=== PATIENT | male | born 1990 | race Caucasian/White ===

== ENCOUNTER 2019-02-10 16:28 | Inpatient (IN) | payer OTHER ==
[~2019-02-10] VITALS: Ht 188 cm; Wt 93.0 kg
[2019-02-10 17:11] VITALS: Ht 188 cm; Wt 93.0 kg
[2019-02-10] MEDS ORDERED: SOD CHLORIDE 0.9% 1,000 ML IV STA (19:12)
[2019-02-10] MEDS ORDERED: ONDANSETRON 4 MG INJ IV STA (19:12)
[2019-02-10] MEDS ORDERED: morphine 4 MG/ML VIAL IV STA ×2 (19:12→21:25)
--- NOTE | 2019-02-10 21:41 | ERD ---
ER Documentation Chief Complaint Chief Complaint cough & body aches last week, ap w/constipation today HPI 28-year-old male presents with multiple complaints. Slight cough and body aches starting last week. Over the last days been having abdominal pain. He said 1-2 episodes of vomiting nonbilious nonbloody. He did have episode of diarrhea today. Diarrhea was out without blood or mucus. Patient denies any suspicious food or foreign travel. Patient points to the mid lower abdomen is primary source of pain. Denies urinary complaints. Pain described as 8 out of 10 and radiates to the right lower back. ROS All systems reviewed and are negative except as per history of present illness. Allergies Allergies: Coded Allergies: No Known Allergy (Unverified , 02/10/19) PMhx/Soc Medical and Surgical Hx: pt denies Medical Hx, pt denies Surgical Hx Hx Alcohol Use: No Hx Substance Use: No Hx Tobacco Use: No Smoking Status: Never smoker FmHx Family History: No diabetes, No coronary disease, No other Physical Exam Vitals Vital Signs Date Temp Pulse Resp B/P (MAP) Pulse Ox O2 O2 Flow FiO2 Time Delivery Rate 02/10/19 100.0 83 18 137/70 99 17:11 (92) Physical Exam Const: No acute distress Head: Atraumatic Eyes: Normal Conjunctiva ENT: Normal External Ears, Nose and Mouth. Neck: Full range of motion. No meningismus. Resp: Clear to auscultation bilaterally Cardio: Regular rate and rhythm, no murmurs Abd: Soft, non tender, non distended. Normal bowel sounds Skin: No petechiae or rashes Back: No midline or flank tenderness Ext: No cyanosis, or edema Neur: Awake and alert Psych: Normal Mood and Affect Result Diagram: 02/10/19194802/10/191948 Results 24 hrs Laboratory Tests Test 02/10/19 19:49 White Blood Count 15.2 10^3/ul Red Blood Count 5.06 10^6/ul Hemoglobin 13.9 g/dl Hematocrit 42.2 % Mean Corpuscular Volume 83.4 fl Mean Corpuscular Hemoglobin 27.5 pg Mean Corpuscular Hemoglobin Concent 32.9 g/dl Red Cell Distribution Width 13.5 % Platelet Count 334 10^3/UL Mean Platelet Volume 10.5 fl Immature Granulocytes % 0.300 % Neutrophils % 89.2 % Lymphocytes % 2.3 % Monocytes % 7.8 % Eosinophils % 0.0 % Basophils % 0.4 % Nucleated Red Blood Cells % 0.0 /100WBC Immature Granulocytes # 0.050 10^3/ul Neutrophils # 13.6 10^3/ul Lymphocytes # 0.4 10^3/ul Monocytes # 1.2 10^3/ul Eosinophils # 0.0 10^3/ul Basophils # 0.1 10^3/ul Nucleated Red Blood Cells # 0.0 10^3/ul Urine Color ALEXANDRE Urine Clarity SLIGHTLY CLOUDY Urine pH 5.0 Urine Specific [place] 1.027 Urine Ketones NEGATIVE mg/dL Urine Nitrite NEGATIVE mg/dL Urine Bilirubin NEGATIVE mg/dL Urine Urobilinogen NEGATIVE mg/dL Urine Leukocyte Esterase NEGATIVE Michelle/ul Urine Microscopic RBC 1 /HPF Urine Microscopic WBC 5 /HPF Urine Bacteria FEW /HPF Urine Mucus MANY /HPF Urine Hemoglobin NEGATIVE mg/dL Urine Glucose NEGATIVE mg/dL Urine Total Protein 1+ mg/dl Sodium Level 143 mmol/L Potassium Level 3.4 mmol/L Chloride Level 104 mmol/L Carbon Dioxide Level 26 mmol/L Anion Gap 13 Blood Urea Nitrogen 13 mg/dl Creatinine 0.85 mg/dl Est Glomerular Filtrat Rate mL/min > 60 mL/min Glucose Level 136 mg/dl Calcium Level 9.1 mg/dl Total Bilirubin 0.8 mg/dl Direct Bilirubin 0.00 mg/dl Indirect Bilirubin 0.8 mg/dl Aspartate Amino Transf (AST/SGOT) 18 IU/L Alanine Aminotransferase (ALT/SGPT) 21 IU/L Alkaline Phosphatase 64 IU/L Total Protein 7.9 g/dl Albumin 4.6 g/dl Globulin 3.30 g/dl Albumin/Globulin Ratio 1.39 Lipase 25 U/L Current Medications Medications Dose Sig/Amee Start Time Status Last (Trade) Ordered Route PRN Stop Time Admin Dose Reason Admin Sodium 1,000 ml @ Q1H STAT 02/10/19 DC 02/10/19 Chloride 1,000 mls/hr IV 19:12 20:00 02/10/19 20:11 Morphine 4 mg ONCE STAT 02/10/19 DC 02/10/19 Sulfate IV 19:12 20:01 (morphine) 02/10/19 19:14 Ondansetron 4 mg ONCE STAT 02/10/19 DC 02/10/19 HCl (Zofran IV 19:12 20:00 Inj) 02/10/19 19:14 Morphine 4 mg ONCE STAT 02/10/19 DC Sulfate IV 21:25 (morphine) 02/10/19 21:26 Procedures/MDM CBC is shows leukocytosis and minimal anemia. CMP shows potassium 3.4 otherwise no acute abnormalities and lipase normal. Urine shows ketones without signs of infection, glucose, additional significant abnormalities. Chest X-ray 1V Interpreted by me: Soft Tissue: No acute abnormalities Bones: No acute abnormalities Mediastinum/Cardiac Silhouette/Lungs: No acute abnormalities. impression- normal 1 view chest x-ray Influenza swab negative. Presents with a history of fever and body aches but has developed some lower abdominal pain has low-grade temperature triage. Concern is for surgical abdomen. Patient was given morphine 4 mg IV, Zofran [address] abdomen pelvis with IV contrast ordered. TIFFANY ALANIS MD Feb 10, 2019 21:41
[2019-02-11] MEDS ORDERED: PIPER-TAZO 3.375 GM IV (PMX) 100 ML IVPB ONE
[2019-02-11] MEDS ORDERED: HYDROmorphONE 1 MG/ML SYG IV STA ×2 (00:36→06:08)
[2019-02-11] MEDS ORDERED: ONDANSETRON 4 MG INJ IV STA (00:36)
[2019-02-11] MEDS ORDERED: NACL 0.9% 3 ML SYG IV SCH (02:00)
[2019-02-11] MEDS ORDERED: PIPER-TAZO 3.375 GM IV (PMX) 100 ML IVPB SCH ×2 (02:00→06:00)
[2019-02-11] MEDS ORDERED: ACETAMINOPHEN 325 MG TAB ONE (02:12)
[2019-02-11] MEDS ORDERED: HYDROmorphONE 2 MG/ML SYG IV STA (02:18)
[2019-02-11] MEDS ORDERED: ACETAMINOPHEN 325 MG TAB PO ONE (02:30)
[2019-02-11] MEDS ORDERED: IBUP-1982 PO (04:16)
[2019-02-11] MEDS ORDERED: ACET-141 PO (04:16)
[2019-02-11] MEDS: DEXTROSE 5%-0.45% NACL 1,000 ML IV SCH ×3 (04:25→19:42)
[2019-02-11] MEDS: morphine 2 MG INJ IV PRN ×3 (05:59→13:48)
[2019-02-11] MEDS: ONDANSETRON 4 MG INJ IV PRN (05:59)
--- NOTE | 2019-02-11 08:03 | HP ---
Date/Time of Note Date/Time of Note DATE: 02/11/19 TIME: 08:01 Assessment/Plan VTE Prophylaxis Pharmacological prophylaxis: heparin Lines/Catheters IV Catheter Type (from Nrs): Peripheral IV Assessment/Plan Assessment/Plan 1. Perforated diverticulitis -IV antibiotic -IV fluid -Awaiting surgical eval 2. Sepsis: As evidenced by fever and leukocytosis: Secondary to above -IV fluid and IV antibiotic -Follow-up culture results -See #1 3. History of bilateral kidney stone: No acute issue Result Diagram: 02/11/19 0532 02/11/19 0532 Results 24hrs Laboratory Tests Test 02/10/19 19:49 02/11/19 05:32 White Blood Count 15.2 H 15.5 H Red Blood Count 5.06 4.55 L Hemoglobin 13.9 L 12.7 L Hematocrit 42.2 38.0 L Mean Corpuscular Volume 83.4 83.5 Mean Corpuscular Hemoglobin 27.5 L 27.9 L Mean Corpuscular Hemoglobin Concent 32.9 33.4 Red Cell Distribution Width 13.5 13.9 Platelet Count 334 289 Mean Platelet Volume 10.5 H 10.0 Immature Granulocytes % 0.300 0.500 H Neutrophils % 89.2 H 81.4 H Segmented Neutrophils % (Manual) 62 63 Band Neutrophils % (Manual) 25 H 24 H Lymphocytes % 2.3 L 9.3 L Lymphocytes % (Manual) 4 L 3 L Monocytes % 7.8 8.7 Monocytes % (Manual) 9 9 Eosinophils % 0.0 0.0 Basophils % 0.4 0.1 Nucleated Red Blood Cells % 0.0 0.0 Immature Granulocytes # 0.050 H 0.070 H Neutrophils # 13.6 H 12.7 H Neutrophils # (Manual) 10.0 H 10.3 H Band Neutrophils # 3.8 H 3.7 H Lymphocytes (Manual) 0.6 L 0.4 L Lymphocytes # 0.4 L 1.5 Monocytes # 1.2 H 1.4 H Monocytes # (Manual) 1.3 H 1.3 H Eosinophils # 0.0 0.0 Basophils # 0.1 0.0 Nucleated Red Blood Cells # 0.0 0.0 Platelet Estimate NORMAL NORMAL Poikilocytosis 2+ Urine Color ALEXANDRE Urine Clarity SLIGHTLY CLOUDY A Urine pH 5.0 Urine Specific [place] 1.027 Urine Ketones NEGATIVE Urine Nitrite NEGATIVE Urine Bilirubin NEGATIVE Urine Urobilinogen NEGATIVE Urine Leukocyte Esterase NEGATIVE Urine Microscopic RBC 1 Urine Microscopic WBC 5 Urine Bacteria FEW A Urine Mucus MANY A Urine Hemoglobin NEGATIVE Urine Glucose NEGATIVE Urine Total Protein 1+ H Sodium Level 143 142 Potassium Level 3.4 L 4.8 Chloride Level 104 105 Carbon Dioxide Level 26 30 Anion Gap 13 7 Blood Urea Nitrogen 13 10 Creatinine 0.85 0.86 Est Glomerular Filtrat Rate mL/min > 60 > 60 Glucose Level 136 134 Calcium Level 9.1 9.2 Total Bilirubin 0.8 0.7 Direct Bilirubin 0.00 0.00 Indirect Bilirubin 0.8 0.7 Aspartate Amino Transf (AST/SGOT) 18 16 Alanine Aminotransferase (ALT/SGPT) 21 19 Alkaline Phosphatase 64 56 Total Protein 7.9 7.2 Albumin 4.6 4.0 Globulin 3.30 H 3.20 Albumin/Globulin Ratio 1.39 1.25 Lipase 25 Reactive Lymphocytes % (Manual) 1 H Reactive Lymphocytes # 0.1 H Anisocytosis 1+ Microcytosis 1+ Phosphorus Level 4.4 Magnesium Level 1.9 HPI/ROS Admit Date/Time Admit Date/Time Hx of Present Illness This is a 28-year-old male with a history of bilateral kidney stone who presents to the ER complaining of abdominal pain and constipation. He said initial symptoms started a week ago which went away and recurred for the past 2 days. In the ER, CT shows perforated diverticulitis. Patient denies history of opiate narcotic use saying that he only takes ibuprofen and Tylenol for pain related to his kidney stone. PMH/Family/Social Past Medical History Past Surgical History Past Surgical Hx: other Family History Significant Family History: no pertinent family hx Social History Alcohol Use: other Smoking Status: Unknown if ever smoked Drug Use: other Exam Constitutional: other (no acute distress) Head: normocephalic ENMT: nl external ears & nose Neck: supple Respiratory: normal air movement Cardiovascular: nl pulses Gastrointestinal: soft Extremities: normal pulses Medications Current Medications Dextrose/Sodium Chloride 1,000 ml @ 125 mls/hr Q8H IV Last administered on 02/11/19at 04:25; Admin Dose 125 MLS/HR; Start 02/11/19 at 01:51 IV Flush (NS 3 ml) 3 ml PER PROTOCOL IV ; Start 02/11/19 at 02:00 Ondansetron HCl (Zofran Inj) 4 mg Q6H PRN IV NAUSEA/VOMITING Last administered on 02/11/19at 05:59; Admin Dose 4 MG; Start 02/11/19 at 02:00 Morphine Sulfate (morphine) 4 mg Q4H PRN IV .SEVERE PAIN 7-10 Last administered on 02/11/19at 05:59; Admin Dose 4 MG; Start 02/11/19 at 02:00 Famotidine (Pepcid Iv) 20 mg Q12 IV ; Start 02/11/19 at 09:00 Piperacillin Sod/ Tazobactam Sod 100 ml @ 200 mls/hr Q6 IVPB Last administered on 02/11/19at 06:10; Admin Dose 200 MLS/HR; Start 02/11/19 at 06:00 Coded Allergies: No Known Allergy (Unverified , 02/10/19) Social History Smoking Status: Never smoker Exam/Review of Systems Vital Signs Vitals Vital Signs Date Temp Pulse Resp B/P (MAP) Pulse Ox O2 O2 Flow FiO2 Time Delivery Rate 02/11/19 98.4 81 14 124/83 100 Room Air 06:30 (97) Intake and Output 02/10/19 02/10/19 02/11/19 1515:00 23:00 07:00 IntakeIntake Total 100 ml BalanceBalance 100 ml MARLA JUSTIN MD Feb 11, 2019 08:03
[2019-02-11 08:15] VITALS: BP 132/62; PULSE 78; RESP 18
[2019-02-11] MEDS ORDERED: VANCOMYCIN IV PER PHARMACY XX SCH (08:30)
--- NOTE | 2019-02-11 09:18 | CONS ---
Assessment/Plan Assessment/Plan Hospital Course (Demo Recall) As above the patient was admitted with the IV antibiotics. Patient feels slightly better overnight. Still complains of abdominal pain. CT scan was performed yesterday that showed perforated diverticulitis with the small pockets of free air, Hinchey 2a classification. White count is still 15,000 Problems: (1) Diverticulitis of both large and small intestine with perforation and abscess Status: Acute Qualifiers: Qualified Codes: K57.40 - Diverticulitis of both small and large intestine with perforation and abscess without bleeding Assessment/Plan (Daily) Acute diverticulitis of the sigmoid colon with microperforation and adjustment abscess. Will observe the patient for the next 24-48 hrs. If there is no improvement the patient may need surgical intervention. Consultation Date/Type/Reason Admit Date/Time Date of Consultation: Feb 11, 2019 Type of Consult Surgical Reason for Consultation Perforated diverticulitis Date/Time of Note DATE: 02/11/19 TIME: 09:07 Hx of Present Illness Otherwise healthy 28-year-old male had attack of abdominal pain approximately a week ago that went away spontaneously. Yesterday she developed another attack of diffuse abdominal pain and chills that brought him to emergency room. In the emergency room patient was found to have elevated white blood count up to 15,[address] scan showed perforated diverticulitis of the sigmoid colon with a pockets of free air. Patient was admitted with broad-spectrum antibiotics. Over the night patient did have additional events. He feels slightly better but still complains of a lot of abdominal pain. His maximum temperature was 101 yesterday, heart rate below 100. Constitutional: febrile, other (Abdominal pain) Eyes: no complaints ENT: no complaints Respiratory: no complaints Cardiovascular: no complaints Gastrointestinal: other (See history of the present illness.) Genitourinary: no complaints Musculoskeletal: no complaints Skin: no complaints Neurologic: no complaints Endocrine: no complaints Lymphatic: no complaints Psychological: no complaints, nl mood/affect Immunologic: no complaints Past Medical History Medical History: no pertinent history Home Meds Reported Medications Acetaminophen* (Acetaminophen*) 500 MG Extra Strength Tablet, 500 MG PO Q4H PRN for PAIN AND OR ELEVATED TEMP, TAB 02/11/19 Ibuprofen* (Ibuprofen*) 200 Mg Capsule, 400 MG PO QID PRN for PAIN, CAP 02/11/19 Medications Current Medications Dextrose/Sodium Chloride 1,000 ml @ 125 mls/hr Q8H IV Last administered on 02/11/19at 04:25; Admin Dose 125 MLS/HR; Start 02/11/19 at 01:51 IV Flush (NS 3 ml) 3 ml PER PROTOCOL IV ; Start 02/11/19 at 02:00 Ondansetron HCl (Zofran Inj) 4 mg Q6H PRN IV NAUSEA/VOMITING Last administered on 02/11/19at 05:59; Admin Dose 4 MG; Start 02/11/19 at 02:00 Morphine Sulfate (morphine) 4 mg Q4H PRN IV .SEVERE PAIN 7-10 Last administered on 02/11/19at 05:59; Admin Dose 4 MG; Start 02/11/19 at 02:00 Famotidine (Pepcid Iv) 20 mg Q12 IV ; Start 02/11/19 at 09:00 Piperacillin Sod/ Tazobactam Sod 100 ml @ 200 mls/hr Q6 IVPB Last administered on 02/11/19at 06:10; Admin Dose 200 MLS/HR; Start 02/11/19 at 06:00 Vancomycin HCl (Vanco Iv Per Pharmacy) VANCOMYCIN PER PHARMACY PER PROTOCOL XX ; Start 02/11/19 at 08:30 Vancomycin HCl 1.75 gm/Sodium Chloride 500 ml @ 125 mls/hr ONCE IVPB ; Start 02/11/19 at 10:00; Stop 02/11/19 at 15:00 Vancomycin HCl 1.25 gm/Sodium Chloride 250 ml @ 83.333 mls/ hr Q8H IVPB ; Start 02/11/19 at 18:00 Allergies: Coded Allergies: No Known Allergy (Unverified , 02/10/19) Past Surgical History Past Surgical Hx: no surgical history Family History Significant Family History: no pertinent family hx Social History Alcohol Use: occasionally Smoking Status: Never smoker Exam/Review of Systems Exam Vitals Vital Signs Date Temp Pulse Resp B/P (MAP) Pulse Ox O2 O2 Flow FiO2 Time Delivery Rate 02/11/19 88 16 140/85 100 Room Air 08:01 (103) 02/11/19 98.4 06:30 Intake and Output 02/10/19 02/10/19 02/11/19 1515:00 23:00 07:00 IntakeIntake Total 100 ml BalanceBalance 100 ml Constitutional: alert, oriented, well developed Psych: no complaints, nl mood/affect Head: normocephalic, atraumatic Eyes: nl conjunctiva, EOMI, nl lids, nl sclera, PERRL ENMT: nl external ears & nose, nl lips & teeth, nl nasal mucosa & septum Neck: supple, non-tender Respiratory: clear to auscultation, normal air movement Cardiovascular: regular rate and rhythm, nl pulses Gastrointestinal: other (Abdomen is diffusely tender more on the left left low er quadrant. There is a rebound sign in the left lower quadrant.) Musculoskeletal: nl extremities to inspection, nl gait and stance Extremities: normal pulses Neurological: RIP SAWYER II-XII intact, nl mental status, nl speech, nl strength Skin: nl turgor; No rash or lesions Lymph: nl lymph nodes Results Result Diagram: 02/11/19 0532 02/11/19 0532 Results 24hrs Laboratory Tests Test 02/10/19 19:49 02/11/19 05:32 White Blood Count 15.2 H 15.5 H Red Blood Count 5.06 4.55 L Hemoglobin 13.9 L 12.7 L Hematocrit 42.2 38.0 L Mean Corpuscular Volume 83.4 83.5 Mean Corpuscular Hemoglobin 27.5 L 27.9 L Mean Corpuscular Hemoglobin Concent 32.9 33.4 Red Cell Distribution Width 13.5 13.9 Platelet Count 334 289 Mean Platelet Volume 10.5 H 10.0 Immature Granulocytes % 0.300 0.500 H Neutrophils % 89.2 H 81.4 H Segmented Neutrophils % (Manual) 62 63 Band Neutrophils % (Manual) 25 H 24 H Lymphocytes % 2.3 L 9.3 L Lymphocytes % (Manual) 4 L 3 L Monocytes % 7.8 8.7 Monocytes % (Manual) 9 9 Eosinophils % 0.0 0.0 Basophils % 0.4 0.1 Nucleated Red Blood Cells % 0.0 0.0 Immature Granulocytes # 0.050 H 0.070 H Neutrophils # 13.6 H 12.7 H Neutrophils # (Manual) 10.0 H 10.3 H Band Neutrophils # 3.8 H 3.7 H Lymphocytes (Manual) 0.6 L 0.4 L Lymphocytes # 0.4 L 1.5 Monocytes # 1.2 H 1.4 H Monocytes # (Manual) 1.3 H 1.3 H Eosinophils # 0.0 0.0 Basophils # 0.1 0.0 Nucleated Red Blood Cells # 0.0 0.0 Platelet Estimate NORMAL NORMAL Poikilocytosis 2+ Urine Color ALEXANDRE Urine Clarity SLIGHTLY CLOUDY A Urine pH 5.0 Urine Specific [place] 1.027 Urine Ketones NEGATIVE Urine Nitrite NEGATIVE Urine Bilirubin NEGATIVE Urine Urobilinogen NEGATIVE Urine Leukocyte Esterase NEGATIVE Urine Microscopic RBC 1 Urine Microscopic WBC 5 Urine Bacteria FEW A Urine Mucus MANY A Urine Hemoglobin NEGATIVE Urine Glucose NEGATIVE Urine Total Protein 1+ H Sodium Level 143 142 Potassium Level 3.4 L 4.8 Chloride Level 104 105 Carbon Dioxide Level 26 30 Anion Gap 13 7 Blood Urea Nitrogen 13 10 Creatinine 0.85 0.86 Est Glomerular Filtrat Rate mL/min > 60 > 60 Glucose Level 136 134 Calcium Level 9.1 9.2 Total Bilirubin 0.8 0.7 Direct Bilirubin 0.00 0.00 Indirect Bilirubin 0.8 0.7 Aspartate Amino Transf (AST/SGOT) 18 16 Alanine Aminotransferase (ALT/SGPT) 21 19 Alkaline Phosphatase 64 56 Total Protein 7.9 7.2 Albumin 4.6 4.0 Globulin 3.30 H 3.20 Albumin/Globulin Ratio 1.39 1.25 Lipase 25 Reactive Lymphocytes % (Manual) 1 H Reactive Lymphocytes # 0.1 H Anisocytosis 1+ Microcytosis 1+ Phosphorus Level 4.4 Magnesium Level 1.9 Medications Medication Current Medications Dextrose/Sodium Chloride 1,000 ml @ 125 mls/hr Q8H IV Last administered on 02/11/19at 04:25; Admin Dose 125 MLS/HR; Start 02/11/19 at 01:51 IV Flush (NS 3 ml) 3 ml PER PROTOCOL IV ; Start 02/11/19 at 02:00 Ondansetron HCl (Zofran Inj) 4 mg Q6H PRN IV NAUSEA/VOMITING Last administered on 02/11/19at 05:59; Admin Dose 4 MG; Start 02/11/19 at 02:00 Morphine Sulfate (morphine) 4 mg Q4H PRN IV .SEVERE PAIN 7-10 Last administered on 02/11/19at 05:59; Admin Dose 4 MG; Start 02/11/19 at 02:00 Famotidine (Pepcid Iv) 20 mg Q12 IV ; Start 02/11/19 at 09:00 Piperacillin Sod/ Tazobactam Sod 100 ml @ 200 mls/hr Q6 IVPB Last administered on 02/11/19at 06:10; Admin Dose 200 MLS/HR; Start 02/11/19 at 06:00 Vancomycin HCl (Vanco Iv Per Pharmacy) VANCOMYCIN PER PHARMACY PER PROTOCOL XX ; Start 02/11/19 at 08:30 Vancomycin HCl 1.75 gm/Sodium Chloride 500 ml @ 125 mls/hr ONCE IVPB ; Start 02/11/19 at 10:00; Stop 02/11/19 at 15:00 Vancomycin HCl 1.25 gm/Sodium Chloride 250 ml @ 83.333 mls/ hr Q8H IVPB ; Start 02/11/19 at 18:00 CARMEN CHAIREZ MD Feb 11, 2019 09:18
[2019-02-11] MEDS: FAMOTIDINE 20 MG INJ IV SCH ×2 (09:50→22:03)
[2019-02-11] MEDS ORDERED: VANCOMYCIN HCL 1.75 GM in SOD CHLORIDE 0.9% 500 ML IVPB SCH (10:00)
--- NOTE | 2019-02-11 10:55 | CONS ---
DATE OF ADMISSION: 02/11/2019 DATE OF CONSULTATION: 02/11/2019 TYPE OF CONSULTATION: Infectious Disease. REASON FOR CONSULTATION: Antibiotic management. HISTORY OF PRESENT ILLNESS: Kain Pagan is a 28-year-old male who comes in with cough, body aches and multiple complaints. His cough and body aches started last week. He has had abdominal pa in, one to two episodes of nausea and vomiting as well as diarrhea today, the day of admission. His m id lower abdomen is the primary source of pain. Denies urinary complaints. Pain is described as 8/1 0. FAMILY HISTORY: Unremarkable. FAMILY HISTORY: Unremarkable. SOCIAL HISTORY: He does not smoke, drink or abuse drugs. ALLERGIES: NONE TO PENICILLIN, SULFA OR FOODS. MEDICATIONS: Per chart. REVIEW OF SYSTEMS: Noncontributory. PHYSICAL EXAMINATION: GENERAL: He is in no acute distress. VITAL SIGNS: T-max of 100. SKIN: Without generalized rash. HEENT: Within normal limits. NECK: Supple. LYMPH NODES: None palpable. CHEST: Decreased breath sounds at the bases. HEART: Without murmur or gallop. ABDOMEN: Soft, nontender, without organosplenomegaly or masses. EXTREMITIES: Without cyanosis, clubbing, or edema. RECTAL AND GENITAL: Deferred. NEUROLOGIC: No focal neurological abnormality. ANCILLARY LABORATORY DATA: White count is 15.2, H and H 13.9 and 42.2, platelet count 334,000. BUN and creatinine 13/0.85, potassium of 3.4, glucose 136. He has 89% neutrophils with a white count of 15.2 and his urine is unremarkable. Chest x-ray: No acute abnormalities. Influenza swab was negative. A CT scan of the abdomen and pel vis was done which showed a perforated sigmoid diverticulum, some perforated diverticulitis with smal l amount of free air. Surgical consultation is recommended. Small 1.2 x 1.1 x 2.9 cm collection fec ulent material noted within the second diverticulum versus extraluminal collection in the adjacent mi d pelvis, small 2 x 1.4 x 3.4 cm dependent extraluminal collection of air and fluid noted in the post erior left lower quadrant along the anterior margin of the psoas muscle and external iliac vasculatur e. These collections are probably too small to be amenable to drainage. Bowel is nonobstructed. Th e appendix is nondilated, mild hepatosplenomegaly, small probable hemangioma in hepatic segment 6, no nephrolithiasis or hydronephrosis, nonspecific straightening of lumbar lordosis, possibly reflecting muscle spasm. IMPRESSION AND PLAN: The patient was started on vancomycin and Zosyn. The patient was consulted by GI, diverticulosis, diverticulitis of both large and small intestine with perforation and abscess, ac [place] diverticulitis of the sigmoid colon with microperforation and abscess. The patient may need surgical intervention. We will continue him on current vancomycin and Zosyn. I will dictate my fin dings to the hospitalist and to Dr. Gillis. Dictated By: NEDA SHEA MD, JD/CHIKA Conf#: [id number] DID#: [id number]
[2019-02-11 11:45] VITALS: PULSE 92
--- NOTE | 2019-02-11 12:23 | PN ---
Date/Time of Note Date/Time of Note DATE: 02/11/19 TIME: 12:23 Objective Vitals Vital Signs Date Temp Pulse Resp B/P (MAP) Pulse Ox O2 O2 Flow FiO2 Time Delivery Rate 02/11/19 101.6 92 11:45 02/11/19 18 132/62 99 Room Air 08:15 (85) Intake and Output 02/10/19 02/10/19 02/11/19 1515:00 23:00 07:00 IntakeIntake Total 100 ml BalanceBalance 100 ml Results Result Diagram: 02/11/19 0532 02/11/19 0532 Medications Medications Current Medications Dextrose/Sodium Chloride 1,000 ml @ 125 mls/hr Q8H IV Last administered on 02/11/19 04:25; Admin Dose 125 MLS/HR; Start 02/11/19 at 01:51 IV Flush (NS 3 ml) 3 ml PER PROTOCOL IV ; Start 02/11/19 at 02:00 Ondansetron HCl (Zofran Inj) 4 mg Q6H PRN IV NAUSEA/VOMITING Last administered on 02/11/19at 05:59; Admin Dose 4 MG; Start 02/11/19 at 02:00 Morphine Sulfate (morphine) 4 mg Q4H PRN IV .SEVERE PAIN 7-10 Last administered on 02/11/19at 09:50; Admin Dose 4 MG; Start 02/11/19 at 02:00 Famotidine (Pepcid Iv) 20 mg Q12 IV Last administered on 02/11/19at 09:50; Admin Dose 20 MG; Start 02/11/19 at 09:00 Vancomycin HCl 1.75 gm/Sodium Chloride 500 ml @ 125 mls/hr ONCE IVPB Last administered on 02/11/19at 11:35; Admin Dose 125 MLS/HR; Start 02/11/19 at 10:00; Stop 02/11/19 at 15:00 Meropenem/Sodium Chloride 50 ml @ 100 mls/hr Q8 IVPB ; Start 02/11/19 at 14:00 Acetaminophen 100 ml @ 400 mls/hr Q6H PRN IVPB pain/fever; Start 02/11/19 at 12:00; Stop 02/12/19 at 11:59 Lines/Catheters IV Catheter Type: De Dios in Place: No Assessment/Plan Hospital Course Subjective Patient in moderate distress, stating his abdomen is still painful however mildly improved Objective Physical exam General: Patient is laying in bed and answers questions appropriately Mentation: Patient is alert and oriented 4, Head: Normocephalic atraumatic Eyes: EOMI, pupils reactive to light Neck: Supple, nontender, midline Respiratory: Clear to auscultation bilaterally Cardiovascular: regular rate, no obvious murmurs Gastrointestinal: Tender to palpation, bowel sounds heard. Neurological: Moves all extremities spontaneously Skin: No new skin lesions Assessment and plan Perforated diverticulitis -General surgery on board, may need surgery -IV Merrem -ID consulted -Cultures -Pain control Sepsis -IV fluid -Blood cultures -IV antibiotic -ID consulted History of bilateral kidney stone -Monitor, not acute issue at this time Disposition -Per general surgery will monitor for the next 24 hours and decide whether or not to proceed with surgery. MAN THOMPSON Feb 11, 2019 12:23
[2019-02-11 13:36] VITALS: BP 154/74; PULSE 101; RESP 18
[2019-02-11] MEDS: MEROPENEM 1 GM/50ML(PMX) 50 ML IVPB SCH ×2 (15:57→22:03)
[2019-02-11] MEDS: ACETAMINOPHEN 1000MG/100ML IV 100 ML IVPB PRN (16:48)
[2019-02-11] MEDS ORDERED: VANCOMYCIN HCL 1.25 GM in SOD CHLORIDE 0.9% 250 ML IVPB SCH (18:00)
--- NOTE | 2019-02-11 19:24 | PN ---
Date/Time of Note Date/Time of Note DATE: 02/11/19 TIME: 18:58 Assessment/Plan Lines/Catheters IV Catheter Type (from Nrsg): De Dios in Place (from Nrs): No Assessment/Plan Chief Complaint/Hosp Course 28 year old with 1 wk of intermittent pain admitted with microperforation - overnight pt has been stable and decision was made by Dr. Gillis to continue monitor the patient. Today pain has improved and pt has had a bowel movement. He has + BS and on examination tenderness is less per patient report off narcotics for 4 hrs. Vital signs are hyperdynamic with intermittent fevers, p hysiologically pt is controlling the infection. Assessment/Plan 28 year old with Microperforation -- plan for conservative management with close follow up -- long discussion with the patient and family with the decision as per family request to wait further to potentially avoid a colostomy, I did discuss the Pros and Cons of each approach including potential sepsis and multiorgan failure and being a major concern. Continue Antibiotics and IVF, Strict NPO for now. Subjective 24 Hr Interval Summary Here for Surgical follow up -- Dr. Gillis had seen and examined the patient in am and determined that the patient is stable for observation and non surgical treatment of microperforation of the Sigmoid Colon - over the course of the day patient has improved with less pain upon my examination. Nurse stated that 4 hrs prior to my examination pt received Morphine 4 mg, pt states that he went to the bathroom and had a bowel movement with significant improvement of his overall symptoms in the last few hours. Constitutional: improved, ambulates, BM, flatus, febrile, requiring IVF Feeding: NPO Pain Control: mild Additional Comments Pt was seen in the presence of mother and friend and the nurse, pt states that he is feeling better, less pain. Nursing confirms findings. Detailed Summary Eyes: No no complaints, No pain, No discharge, No redness, No visual change, No other ENT: No no complaints, No bleeding, No pain, No congestion, No discharge, No dysphagia, No sore throat, No other Respiratory: No no complaints, No pain, No cough, No pleuritic pain, No shortness of breath, No sputum, No wheezing, No other Cardiovascular: No no complaints, No chest pain, No edema, No lightheadedness, No orthopenea, No palpitations, No paroxysmal nocturnal dyspnea, No other Gastrointestinal: pain, flatus, passing stool Genitourinary: No no complaints, No bleeding, No dysuria, No discharge, No flank pain, No hematuria, No other Musculoskeletal: No no complaints, No back pain, No bone/joint pain, No neck pain, No restricted range of motion, No swelling, No other Skin: No no complaints, No bruising, No erythema, No laceration, No pruritis, No rash, No skin lesions, No other Neurologic: No no complaints, No confusion, No dizziness, No focal-weakness, No headache, No syncope, No seizure, No other Endocrine: No no complaints, No polyuria, No polydypsia, No dry skin, No temp intolerance, No other Lymphatic: No no complaints, No adenopathy, No tender nodes, No lymphadema, No other Psychological: No no complaints, No nl mood/affect, No anxiety, No confusion, No depression, No suicidal, No other Immunologic: No no complaints, No immunodeficiency, No pruritis, No rhinitis, No urticaria, No other Exam/Review of Systems Vital Signs Vitals Vital Signs Date Temp Pulse Resp B/P (MAP) Pulse Ox O2 O2 Flow FiO2 Time Delivery Rate 02/11/19 100.9 101 18 154/74 97 13:36 (100) 02/11/19 Room Air 08:15 Intake and Output 02/10/19 02/10/19 02/11/19 1515:00 23:00 07:00 IntakeIntake Total 100 ml BalanceBalance 100 ml Exam Constitutional: alert, oriented, well developed Psych: no complaints, nl mood/affect Head: normocephalic, atraumatic Eyes: nl conjunctiva ENMT: nl external ears & nose Neck: supple Respiratory: clear to auscultation Cardiovascular: regular rate and rhythm Gastrointestinal: soft, other (Pt abd exam improved with no rebound, or Guard ing, +BS -- tender LLQ only ) Neurological: No BRAND LEAD II-XII intact, No nl mental status, No nl speech, No nl strength, No confused, No DTR's symmetric, No focal weakness, No lethargic, No numbness, No reflexes, No unresponsive, No other Additional Comments CT reading was reviewed -- images reviewed Results Result Diagram: 02/11/19 0532 02/11/19 0532 RANJITH RICE MD Feb 11, 2019 19:19
[2019-02-11 20:03] VITALS: BP 127/63; PULSE 80; RESP 16
[2019-02-12] MEDS: DEXTROSE 5%-0.45% NACL 1,000 ML IV SCH ×3 (01:51→14:01)
[2019-02-12] MEDS: ACETAMINOPHEN 1000MG/100ML IV 100 ML IVPB PRN (02:43)
[2019-02-12 02:53] VITALS: BP 130/69; PULSE 90; RESP 16
[2019-02-12] MEDS: MEROPENEM 1 GM/50ML(PMX) 50 ML IVPB SCH ×2 (05:45→13:58)
[2019-02-12] MEDS: ONDANSETRON 4 MG INJ IV PRN (06:52)
[2019-02-12] MEDS: morphine 2 MG INJ IV PRN ×2 (06:53→20:09)
[2019-02-12 08:00] VITALS: BP 115/66; PULSE 82; RESP 18
[2019-02-12] MEDS: FAMOTIDINE 20 MG INJ IV SCH ×2 (09:17→21:49)
[2019-02-12 14:00] VITALS: BP 94/55; PULSE 93; RESP 18
[2019-02-12] MEDS ORDERED: ACETAMINOPHEN 1000MG/100ML IV 100 ML IVPB PRN (14:00)
--- NOTE | 2019-02-12 15:31 | CONS ---
Assessment/Plan Assessment/Plan Hospital Course (Demo Recall) Patient is alert and lying comfortably in bed he is spiking low-grade fevers with a T-max yesterday 101.4 last night 100 and this morning 98.7. Patient with mild abdominal pain. WBC 17.3 platelets 286 neutrophils 85.2 BUN 9 creatinine 0.86 Microbiology: Blood culture remain negative Antimicrobials: Vanco Merrem Physical examination: Well-developed young man who is alert in no distress head atraumatic normocephalic neck is supple chest rise symmetrical breath sounds clear heart: S1-S2 abdomen soft mild tenderness on palpation. Extremities without cyanosis Assessment: 1. Systemic inflammatory response syndrome 2. Perforated sigmoid diverticulitis Plan: Patient is clinically stable, he is being followed by surgical team, we will add antifungal coverage, continue on current antibiotics. No need to add Flagyl as meropenem has an excellent anaerobic coverage Consultation Date/Type/Reason Admit Date/Time Feb 11, 2019 at 00:43 Initial Consult Date 02/11/19 Type of Consult id Date/Time of Note DATE: 02/12/19 TIME: 15:31 Exam/Review of Systems Exam Vitals Vital Signs Date Temp Pulse Resp B/P (MAP) Pulse Ox O2 O2 Flow FiO2 Time Delivery Rate 02/12/19 98.7 82 18 115/66 94 08:00 (82) 02/11/19 Room Air 08:15 Intake and Output 02/11/19 02/11/19 02/12/19 1515:00 23:00 07:00 IntakeIntake Total 1700 ml 1150 ml BalanceBalance 1700 ml 1150 ml Results Result Diagram: 02/12/19 0432 02/12/19 0432 Results 24hrs Laboratory Tests Test 02/12/19 04:32 White Blood Count 17.3 H Red Blood Count 4.39 L Hemoglobin 12.3 L Hematocrit 37.4 L Mean Corpuscular Volume 85.2 Mean Corpuscular Hemoglobin 28.0 L Mean Corpuscular Hemoglobin Concent 32.9 Red Cell Distribution Width 13.7 Platelet Count 286 Mean Platelet Volume 11.0 H Immature Granulocytes % 1.300 H Neutrophils % 85.2 H Lymphocytes % 5.7 L Monocytes % 7.5 Eosinophils % 0.1 Basophils % 0.2 Nucleated Red Blood Cells % 0.0 Immature Granulocytes # 0.230 H Neutrophils # 14.8 H Lymphocytes # 1.0 Monocytes # 1.3 H Eosinophils # 0.0 Basophils # 0.0 Nucleated Red Blood Cells # 0.0 Sodium Level 142 Potassium Level 4.3 Chloride Level 104 Carbon Dioxide Level 31 Anion Gap 7 Blood Urea Nitrogen 9 Creatinine 0.86 Est Glomerular Filtrat Rate mL/min > 60 Glucose Level 111 Calcium Level 9.0 Phosphorus Level 3.1 Magnesium Level 2.3 Medications Medication Current Medications Dextrose/Sodium Chloride 1,000 ml @ 125 mls/hr Q8H IV Last administered on 02/12/19 14:01; Admin Dose 125 MLS/HR; Start 02/11/19 at 01:51 IV Flush (NS 3 ml) 3 ml PER PROTOCOL IV ; Start 02/11/19 at 02:00 Ondansetron HCl (Zofran Inj) 4 mg Q6H PRN IV NAUSEA/VOMITING Last administered on 02/12/19 06:52; Admin Dose 4 MG; Start 02/11/19 at 02:00 Morphine Sulfate (morphine) 4 mg Q4H PRN IV .SEVERE PAIN 7-10 Last administered on 02/12/19 06:53; Admin Dose 4 MG; Start 02/11/19 at 02:00 Famotidine (Pepcid Iv) 20 mg Q12 IV Last administered on 02/12/19 09:17; Admin Dose 20 MG; Start 02/11/19 at 09:00 Meropenem/Sodium Chloride 50 ml @ 100 mls/hr Q8 IVPB Last administered on 02/12/19 13:58; Admin Dose 100 MLS/HR; Start 02/11/19 at 14:00 Acetaminophen 100 ml @ 400 mls/hr Q6H PRN IVPB FEVER Last administered on 02/12/19 13:58; Admin Dose 400 MLS/HR; Start 02/12/19 at 14:00; Stop 02/13/19 at 13:59 MINDA CANTRELL NP Feb 12, 2019 15:31
[2019-02-12] MEDS ORDERED: VANCOMYCIN IV PER PHARMACY XX SCH (16:00)
[2019-02-12] MEDS ORDERED: FLUCONAZOLE 100 MG/50 ML (PMX) 50 ML IVPB SCH (16:00)
--- NOTE | 2019-02-12 16:12 | PN ---
Date/Time of Note Date/Time of Note DATE: 02/12/19 TIME: 16:10 Objective Vitals Vital Signs Date Temp Pulse Resp B/P (MAP) Pulse Ox O2 O2 Flow FiO2 Time Delivery Rate 02/12/19 98.7 82 18 115/66 94 08:00 (82) 02/11/19 Room Air 08:15 Intake and Output 02/11/19 02/11/19 02/12/19 1515:00 23:00 07:00 IntakeIntake Total 1700 ml 1150 ml BalanceBalance 1700 ml 1150 ml Results Result Diagram: 02/12/19 0432 02/12/19 0432 Medications Medications Current Medications Dextrose/Sodium Chloride 1,000 ml @ 125 mls/hr Q8H IV Last administered on 02/12/19at 14:01; Admin Dose 125 MLS/HR; Start 02/11/19 at 01:51 IV Flush (NS 3 ml) 3 ml PER PROTOCOL IV ; Start 02/11/19 at 02:00 Ondansetron HCl (Zofran Inj) 4 mg Q6H PRN IV NAUSEA/VOMITING Last administered on 02/12/19at 06:52; Admin Dose 4 MG; Start 02/11/19 at 02:00 Morphine Sulfate (morphine) 4 mg Q4H PRN IV .SEVERE PAIN 7-10 Last administered on 02/12/19at 06:53; Admin Dose 4 MG; Start 02/11/19 at 02:00 Famotidine (Pepcid Iv) 20 mg Q12 IV Last administered on 02/12/19at 09:17; Admin Dose 20 MG; Start 02/11/19 at 09:00 Meropenem/Sodium Chloride 50 ml @ 100 mls/hr Q8 IVPB Last administered on 02/12/19at 13:58; Admin Dose 100 MLS/HR; Start 02/11/19 at 14:00 Acetaminophen 100 ml @ 400 mls/hr Q6H PRN IVPB FEVER Last administered on 02/12/19 13:58; Admin Dose 400 MLS/HR; Start 02/12/19 at 14:00; Stop 02/13/19 at 13:59 Vancomycin HCl (Vanco Iv Per Pharmacy) VANCOMYCIN PER PHARMACY PER PROTOCOL XX ; Start 02/12/19 at 16:00; Status UNV Fluconazole/ Sodium Chloride 50 ml @ 50 mls/hr Q24H IVPB ; Start 02/12/19 at 16:00; Status UNV VTE Prophylaxis Risk score (from Ns)>0 risk: 0 SCD applied (from Ns): Yes Lines/Catheters IV Catheter Type: De Dios in Place: No Assessment/Plan Hospital Course Subjective Patient states abdomen is getting mildly better Objective Physical exam General: Patient is laying in bed and answers questions appropriately Mentation: Patient is alert and oriented 4, Head: Normocephalic atraumatic Eyes: EOMI, pupils reactive to light Neck: Supple, nontender, midline Respiratory: Clear to auscultation bilaterally Cardiovascular: regular rate, no obvious murmurs Gastrointestinal: Tender to palpation, bowel sounds heard. Neurological: Moves all extremities spontaneously Skin: No new skin lesions Assessment and plan Perforated diverticulitis, microperforation per general surgery -General surgery on board, general surgeon spoke with family and patient and subsequently decided for conservative antibiotic treatment instead of surgery. -IV antibiotic per infectious disease -ID on board -Cultures -Pain control Sepsis -IV fluid -Blood cultures -IV antibiotic -ID consulted History of bilateral kidney stone -Monitor, not acute issue at this time Disposition -Maximum medical therapy per infectious disease and general surgery for now, continue to monitor inpatient. Patient has decided not to pursue surgery at this time. MAN THOMPSON Feb 12, 2019 16:12
--- NOTE | 2019-02-12 18:17 | PN ---
Date/Time of Note Date/Time of Note DATE: 02/12/19 TIME: 18:08 Assessment/Plan Lines/Catheters IV Catheter Type (from Nrsg): Central line still needed: No De Dios in Place (from Nrsg): No Assessment/Plan Chief Complaint/Hosp Course 28 year old with 1 wk of intermittent pain admitted with microperforation - overnight pt has been stable and decision was made by Dr. Gillis to continue monitor the patient. Today pain has improved and pt has had a bowel movement, F ever resolved/. He has + BS and on examination tenderness is less per patient report off narcotics for 16 hrs. Vital signs are improving with no fevers and tachycardia, physiologically pt is controlling the infection. Antibx adjusted by ID and Antifungal added. Problems: (1) Diverticulitis of both large and small intestine with perforation and abscess Status: Acute Qualifiers: Diverticulitis bleeding: without bleeding Qualified Codes: K57.40 - Diverticulitis of both small and large intestine with perforation and abscess without bleeding Assessment/Plan Continue antibx - Plan for Repeat CAT on HD 3 - possible IR drainage on HD 4 -- CT needs to be done in the afternoon tomorrow, No PO contrast needed. Subjective 24 Hr Interval Summary PT feels much better with resolution of his abdominal pain, he has not used any IV pain medication, he is having lose stools, denies any fever or chills, he now has an appetite Constitutional: improved, BM, flatus Feeding: NPO Pain Control: well controlled Exam/Review of Systems Vital Signs Vitals Vital Signs Date Temp Pulse Resp B/P (MAP) Pulse Ox O2 O2 Flow FiO2 Time Delivery Rate 02/12/19 98.7 82 18 115/66 94 08:00 (82) 02/11/19 Room Air 08:15 Intake and Output 02/11/19 02/11/19 02/12/19 1515:00 23:00 07:00 IntakeIntake Total 1700 ml 1150 ml BalanceBalance 1700 ml 1150 ml Exam Constitutional: alert, oriented, well developed Psych: No no complaints, No nl mood/affect, No anxiety, No confusion, No depression, No suicidal, No other Head: other (JORGE - intermittent ) Eyes: No nl conjunctiva, No EOMI, No nl lids, No nl sclera, No PERRL, No icteric, No fundi, disc, No other ENMT: No nl external ears & nose, No nl lips & teeth, No nl nasal mucosa & septum, No mucosa pink and moist, No intubated, No tympanic membranes, No other Neck: No supple, No non-tender, No jvd, No bruits, No masses, No thyromegaly, No nuchal rigidity, No other Respiratory: No clear to auscultation, No normal air movement, No congested cough, No crackles/rales, No diminished breath sounds, No intercostal retraction, No labored breathing, No respirations, No tactile fremitus, No wheezing, No other Cardiovascular: No regular rate and rhythm, No nl pulses, No bruits, No diastolic murmur, No edema, No gallop, No irregular rhythm, No jugular venous distention (JVD), No murmurs/extra sounds, No rub, No systolic murmur, No S3, No S4, No other Gastrointestinal: soft, tender (LLQ - Suprapubic - improved mild ) Extremities: No normal pulses, No calf tenderness, No cyanosis, No clubbing, No edema, No pitting pedal edema, No palpable cord, No tenderness, No other Neurological: No FUEL DOCK ATTENDANT II-XII intact, No nl mental status, No nl speech, No nl strength, No confused, No DTR's symmetric, No focal weakness, No lethargic, No numbness, No reflexes, No unresponsive, No other Skin: No nl turgor, No rash or lesions, No diaphoresis, No ecchymosis, No laceration, No puncture, No other Lymph: No nl lymph nodes, No enlarged, No nontender, No other Results Result Diagram: 02/12/19 0432 02/12/19 0432 RANJITH RICE MD Feb 12, 2019 18:17
[2019-02-12] MEDS ORDERED: VANCOMYCIN HCL 1.75 GM in SOD CHLORIDE 0.9% 500 ML IVPB SCH (18:30)
[2019-02-12 19:43] VITALS: BP 117/69; PULSE 85; RESP 20
[2019-02-12] MEDS: FLUCONAZOLE 100 MG/50 ML (PMX) 50 ML IVPB SCH (23:03)
[2019-02-13] MEDS: MEROPENEM 1 GM/50ML(PMX) 50 ML IVPB SCH ×4 (00:14→22:23)
[2019-02-13] MEDS: VANCOMYCIN HCL 1.25 GM in SOD CHLORIDE 0.9% 250 ML IVPB SCH ×3 (01:30→18:11)
[2019-02-13 02:25] VITALS: BP 112/72; PULSE 81; RESP 20
[2019-02-13] MEDS: morphine 2 MG INJ IV PRN ×3 (03:58→17:30)
[2019-02-13 08:18] VITALS: BP 130/70; PULSE 71; RESP 18
[2019-02-13] MEDS: FAMOTIDINE 20 MG INJ IV SCH ×2 (09:07→21:05)
[2019-02-13] MEDS: DEXTROSE 5%-0.45% NACL 1,000 ML IV SCH ×3 (09:51→16:57)
--- NOTE | 2019-02-13 12:39 | PN ---
Date/Time of Note Date/Time of Note DATE: 02/13/19 TIME: 12:38 Objective Vitals Vital Signs Date Temp Pulse Resp B/P (MAP) Pulse Ox O2 O2 Flow FiO2 Time Delivery Rate 02/13/19 98.5 71 18 130/70 99 08:18 (90) 02/13/19 Room Air 02:25 Intake and Output 02/12/19 02/12/19 02/13/19 1414:59 22:59 06:59 IntakeIntake Total 1000 ml 650 ml 1085 ml OutputOutput Total 600 ml 400 ml BalanceBalance 400 ml 250 ml 1085 ml Results Result Diagram: 02/13/19 0424 02/13/19 0424 Medications Medications Current Medications Dextrose/Sodium Chloride 1,000 ml @ 125 mls/hr Q8H IV Last administered on 02/13/19at 10:10; Admin Dose 125 MLS/HR; Start 02/11/19 at 01:51 IV Flush (NS 3 ml) 3 ml PER PROTOCOL IV ; Start 02/11/19 at 02:00 Ondansetron HCl (Zofran Inj) 4 mg Q6H PRN IV NAUSEA/VOMITING Last administered on 02/12/19at 06:52; Admin Dose 4 MG; Start 02/11/19 at 02:00 Morphine Sulfate (morphine) 4 mg Q4H PRN IV .SEVERE PAIN 7-10 Last administered on 02/13/19at 10:50; Admin Dose 4 MG; Start 02/11/19 at 02:00 Famotidine (Pepcid Iv) 20 mg Q12 IV Last administered on 02/13/19at 09:07; Admin Dose 20 MG; Start 02/11/19 at 09:00 Meropenem/Sodium Chloride 50 ml @ 100 mls/hr Q8 IVPB Last administered on 02/13/19at 05:10; Admin Dose 100 MLS/HR; Start 02/11/19 at 14:00 Acetaminophen 100 ml @ 400 mls/hr Q6H PRN IVPB FEVER Last administered on 02/12/19at 13:58; Admin Dose 400 MLS/HR; Start 02/12/19 at 14:00; Stop 02/13/19 at 13:59 Vancomycin HCl (Vanco Iv Per Pharmacy) VANCOMYCIN PER PHARMACY PER PROTOCOL XX ; Start 02/12/19 at 16:00 Vancomycin HCl 1.25 gm/Sodium Chloride 250 ml @ 83.333 mls/ hr Q8H IVPB Last administered on 02/13/19at 10:10; Admin Dose 83.333 MLS/HR; Start 02/13/19 at 02:00 Fluconazole/ Sodium Chloride 50 ml @ 50 mls/hr Q24H IVPB Last administered on 02/12/19at 23:03; Admin Dose 50 MLS/HR; Start 02/12/19 at 20:00 Potassium Chloride 100 ml @ 50 mls/hr Q2H IVPB ; Start 02/13/19 at 09:30; Stop 02/13/19 at 13:29 Miscellaneous Information (*Rx Drug Level Order Reminder*) VANCO TROUGH @ 1,700 1700 ONCE XX ; Start 02/13/19 at 17:00; Stop 02/13/19 at 17:01 VTE Prophylaxis Risk score (from Ns)>0 risk: 0 SCD applied (from [facility] [place]): Yes Lines/Catheters IV Catheter Type: De Dios in Place: No Assessment/Plan Hospital Course Subjective Patient states abdomen is getting mildly better Objective Physical exam General: Patient is laying in bed and answers questions appropriately Mentation: Patient is alert and oriented 4, Head: Normocephalic atraumatic Eyes: EOMI, pupils reactive to light Neck: Supple, nontender, midline Respiratory: Clear to auscultation bilaterally Cardiovascular: regular rate, no obvious murmurs Gastrointestinal: Tender to palpation, bowel sounds heard. Neurological: Moves all extremities spontaneously Skin: No new skin lesions Assessment and plan Perforated diverticulitis, microperforation per general surgery -General surgery on board, general surgeon spoke with family and patient and subsequently decided for conservative antibiotic treatment instead of surgery. -IV antibiotic per infectious disease -ID on board -Cultures -Pain control -Per surgery, okay to start on clears Sepsis -IV fluid -Blood cultures -IV antibiotic -ID consulted History of bilateral kidney stone -Monitor, not acute issue at this time Diarrhea -About once every 4 hours, C. difficile sent out Disposition -Maximum medical therapy per infectious disease and general surgery for now, continue to monitor inpatient. Patient has decided not to pursue surgery at this time. -Starting patient on clears MAN THOMPSON Feb 13, 2019 12:39
[2019-02-13] MEDS: POTASSIUM CHLORIDE 100 ML IVPB SCH ×2 (13:28→15:51)
[2019-02-13 14:00] VITALS: BP 125/69; PULSE 67; RESP 18
--- NOTE | 2019-02-13 15:40 | CONS ---
Assessment/Plan Assessment/Plan Hospital Course (Demo Recall) Alert, feels better complaining of frequent bowel movements somewhat watery with solid parts. No fevers overnight Microbiology: Blood culture remain negative Antimicrobials: Vanco Merrem fluconazole Physical examination: Well-developed young man who is alert in no distress head atraumatic normocephalic neck is supple chest rise symmetrical breath sounds clear heart: S1-S2 abdomen soft mild tenderness on palpation. Extremities without cyanosis Assessment: 1. Systemic inflammatory response syndrome 2. Perforated sigmoid diverticulitis 3. Diarrhea, rule out C. difficile Plan: Remains stable, on appropriate antibiotic regimen, surgery follows, will send stool for C. difficile Consultation Date/Type/Reason Admit Date/Time Feb 11, 2019 at 00:43 Initial Consult Date 02/11/19 Type of Consult id Date/Time of Note DATE: 02/13/19 TIME: 15:39 Exam/Review of Systems Exam Vitals Vital Signs Date Temp Pulse Resp B/P (MAP) Pulse Ox O2 O2 Flow FiO2 Time Delivery Rate 02/13/19 98.5 71 18 130/70 99 08:18 (90) 02/13/19 Room Air 02:25 Intake and Output 02/12/19 02/12/19 02/13/19 1515:00 23:00 07:00 IntakeIntake Total 1000 ml 1150 ml 585 ml OutputOutput Total 600 ml 400 ml BalanceBalance 400 ml 750 ml 585 ml Results Result Diagram: 02/13/19 0424 02/13/19 0424 Results 24hrs Laboratory Tests Test 02/13/19 04:24 White Blood Count 13.6 #H Red Blood Count 4.26 L Hemoglobin 11.7 L Hematocrit 35.9 L Mean Corpuscular Volume 84.3 Mean Corpuscular Hemoglobin 27.5 L Mean Corpuscular Hemoglobin Concent 32.6 Red Cell Distribution Width 13.6 Platelet Count 315 Mean Platelet Volume 10.6 H Immature Granulocytes % 0.500 H Neutrophils % 83.4 H Lymphocytes % 8.2 L Monocytes % 7.1 Eosinophils % 0.5 Basophils % 0.3 Nucleated Red Blood Cells % 0.0 Immature Granulocytes # 0.070 H Neutrophils # 11.3 H Lymphocytes # 1.1 Monocytes # 1.0 H Eosinophils # 0.1 Basophils # 0.0 Nucleated Red Blood Cells # 0.0 Sodium Level 143 Potassium Level 3.4 L Chloride Level 109 Carbon Dioxide Level 26 Anion Gap 8 Blood Urea Nitrogen 9 Creatinine 0.67 Est Glomerular Filtrat Rate mL/min > 60 Glucose Level 95 Calcium Level 9.1 Phosphorus Level 2.6 Magnesium Level 2.2 Medications Medication Current Medications Dextrose/Sodium Chloride 1,000 ml @ 125 mls/hr Q8H IV Last administered on 02/13/19 10:10; Admin Dose 125 MLS/HR; Start 02/11/19 at 01:51 IV Flush (NS 3 ml) 3 ml PER PROTOCOL IV ; Start 02/11/19 at 02:00 Ondansetron HCl (Zofran Inj) 4 mg Q6H PRN IV NAUSEA/VOMITING Last administered on 02/12/19 06:52; Admin Dose 4 MG; Start 02/11/19 at 02:00 Morphine Sulfate (morphine) 4 mg Q4H PRN IV .SEVERE PAIN 7-10 Last administered on 02/13/19 10:50; Admin Dose 4 MG; Start 02/11/19 at 02:00 Famotidine (Pepcid Iv) 20 mg Q12 IV Last administered on 02/13/19 09:07; Admin Dose 20 MG; Start 02/11/19 at 09:00 Meropenem/Sodium Chloride 50 ml @ 100 mls/hr Q8 IVPB Last administered on 02/13/19 14:19; Admin Dose 100 MLS/HR; Start 02/11/19 at 14:00 Vancomycin HCl (Vanco Iv Per Pharmacy) VANCOMYCIN PER PHARMACY PER PROTOCOL XX ; Start 02/12/19 at 16:00 Vancomycin HCl 1.25 gm/Sodium Chloride 250 ml @ 83.333 mls/ hr Q8H IVPB Last administered on 02/13/19at 10:10; Admin Dose 83.333 MLS/HR; Start 02/13/19 at 02:00 Fluconazole/ Sodium Chloride 50 ml @ 50 mls/hr Q24H IVPB Last administered on 02/12/19at 23:03; Admin Dose 50 MLS/HR; Start 02/12/19 at 20:00 Miscellaneous Information (*Rx Drug Level Order Reminder*) VANCO TROUGH @ 1,700 1700 ONCE XX ; Start 02/13/19 at 17:00; Stop 02/13/19 at 17:01 MINDA CANTRELL NP Feb 13, 2019 15:40
[2019-02-13 19:45] VITALS: BP 136/84; PULSE 71; RESP 20
[2019-02-13] MEDS: FLUCONAZOLE 100 MG/50 ML (PMX) 50 ML IVPB SCH (21:05)
[2019-02-14] MEDS: VANCOMYCIN HCL 1.75 GM in SOD CHLORIDE 0.9% 500 ML IVPB SCH ×3 (01:23→16:10)
[2019-02-14] MEDS: DEXTROSE 5%-0.45% NACL 1,000 ML IV SCH ×4 (02:00→22:30)
[2019-02-14] MEDS: morphine 2 MG INJ IV PRN ×2 (02:17→12:27)
[2019-02-14 02:25] VITALS: BP 132/77; PULSE 63; RESP 20
[2019-02-14] MEDS: MEROPENEM 1 GM/50ML(PMX) 50 ML IVPB SCH ×3 (06:20→21:44)
[2019-02-14 07:48] VITALS: BP 137/80; PULSE 72; RESP 18
[2019-02-14] MEDS: FAMOTIDINE 20 MG INJ IV SCH ×2 (08:20→20:27)
--- NOTE | 2019-02-14 11:40 | CONS ---
Assessment/Plan Assessment/Plan Hospital Course (Demo Recall) All noted, labs reviewed, wbc trending down, no fevers Microbiology: Blood culture remain negative Antimicrobials: Vanco Merrem fluconazole Physical examination: Well-developed young man who is alert in no distress head atraumatic normocephalic neck is supple chest rise symmetrical breath sounds clear heart: S1-S2 abdomen soft mild tenderness on palpation. Extremities without cyanosis Assessment: 1. Systemic inflammatory response syndrome 2. Perforated sigmoid diverticulitis 3. Diarrhea, rule out C. difficile Plan: Remains on appropriate antibiotic regimen, surgery follows, pending stool for C. difficile Consultation Date/Type/Reason Admit Date/Time Feb 11, 2019 at 00:43 Initial Consult Date 02/11/19 Type of Consult id Date/Time of Note DATE: 02/14/19 TIME: 11:40 Exam/Review of Systems Exam Vitals Vital Signs Date Temp Pulse Resp B/P (MAP) Pulse Ox O2 O2 Flow FiO2 Time Delivery Rate 02/14/19 98.4 72 18 137/80 100 07:48 (99) 02/14/19 Room Air 02:25 Intake and Output 02/13/19 02/13/19 02/14/19 1515:00 23:00 07:00 IntakeIntake Total 350 ml 975 ml 1250 ml OutputOutput Total 600 ml 600 ml BalanceBalance -250 ml 375 ml 1250 ml Results Result Diagram: 02/14/19 0423 02/14/19 0423 Results 24hrs Laboratory Tests Test 02/13/19 17:05 02/14/19 04:23 Vancomycin Level Trough 7.4 L White Blood Count 11.2 H Red Blood Count 4.34 L Hemoglobin 11.8 L Hematocrit 36.3 L Mean Corpuscular Volume 83.6 Mean Corpuscular Hemoglobin 27.2 L Mean Corpuscular Hemoglobin Concent 32.5 Red Cell Distribution Width 13.2 Platelet Count 356 Mean Platelet Volume 10.2 Immature Granulocytes % 0.500 H Neutrophils % 76.3 Lymphocytes % 13.1 L Monocytes % 8.4 Eosinophils % 1.5 Basophils % 0.2 Nucleated Red Blood Cells % 0.0 Immature Granulocytes # 0.060 H Neutrophils # 8.5 H Lymphocytes # 1.5 Monocytes # 0.9 Eosinophils # 0.2 Basophils # 0.0 Nucleated Red Blood Cells # 0.0 Sodium Level 142 Potassium Level 4.0 Chloride Level 107 Carbon Dioxide Level 27 Anion Gap 8 Blood Urea Nitrogen 10 Creatinine 0.59 L Est Glomerular Filtrat Rate mL/min > 60 Glucose Level 84 Calcium Level 8.8 Phosphorus Level 4.0 Magnesium Level 2.1 Medications Medication Current Medications Dextrose/Sodium Chloride 1,000 ml @ 125 mls/hr Q8H IV Last administered on 02/13/19 10:10; Admin Dose 125 MLS/HR; Start 02/11/19 at 01:51 IV Flush (NS 3 ml) 3 ml PER PROTOCOL IV ; Start 02/11/19 at 02:00 Ondansetron HCl (Zofran Inj) 4 mg Q6H PRN IV NAUSEA/VOMITING Last administered on 02/12/19 06:52; Admin Dose 4 MG; Start 02/11/19 at 02:00 Morphine Sulfate (morphine) 4 mg Q4H PRN IV .SEVERE PAIN 7-10 Last administered on 02/14/19 02:17; Admin Dose 4 MG; Start 02/11/19 at 02:00 Famotidine (Pepcid Iv) 20 mg Q12 IV Last administered on 02/14/19 08:20; Admin Dose 20 MG; Start 02/11/19 at 09:00 Meropenem/Sodium Chloride 50 ml @ 100 mls/hr Q8 IVPB Last administered on 02/14/19 06:20; Admin Dose 100 MLS/HR; Start 02/11/19 at 14:00 Vancomycin HCl (Vanco Iv Per Pharmacy) VANCOMYCIN PER PHARMACY PER PROTOCOL XX ; Start 02/12/19 at 16:00 Fluconazole/ Sodium Chloride 50 ml @ 50 mls/hr Q24H IVPB Last administered on 02/13/19 21:05; Admin Dose 50 MLS/HR; Start 02/12/19 at 20:00 Vancomycin HCl 1.75 gm/Sodium Chloride 500 ml @ 125 mls/hr Q8H IVPB Last administered on 02/14/19 08:23; Admin Dose 125 MLS/HR; Start 02/14/19 at 00:00 MINDA CANTRELL NP Feb 14, 2019 11:40
--- NOTE | 2019-02-14 12:20 | PN ---
Date/Time of Note Date/Time of Note DATE: 02/14/19 TIME: 12:18 Objective Vitals Vital Signs Date Temp Pulse Resp B/P (MAP) Pulse Ox O2 O2 Flow FiO2 Time Delivery Rate 02/14/19 98.4 72 18 137/80 100 07:48 (99) 02/14/19 Room Air 02:25 Intake and Output 02/13/19 02/13/19 02/14/19 1515:00 23:00 07:00 IntakeIntake Total 350 ml 975 ml 1250 ml OutputOutput Total 600 ml 600 ml BalanceBalance -250 ml 375 ml 1250 ml Results Result Diagram: 02/14/19 0423 02/14/19 0423 Medications Medications Current Medications Dextrose/Sodium Chloride 1,000 ml @ 125 mls/hr Q8H IV Last administered on 02/13/19at 10:10; Admin Dose 125 MLS/HR; Start 02/11/19 at 01:51 IV Flush (NS 3 ml) 3 ml PER PROTOCOL IV ; Start 02/11/19 at 02:00 Ondansetron HCl (Zofran Inj) 4 mg Q6H PRN IV NAUSEA/VOMITING Last administered on 02/12/19at 06:52; Admin Dose 4 MG; Start 02/11/19 at 02:00 Morphine Sulfate (morphine) 4 mg Q4H PRN IV .SEVERE PAIN 7-10 Last administered on 02/14/19at 02:17; Admin Dose 4 MG; Start 02/11/19 at 02:00 Famotidine (Pepcid Iv) 20 mg Q12 IV Last administered on 02/14/19at 08:20; Admin Dose 20 MG; Start 02/11/19 at 09:00 Meropenem/Sodium Chloride 50 ml @ 100 mls/hr Q8 IVPB Last administered on 02/14/19at 06:20; Admin Dose 100 MLS/HR; Start 02/11/19 at 14:00 Vancomycin HCl (Vanco Iv Per Pharmacy) VANCOMYCIN PER PHARMACY PER PROTOCOL XX ; Start 02/12/19 at 16:00 Fluconazole/ Sodium Chloride 50 ml @ 50 mls/hr Q24H IVPB Last administered on 02/13/19at 21:05; Admin Dose 50 MLS/HR; Start 02/12/19 at 20:00 Vancomycin HCl 1.75 gm/Sodium Chloride 500 ml @ 125 mls/hr Q8H IVPB Last administered on 02/14/19at 08:23; Admin Dose 125 MLS/HR; Start 02/14/19 at 00:00 Miscellaneous Information (*Rx Drug Level Order Reminder*) VANCO TROUGH @ 2,300 2300 ONCE XX ; Start 02/14/19 at 23:00; Stop 02/14/19 at 23:01 VTE Prophylaxis Risk score (from Ns)>0 risk: 0 SCD applied (from [facility]): No SCD contraindication: other Lines/Catheters IV Catheter Type: De Dios in Place: No Assessment/Plan Hospital Course Subjective Patient states that he had a hard bowel movement earlier, now his stomach feels drained with increased abdominal pain. Objective Physical exam General: Patient is laying in bed and answers questions appropriately Mentation: Patient is alert and oriented 4, Head: Normocephalic atraumatic Eyes: EOMI, pupils reactive to light Neck: Supple, nontender, midline Respiratory: Clear to auscultation bilaterally Cardiovascular: regular rate, no obvious murmurs Gastrointestinal: Tender to palpation, bowel sounds heard. Neurological: Moves all extremities spontaneously Skin: No new skin lesions Assessment and plan Perforated diverticulitis, microperforation per general surgery -General surgery on board, general surgeon spoke with family and patient and subsequently decided for conservative antibiotic treatment instead of surgery. -IV antibiotic per infectious disease -ID on board -Cultures -Pain control -Per surgery, okay to start on clears, will decide if patient needs CT or not due to new pain Sepsis -IV fluid -Blood cultures -IV antibiotic -ID consulted History of bilateral kidney stone -Monitor, not acute issue at this time Diarrhea -C. difficile negative -Resolving Disposition -Maximum medical therapy per infectious disease and general surgery for now, continue to monitor inpatient. Patient has decided not to pursue surgery at this time. -We will speak with general surgery regarding repeat CT -N.p.o. as abdominal pain is increased MAN THOMPSON Feb 14, 2019 12:20
[2019-02-14] MEDS ORDERED: BARIUM SULF 2% 450 ML BTL (BERRY SMOOTHIE) PO ONE (13:00)
[2019-02-14 14:23] VITALS: BP 139/84; PULSE 75; RESP 18
[2019-02-14] MEDS ORDERED: IOHEXOL 300MG/ML 150 ML BTL ONE (18:13)
[2019-02-14] MEDS ORDERED: SOD CHLORIDE 0.9% 100 ML ONE (18:13)
[2019-02-14 19:40] VITALS: BP 138/90; PULSE 70; RESP 18
[2019-02-14] MEDS: FLUCONAZOLE 100 MG/50 ML (PMX) 50 ML IVPB SCH (20:27)
--- NOTE | 2019-02-14 20:34 | PN ---
Date/Time of Note Date/Time of Note DATE: 02/14/19 TIME: 20:25 Assessment/Plan VTE Prophylaxis VTE Prophylaxis Intervention: ambulation Lines/Catheters Central line still needed: No De Dios in Place (from Nrsg): No Assessment/Plan Chief Complaint/Hosp Course 28 year old with 1 wk of intermittent pain admitted with microperforation - overnight pt has been stable and decision was made by Dr. Gillis to continue monitor the patient. Today pain has improved and pt has had a bowel movement, Fever resolved/. He has + BS , Bowel function -- Follow up CT performed - The CT images reviewed with the radiologist Marquis Lee, Discussion with the radiologist - stated that free air has resolved the pelvic abscess is worst but the psoas abscess is improved. Plan: 1. Consult Radiology for drainage of pelvic Abscess 2. Continue antibiotics 3. Start full liquid diet 4. C.Diff pending -- Subjective 24 Hr Interval Summary Clinically pt is feeling better progressively over the past 2 days, follow up CT was ordered Stat in am - order was completed now and I was notified to review CT. The CT images reviewed with the radiologist Marquis Lee, Discussion with the radiologist - stated that free air has resolved the pelvic abscess is worst but the psoas abscess is improved. Pt Feels better now - initially in am he felt worst secondary to gas pain and bowel movement - that pain resolved after going to the bathroom. He is now feeling better. Constitutional: no complaints, improved, ambulates, BM, flatus Feeding: clear Pain Control: well controlled Exam/Review of Systems Vital Signs Vitals Vital Signs Date Temp Pulse Resp B/P (MAP) Pulse Ox O2 O2 Flow FiO2 Time Delivery Rate 02/14/19 98.9 70 18 138/90 100 19:40 (106) 02/14/19 Room Air 02:25 Intake and Output 02/13/19 02/13/19 02/14/19 1414:59 22:59 06:59 IntakeIntake Total 350 ml 975 ml 1250 ml OutputOutput Total 600 ml 600 ml BalanceBalance -250 ml 375 ml 1250 ml Exam Constitutional: alert, oriented, well developed Psych: no complaints Head: No normocephalic, No atraumatic, No lacerations, No hematomas, No other Eyes: No nl conjunctiva, No EOMI, No nl lids, No nl sclera, No PERRL, No icteric, No fundi, disc, No other ENMT: No nl external ears & nose, No nl lips & teeth, No nl nasal mucosa & septum, No mucosa pink and moist, No intubated, No tympanic membranes, No other Neck: No supple, No non-tender, No jvd, No bruits, No masses, No thyromegaly, No nuchal rigidity, No other Respiratory: No clear to auscultation, No normal air movement, No congested cough, No crackles/rales, No diminished breath sounds, No intercostal retraction, No labored breathing, No respirations, No tactile fremitus, No wheezing, No other Cardiovascular: No regular rate and rhythm, No nl pulses, No bruits, No diastolic murmur, No edema, No gallop, No irregular rhythm, No jugular venous distention (JVD), No murmurs/extra sounds, No rub, No systolic murmur, No S3, No S4, No other Gastrointestinal: soft, bowel sounds (present ), other (Non tender ) Musculoskeletal: No nl extremities to inspection, No nl gait and stance, No giacomo nt tenderness, No muscle tone, No muscle weakness, No range of motion, No spine non-tender, No swelling, No other Extremities: No normal pulses, No calf tenderness, No cyanosis, No clubbing, No edema, No pitting pedal edema, No palpable cord, No tenderness, No other Neurological: No TRUCK DRIVER FLATBED II-XII intact, No nl mental status, No nl speech, No nl strength, No confused, No DTR's symmetric, No focal weakness, No lethargic, No numbness, No reflexes, No unresponsive, No other Skin: No nl turgor, No rash or lesions, No diaphoresis, No ecchymosis, No laceration, No puncture, No other Lymph: No nl lymph nodes, No enlarged, No nontender, No other Results Result Diagram: 02/14/19 1302 02/14/19 0423 RANJITH RICE MD Feb 14, 2019 20:34
[2019-02-15] MEDS: VANCOMYCIN HCL 1.75 GM in SOD CHLORIDE 0.9% 500 ML IVPB SCH ×3 (01:06→16:14)
[2019-02-15 03:06] VITALS: BP 139/87; PULSE 71; RESP 18
[2019-02-15] MEDS: MEROPENEM 1 GM/50ML(PMX) 50 ML IVPB SCH ×3 (06:26→21:34)
[2019-02-15 07:54] VITALS: BP 143/78; PULSE 64; RESP 17
[2019-02-15] MEDS: FAMOTIDINE 20 MG INJ IV SCH ×2 (08:36→20:32)
--- NOTE | 2019-02-15 10:52 | CONS ---
Assessment/Plan Assessment/Plan Hospital Course (Demo Recall) ID PROGRESS NOTE CURRENT ABX: DAY # => Vanco IV + Merrem + Diflucan 24H INTERVAL SUMMARY * No fever,WBC normalized, feeling better, taking clears, still reports pain w/defecation DIAGNOSTIC IMAGING * 02/14/19 CT A-P reviewed MICRO/OTHER * 02/13/19 C.Diff (-) * 02/11/19 BCx (-) PHYSICAL EXAMINATION: GENERAL: VSS, NAD HEENT: AT, NC, anicteric, NECK: Supple, CHEST: Equal chest rise bilaterally - without dyspnea on observation HEART: Pulse RRR ABDOMEN: Soft, passing gas EXTREMITIES: Warm, dry SKIN: No rash, no diaphoresis ID ASSESSMENT 28 yo M admit with: 1. Sepsis on admission w/fevers >101.+, leukocytosis, tachycardia => RESOLVED 2. Diverticulitis w/micro perf => (+) Abscess Psoas muscle 3. Diarrhea (-)MRSA Nares ABX ALLERGIES: KNDA INVASIVES: PIV CURRENT ABX: DAY # => Vanco IV + Zosyn ID RECOMMENDATIONS/PLAN: 1. Continue current ABX over the weekend while inpatient status. . Consultation Date/Type/Reason Admit Date/Time Feb 11, 2019 at 00:43 Initial Consult Date 02/11/19 Date/Time of Note DATE: 02/15/19 TIME: 10:46 Exam/Review of Systems Exam Vitals Vital Signs Date Temp Pulse Resp B/P (MAP) Pulse Ox O2 O2 Flow FiO2 Time Delivery Rate 02/15/19 98.2 64 17 143/78 96 07:54 (99) 02/14/19 Room Air 02:25 Intake and Output 02/14/19 02/14/19 02/15/19 1515:00 23:00 07:00 IntakeIntake Total 550 ml 1537 ml 862 ml BalanceBalance 550 ml 1537 ml 862 ml Results Result Diagram: 02/15/19 0455 02/15/19 0455 Results 24hrs Laboratory Tests Test 02/14/19 13:02 02/14/19 23:41 02/15/19 04:55 Platelet Count 386 426 H Prothrombin Time 14.7 Prothrombin Time Ratio 1.1 INR International Normalized Ratio 1.14 Activated Partial Thromboplast Time 42.9 H Thrombin Time 13.8 Vancomycin Level Trough 12.5 White Blood Count 9.3 Red Blood Count 4.60 L Hemoglobin 12.6 L Hematocrit 38.1 L Mean Corpuscular Volume 82.8 Mean Corpuscular Hemoglobin 27.4 L Mean Corpuscular Hemoglobin Concent 33.1 Red Cell Distribution Width 13.2 Mean Platelet Volume 10.2 Immature Granulocytes % 0.300 Neutrophils % 77.0 Lymphocytes % 11.8 L Monocytes % 8.5 Eosinophils % 2.1 Basophils % 0.3 Nucleated Red Blood Cells % 0.0 Immature Granulocytes # 0.030 Neutrophils # 7.2 Lymphocytes # 1.1 Monocytes # 0.8 Eosinophils # 0.2 Basophils # 0.0 Nucleated Red Blood Cells # 0.0 Sodium Level 143 Potassium Level 3.6 Chloride Level 106 Carbon Dioxide Level 27 Anion Gap 10 Blood Urea Nitrogen 8 Creatinine 0.51 L Est Glomerular Filtrat Rate mL/min > 60 Glucose Level 87 Calcium Level 9.2 Phosphorus Level 4.1 Magnesium Level 2.1 Medications Medication Current Medications Dextrose/Sodium Chloride 1,000 ml @ 125 mls/hr Q8H IV Last administered on 02/14/19at 22:30; Admin Dose 125 MLS/HR; Start 02/11/19 at 01:51 IV Flush (NS 3 ml) 3 ml PER PROTOCOL IV ; Start 02/11/19 at 02:00 Ondansetron HCl (Zofran Inj) 4 mg Q6H PRN IV NAUSEA/VOMITING Last administered on 02/12/19at 06:52; Admin Dose 4 MG; Start 02/11/19 at 02:00 Morphine Sulfate (morphine) 4 mg Q4H PRN IV .SEVERE PAIN 7-10 Last administered on 02/14/19at 12:27; Admin Dose 4 MG; Start 02/11/19 at 02:00 Famotidine (Pepcid Iv) 20 mg Q12 IV Last administered on 02/15/19at 08:36; Admin Dose 20 MG; Start 02/11/19 at 09:00 Meropenem/Sodium Chloride 50 ml @ 100 mls/hr Q8 IVPB Last administered on 02/15/19at 06:26; Admin Dose 100 MLS/HR; Start 02/11/19 at 14:00 Vancomycin HCl (Vanco Iv Per Pharmacy) VANCOMYCIN PER PHARMACY PER PROTOCOL XX ; Start 02/12/19 at 16:00 Fluconazole/ Sodium Chloride 50 ml @ 50 mls/hr Q24H IVPB Last administered on 02/14/19at 20:27; Admin Dose 50 MLS/HR; Start 02/12/19 at 20:00 Vancomycin HCl 1.75 gm/Sodium Chloride 500 ml @ 125 mls/hr Q8H IVPB Last administered on 02/15/19at 08:36; Admin Dose 125 MLS/HR; Start 02/14/19 at 00:00 DANIE GODOY MEDICAL RECEPTIONIST BILLER Feb 15, 2019 10:52
--- NOTE | 2019-02-15 12:37 | PN ---
Date/Time of Note Date/Time of Note DATE: 02/15/19 TIME: 12:36 Objective Vitals Vital Signs Date Temp Pulse Resp B/P (MAP) Pulse Ox O2 O2 Flow FiO2 Time Delivery Rate 02/15/19 98.2 64 17 143/78 96 07:54 (99) 02/14/19 Room Air 02:25 Intake and Output 02/14/19 02/14/19 02/15/19 1515:00 23:00 07:00 IntakeIntake Total 550 ml 1537 ml 862 ml BalanceBalance 550 ml 1537 ml 862 ml Results Result Diagram: 02/15/19 0455 02/15/19 0455 Medications Medications Current Medications Dextrose/Sodium Chloride 1,000 ml @ 125 mls/hr Q8H IV Last administered on 02/14/19at 22:30; Admin Dose 125 MLS/HR; Start 02/11/19 at 01:51 IV Flush (NS 3 ml) 3 ml PER PROTOCOL IV ; Start 02/11/19 at 02:00 Ondansetron HCl (Zofran Inj) 4 mg Q6H PRN IV NAUSEA/VOMITING Last administered on 02/12/19at 06:52; Admin Dose 4 MG; Start 02/11/19 at 02:00 Morphine Sulfate (morphine) 4 mg Q4H PRN IV .SEVERE PAIN 7-10 Last administered on 02/14/19at 12:27; Admin Dose 4 MG; Start 02/11/19 at 02:00 Famotidine (Pepcid Iv) 20 mg Q12 IV Last administered on 02/15/19at 08:36; Admin Dose 20 MG; Start 02/11/19 at 09:00 Meropenem/Sodium Chloride 50 ml @ 100 mls/hr Q8 IVPB Last administered on 02/15/19at 06:26; Admin Dose 100 MLS/HR; Start 02/11/19 at 14:00 Vancomycin HCl (Vanco Iv Per Pharmacy) VANCOMYCIN PER PHARMACY PER PROTOCOL XX ; Start 02/12/19 at 16:00 Fluconazole/ Sodium Chloride 50 ml @ 50 mls/hr Q24H IVPB Last administered on 02/14/19at 20:27; Admin Dose 50 MLS/HR; Start 02/12/19 at 20:00 Vancomycin HCl 1.75 gm/Sodium Chloride 500 ml @ 125 mls/hr Q8H IVPB Last administered on 02/15/19at 08:36; Admin Dose 125 MLS/HR; Start 02/14/19 at 00:00 VTE Prophylaxis Risk score (from Ns)>0 risk: 1 SCD applied (from Ns): Yes Lines/Catheters IV Catheter Type: De Dios in Place: No Assessment/Plan Hospital Course Subjective Patient's abdominal pain continues to improve Objective Physical exam General: Patient is laying in bed and answers questions appropriately Mentation: Patient is alert and oriented 4, Head: Normocephalic atraumatic Eyes: EOMI, pupils reactive to light Neck: Supple, nontender, midline Respiratory: Clear to auscultation bilaterally Cardiovascular: regular rate, no obvious murmurs Gastrointestinal: Tender to palpation, bowel sounds heard. Neurological: Moves all extremities spontaneously Skin: No new skin lesions Assessment and plan Perforated diverticulitis, microperforation per general surgery -General surgery on board, general surgeon spoke with family and patient and subsequently decided for conservative antibiotic treatment instead of surgery. -IV antibiotic per infectious disease -ID on board -Cultures -Pain control -CT showing abscess, IR consulted however radiologist ad operations coordinator today does not feel like he could drain it, will await another radiologist opinion tomorrow. Sepsis, resolving -IV fluid -Blood cultures -IV antibiotic -ID consulted History of bilateral kidney stone -Monitor, not acute issue at this time Diarrhea -C. difficile negative -Resolved Disposition -Maximum medical therapy per infectious disease and general surgery for now, continue to monitor inpatient. Patient has decided not to pursue surgery at this time. -We will speak to radiologist tomorrow to see if he feels he can drain the abscess, radiologist today does not feel he is technically able to drain. -MAN Noriega Feb 15, 2019 12:37
[2019-02-15 14:35] VITALS: BP 141/81; PULSE 68; RESP 19
[2019-02-15] MEDS: DEXTROSE 5%-0.45% NACL 1,000 ML IV SCH ×2 (14:57→17:51)
[2019-02-15 19:10] VITALS: BP 150/58; PULSE 72; RESP 20
[2019-02-15] MEDS: FLUCONAZOLE 100 MG/50 ML (PMX) 50 ML IVPB SCH (20:32)
[2019-02-16] MEDS: VANCOMYCIN HCL 1.75 GM in SOD CHLORIDE 0.9% 500 ML IVPB SCH ×3 (00:32→16:52)
[2019-02-16 02:06] VITALS: BP 131/90; PULSE 70; RESP 20
[2019-02-16] MEDS: DEXTROSE 5%-0.45% NACL 1,000 ML IV SCH ×3 (05:34→17:26)
[2019-02-16] MEDS: MEROPENEM 1 GM/50ML(PMX) 50 ML IVPB SCH ×3 (05:34→23:46)
[2019-02-16 07:27] VITALS: BP 132/81; PULSE 67; RESP 16
[2019-02-16] MEDS: FAMOTIDINE 20 MG INJ IV SCH ×2 (09:27→21:46)
--- NOTE | 2019-02-16 10:53 | CONS ---
Assessment/Plan Assessment/Plan Hospital Course (Demo Recall) ID PROGRESS NOTE CURRENT ABX: DAY # => Vanco IV + Merrem + Diflucan 24H INTERVAL SUMMARY * Low grade temps today --- VSS, NAD, resting comfortably 02/16/1944102/16/19441 DIAGNOSTIC IMAGING * 02/14/19 CT A-P reviewed MICRO/OTHER * 02/13/19 C.Diff (-) * 02/11/19 BCx (-) PHYSICAL EXAMINATION: GENERAL: VSS, NAD HEENT: AT, NC, anicteric, NECK: Supple, CHEST: Equal chest rise bilaterally - without dyspnea on observation HEART: Pulse RRR ABDOMEN: Soft, passing gas EXTREMITIES: Warm, dry SKIN: No rash, no diaphoresis ID ASSESSMENT 28 yo M admit with: 1. Sepsis on admission w/fevers >101.+, leukocytosis, tachycardia => RESOLVED 2. Diverticulitis w/micro perf => (+) Abscess Psoas muscle 3. Diarrhea (-)MRSA Nares ABX ALLERGIES: KNDA INVASIVES: PIV CURRENT ABX: DAY # => Vanco IV + Zosyn ID RECOMMENDATIONS/PLAN: 1. Continue current ABX over the weekend while inpatient status. 2. F/U CT results if/when available . Consultation Date/Type/Reason Admit Date/Time Feb 11, 2019 at 00:43 Initial Consult Date 02/11/19 Date/Time of Note DATE: 02/16/19 TIME: 10:52 Exam/Review of Systems Exam Vitals Vital Signs Date Temp Pulse Resp B/P (MAP) Pulse Ox O2 O2 Flow FiO2 Time Delivery Rate 02/16/19 99.2 67 16 132/81 100 Room Air 07:27 (98) Intake and Output 02/15/19 02/15/19 02/16/19 1515:00 23:00 07:00 IntakeIntake Total 1188 ml 1025 ml 1475 ml BalanceBalance 1188 ml 1025 ml 1475 ml Results Result Diagram: 02/16/1944102/16/19441 Results 24hrs Laboratory Tests Test 02/16/19 04:42 White Blood Count 9.6 Red Blood Count 4.69 L Hemoglobin 12.8 L Hematocrit 38.7 L Mean Corpuscular Volume 82.5 Mean Corpuscular Hemoglobin 27.3 L Mean Corpuscular Hemoglobin Concent 33.1 Red Cell Distribution Width 13.0 Platelet Count 446 H Mean Platelet Volume 10.1 Immature Granulocytes % 0.600 H Neutrophils % 74.9 Lymphocytes % 12.5 L Monocytes % 9.4 Eosinophils % 2.2 Basophils % 0.4 Nucleated Red Blood Cells % 0.0 Immature Granulocytes # 0.060 H Neutrophils # 7.2 Lymphocytes # 1.2 Monocytes # 0.9 Eosinophils # 0.2 Basophils # 0.0 Nucleated Red Blood Cells # 0.0 Sodium Level 144 Potassium Level 3.7 Chloride Level 106 Carbon Dioxide Level 27 Anion Gap 11 Blood Urea Nitrogen 8 Creatinine 0.55 L Est Glomerular Filtrat Rate mL/min > 60 Glucose Level 88 Calcium Level 9.1 Phosphorus Level 3.9 Magnesium Level 2.2 Medications Medication Current Medications Dextrose/Sodium Chloride 1,000 ml @ 125 mls/hr Q8H IV Last administered on 02/16/19at 05:34; Admin Dose 125 MLS/HR; Start 02/11/19 at 01:51 IV Flush (NS 3 ml) 3 ml PER PROTOCOL IV ; Start 02/11/19 at 02:00 Ondansetron HCl (Zofran Inj) 4 mg Q6H PRN IV NAUSEA/VOMITING Last administered on 02/12/19at 06:52; Admin Dose 4 MG; Start 02/11/19 at 02:00 Morphine Sulfate (morphine) 4 mg Q4H PRN IV .SEVERE PAIN 7-10 Last administered on 02/14/19at 12:27; Admin Dose 4 MG; Start 02/11/19 at 02:00 Famotidine (Pepcid Iv) 20 mg Q12 IV Last administered on 02/16/19at 09:27; Admin Dose 20 MG; Start 02/11/19 at 09:00 Meropenem/Sodium Chloride 50 ml @ 100 mls/hr Q8 IVPB Last administered on 02/16/19at 05:34; Admin Dose 100 MLS/HR; Start 02/11/19 at 14:00 Vancomycin HCl (Vanco Iv Per Pharmacy) VANCOMYCIN PER PHARMACY PER PROTOCOL XX ; Start 02/12/19 at 16:00 Fluconazole/ Sodium Chloride 50 ml @ 50 mls/hr Q24H IVPB Last administered on 02/15/19at 20:32; Admin Dose 50 MLS/HR; Start 02/12/19 at 20:00 Vancomycin HCl 1.75 gm/Sodium Chloride 500 ml @ 125 mls/hr Q8H IVPB Last adm inistered on 02/16/19at 09:10; Admin Dose 125 MLS/HR; Start 02/14/19 at 00:00 DANIE GODOY NP Feb 16, 2019 10:53
--- NOTE | 2019-02-16 11:24 | PN ---
Date/Time of Note Date/Time of Note DATE: 02/16/19 TIME: 11:22 Objective Vitals Vital Signs Date Temp Pulse Resp B/P (MAP) Pulse Ox O2 O2 Flow FiO2 Time Delivery Rate 02/16/19 99.2 67 16 132/81 100 Room Air 07:27 (98) Intake and Output 02/15/19 02/15/19 02/16/19 1515:00 23:00 07:00 IntakeIntake Total 1188 ml 1025 ml 1475 ml BalanceBalance 1188 ml 1025 ml 1475 ml Results Result Diagram: 02/16/19 0442 02/16/19 0442 Medications Medications Current Medications Dextrose/Sodium Chloride 1,000 ml @ 125 mls/hr Q8H IV Last administered on 02/16/19 05:34; Admin Dose 125 MLS/HR; Start 02/11/19 at 01:51 IV Flush (NS 3 ml) 3 ml PER PROTOCOL IV ; Start 02/11/19 at 02:00 Ondansetron HCl (Zofran Inj) 4 mg Q6H PRN IV NAUSEA/VOMITING Last administered on 02/12/19at 06:52; Admin Dose 4 MG; Start 02/11/19 at 02:00 Morphine Sulfate (morphine) 4 mg Q4H PRN IV .SEVERE PAIN 7-10 Last administered on 02/14/19 12:27; Admin Dose 4 MG; Start 02/11/19 at 02:00 Famotidine (Pepcid Iv) 20 mg Q12 IV Last administered on 02/16/19 09:27; Admin Dose 20 MG; Start 02/11/19 at 09:00 Meropenem/Sodium Chloride 50 ml @ 100 mls/hr Q8 IVPB Last administered on 02/16/19 05:34; Admin Dose 100 MLS/HR; Start 02/11/19 at 14:00 Vancomycin HCl (Vanco Iv Per Pharmacy) VANCOMYCIN PER PHARMACY PER PROTOCOL XX ; Start 02/12/19 at 16:00 Fluconazole/ Sodium Chloride 50 ml @ 50 mls/hr Q24H IVPB Last administered on 02/15/19at 20:32; Admin Dose 50 MLS/HR; Start 02/12/19 at 20:00 Vancomycin HCl 1.75 gm/Sodium Chloride 500 ml @ 125 mls/hr Q8H IVPB Last administered on 4/28/19at 09:10; Admin Dose 125 MLS/HR; Start 02/14/19 at 00:00 VTE Prophylaxis Risk score (from Ns)>0 risk: 0 SCD applied (from Ns): No SCD contraindication: other Lines/Catheters IV Catheter Type: De Dios in Place: No Assessment/Plan Hospital Course Subjective Patient's abdominal pain continues to improve Objective Physical exam General: Patient is laying in bed and answers questions appropriately Mentation: Patient is alert and oriented 4, Head: Normocephalic atraumatic Eyes: EOMI, pupils reactive to light Neck: Supple, nontender, midline Respiratory: Clear to auscultation bilaterally Cardiovascular: regular rate, no obvious murmurs Gastrointestinal: Tender to palpation, bowel sounds heard. Neurological: Moves all extremities spontaneously Skin: No new skin lesions Assessment and plan Perforated diverticulitis, microperforation per general surgery -General surgery on board, general surgeon spoke with family and patient and subsequently decided for conservative antibiotic treatment instead of surgery, but may need surgery due to abscess now. 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 too small, recommends surgery. Will discuss with surgeon. Sepsis, resolving -IV fluid -Blood cultures -IV antibiotic -ID consulted History of bilateral kidney stone -Monitor, not acute issue at this time Diarrhea -C. difficile negative -intermittent. Disposition -may need surgery now that IR can not drain abscess. Will speak with surgeon. -MAN Noriega Feb 16, 2019 11:23
[2019-02-16 15:13] VITALS: BP 155/78; PULSE 75; RESP 16
[2019-02-16 19:21] VITALS: BP 154/91; PULSE 71; RESP 20
[2019-02-16] MEDS ORDERED: FLUCONAZOLE 200 MG (PMX) 100 ML IVPB SCH (20:00)
[2019-02-17] MEDS: VANCOMYCIN HCL 1.75 GM in SOD CHLORIDE 0.9% 500 ML IVPB SCH ×3 (00:44→16:57)
[2019-02-17] MEDS: DEXTROSE 5%-0.45% NACL 1,000 ML IV SCH ×2 (01:51→09:51)
[2019-02-17 02:01] VITALS: BP 150/75; PULSE 58; RESP 18
[2019-02-17] MEDS: MEROPENEM 1 GM/50ML(PMX) 50 ML IVPB SCH ×3 (06:13→22:51)
[2019-02-17 07:27] VITALS: BP 145/72; PULSE 60; RESP 18
[2019-02-17] MEDS: FAMOTIDINE 20 MG INJ IV SCH ×2 (08:38→21:42)
[2019-02-17 09:24] VITALS: BP 152/78; PULSE 59; RESP 18
--- NOTE | 2019-02-17 10:42 | PN ---
Date/Time of Note Date/Time of Note DATE: 02/17/19 TIME: 10:35 Assessment/Plan VTE Prophylaxis Risk score (from Ns)>0 risk: 0 SCD applied (from Ns): No SCD contraindicated: low risk/ambulating Pharmacological prophylaxis: NA/contraindicated Pharm contraindication: low risk/ambulating Lines/Catheters [facility] (from [facility]): Peripheral IV Urinary Cath still in place: No Assessment/Plan Assessment/Plan 1. Acute microperforated diverticulitis with abscess - Gen surgery on board and appreciate recommendations. Will continue IV anti biotics and repeat CT scan in a few days to check size of abscess since too small to drain via IR - ID on board and appreciate recommendations - blood cultures negative 2. Sepsis secondary to #1 - resolved - remains afebrile with nl WBC 3. Diarrhea - stable - cdiff neg 4. Disposition - Will continue conservative treatment for now and resume full diet. Per surgery, will repeat CT scan in a few days to reassess abscess size Result Diagram: 02/17/19 0437 02/17/19 0437 Results 24hrs Laboratory Tests Test 02/17/19 04:37 White Blood Count 8.8 Red Blood Count 4.75 Hemoglobin 13.0 L Hematocrit 39.5 L Mean Corpuscular Volume 83.2 Mean Corpuscular Hemoglobin 27.4 L Mean Corpuscular Hemoglobin Concent 32.9 Red Cell Distribution Width 12.9 Platelet Count 491 H Mean Platelet Volume 10.0 Immature Granulocytes % 0.600 H Neutrophils % 67.9 Lymphocytes % 17.6 Monocytes % 10.2 Eosinophils % 3.1 Basophils % 0.6 Nucleated Red Blood Cells % 0.0 Immature Granulocytes # 0.050 H Neutrophils # 6.0 Lymphocytes # 1.6 Monocytes # 0.9 Eosinophils # 0.3 Basophils # 0.1 Nucleated Red Blood Cells # 0.0 Sodium Level 144 Potassium Level 4.3 Chloride Level 107 Carbon Dioxide Level 26 Anion Gap 11 Blood Urea Nitrogen 8 Creatinine 0.60 L Est Glomerular Filtrat Rate mL/min > 60 Glucose Level 82 Calcium Level 9.6 Phosphorus Level 4.2 Magnesium Level 2.2 Subjective 24 Hr Interval Summary Free Text/Dictation Patient denies any acute issues and abdominal pain has improved. Currently NPO given IR unable to drain abscess. No acute overnight events. Exam/Review of Systems Exam Vitals Vital Signs Date Temp Pulse Resp B/P (MAP) Pulse Ox O2 O2 Flow FiO2 Time Delivery Rate 02/17/19 98.6 59 18 152/78 100 09:24 (102) 02/17/19 Room Air 02:01 Intake and Output 02/16/19 02/16/19 02/17/19 1515:00 23:00 07:00 IntakeIntake Total 550 ml 1000 ml 700 ml BalanceBalance 550 ml 1000 ml 700 ml Exam General: Patient is laying in bed and answers questions appropriately Neck: Supple Respiratory: Clear to auscultation bilaterally. no wheezing or rhonchi Cardiovascular: S1, S2, regular rate and rhythm, no obvious murmurs Gastrointestinal: soft, nontender to palpation, nondistended, bowel sounds heard. Neurological: Moves all extremities spontaneously Skin: No new skin lesions Results Results 24hrs Laboratory Tests Test 02/17/19 04:37 White Blood Count 8.8 Red Blood Count 4.75 Hemoglobin 13.0 L Hematocrit 39.5 L Mean Corpuscular Volume 83.2 Mean Corpuscular Hemoglobin 27.4 L Mean Corpuscular Hemoglobin Concent 32.9 Red Cell Distribution Width 12.9 Platelet Count 491 H Mean Platelet Volume 10.0 Immature Granulocytes % 0.600 H Neutrophils % 67.9 Lymphocytes % 17.6 Monocytes % 10.2 Eosinophils % 3.1 Basophils % 0.6 Nucleated Red Blood Cells % 0.0 Immature Granulocytes # 0.050 H Neutrophils # 6.0 Lymphocytes # 1.6 Monocytes # 0.9 Eosinophils # 0.3 Basophils # 0.1 Nucleated Red Blood Cells # 0.0 Sodium Level 144 Potassium Level 4.3 Chloride Level 107 Carbon Dioxide Level 26 Anion Gap 11 Blood Urea Nitrogen 8 Creatinine 0.60 L Est Glomerular Filtrat Rate mL/min > 60 Glucose Level 82 Calcium Level 9.6 Phosphorus Level 4.2 Magnesium Level 2.2 Medications Medication Current Medications Dextrose/Sodium Chloride 1,000 ml @ 125 mls/hr Q8H IV Last administered on 02/16/19at 05:34; Admin Dose 125 MLS/HR; Start 02/11/19 at 01:51 IV Flush (NS 3 ml) 3 ml PER PROTOCOL IV ; Start 02/11/19 at 02:00 Ondansetron HCl (Zofran Inj) 4 mg Q6H PRN IV NAUSEA/VOMITING Last administered on 02/12/19at 06:52; Admin Dose 4 MG; Start 02/11/19 at 02:00 Morphine Sulfate (morphine) 4 mg Q4H PRN IV .SEVERE PAIN 7-10 Last administered on 02/14/19at 12:27; Admin Dose 4 MG; Start 02/11/19 at 02:00 Famotidine (Pepcid Iv) 20 mg Q12 IV Last administered on 02/17/19 08:38; Admin Dose 20 MG; Start 02/11/19 at 09:00 Meropenem/Sodium Chloride 50 ml @ 100 mls/hr Q8 IVPB Last administered on 02/17/19 06:13; Admin Dose 100 MLS/HR; Start 02/11/19 at 14:00 Vancomycin HCl (Vanco Iv Per Pharmacy) VANCOMYCIN PER PHARMACY PER PROTOCOL XX ; Start 02/12/19 at 16:00 Vancomycin HCl 1.75 gm/Sodium Chloride 500 ml @ 125 mls/hr Q8H IVPB Last administered on 02/17/19 08:38; Admin Dose 125 MLS/HR; Start 02/14/19 at 00:00 Fluconazole 100 ml @ 100 mls/hr Q24H IVPB ; Start 02/17/19 at 20:00 DELFINO BULLOCK MD Feb 17, 2019 10:42
--- NOTE | 2019-02-17 14:23 | CONS ---
Assessment/Plan Assessment/Plan Hospital Course (Demo Recall) Alert looks comfortable no fevers pain WBC 8.8 neutrophils 67.9 BUN [address] abdomen and pelvis 3 days ago revealed redemonstrated perforated mid distal sigmoid diverticulitis with abscesses. Please see full reportMicrobiology: Blood culture remain negative Antimicrobials: Vanco Merrem fluconazole Physical examination: Well-developed young man who is alert in no distress head atraumatic normocephalic neck is supple chest rise symmetrical breath sounds clear heart: S1-S2 abdomen soft mild tenderness on palpation. Extremities without cyanosis Assessment: 1. Systemic inflammatory response syndrome 2. Perforated sigmoid diverticulitis 3. Diarrhea==> neg C. difficile Plan: Stable, on appropriate antibiotic regimen, f/u surgical rec-s ?CT guided abscess drainage Consultation Date/Type/Reason Admit Date/Time Feb 11, 2019 at 00:43 Initial Consult Date 02/11/19 Type of Consult id Date/Time of Note DATE: 02/17/19 TIME: 14:22 Exam/Review of Systems Exam Vitals Vital Signs Date Temp Pulse Resp B/P (MAP) Pulse Ox O2 O2 Flow FiO2 Time Delivery Rate 02/17/19 98.6 59 18 152/78 100 09:24 (102) 02/17/19 Room Air 02:01 Intake and Output 02/16/19 02/16/19 02/17/19 1515:00 23:00 07:00 IntakeIntake Total 550 ml 1000 ml 700 ml BalanceBalance 550 ml 1000 ml 700 ml Results Result Diagram: 02/17/19 0437 02/17/19 0437 Results 24hrs Laboratory Tests Test 02/17/19 04:37 White Blood Count 8.8 Red Blood Count 4.75 Hemoglobin 13.0 L Hematocrit 39.5 L Mean Corpuscular Volume 83.2 Mean Corpuscular Hemoglobin 27.4 L Mean Corpuscular Hemoglobin Concent 32.9 Red Cell Distribution Width 12.9 Platelet Count 491 H Mean Platelet Volume 10.0 Immature Granulocytes % 0.600 H Neutrophils % 67.9 Lymphocytes % 17.6 Monocytes % 10.2 Eosinophils % 3.1 Basophils % 0.6 Nucleated Red Blood Cells % 0.0 Immature Granulocytes # 0.050 H Neutrophils # 6.0 Lymphocytes # 1.6 Monocytes # 0.9 Eosinophils # 0.3 Basophils # 0.1 Nucleated Red Blood Cells # 0.0 Sodium Level 144 Potassium Level 4.3 Chloride Level 107 Carbon Dioxide Level 26 Anion Gap 11 Blood Urea Nitrogen 8 Creatinine 0.60 L Est Glomerular Filtrat Rate mL/min > 60 Glucose Level 82 Calcium Level 9.6 Phosphorus Level 4.2 Magnesium Level 2.2 Medications Medication Current Medications Dextrose/Sodium Chloride 1,000 ml @ 50 mls/hr Q20H IV Last administered on 02/16/19 05:34; Admin Dose 125 MLS/HR; Start 02/11/19 at 01:51 IV Flush (NS 3 ml) 3 ml PER PROTOCOL IV ; Start 02/11/19 at 02:00 Ondansetron HCl (Zofran Inj) 4 mg Q6H PRN IV NAUSEA/VOMITING Last administered on 02/12/19 06:52; Admin Dose 4 MG; Start 02/11/19 at 02:00 Morphine Sulfate (morphine) 4 mg Q4H PRN IV .SEVERE PAIN 7-10 Last administered on 02/14/19at 12:27; Admin Dose 4 MG; Start 02/11/19 at 02:00 Famotidine (Pepcid Iv) 20 mg Q12 IV Last administered on 02/17/19 08:38; Admin Dose 20 MG; Start 02/11/19 at 09:00 Meropenem/Sodium Chloride 50 ml @ 100 mls/hr Q8 IVPB Last administered on 06:13; Admin Dose 100 MLS/HR; Start 02/11/19 at 14:00 Vancomycin HCl (Vanco Iv Per Pharmacy) VANCOMYCIN PER PHARMACY PER PROTOCOL XX ; Start 02/12/19 at 16:00 Vancomycin HCl 1.75 gm/Sodium Chloride 500 ml @ 125 mls/hr Q8H IVPB Last administered on 02/17/19 08:38; Admin Dose 125 MLS/HR; Start 02/14/19 at 00:00 Fluconazole 100 ml @ 100 mls/hr Q24H IVPB ; Start 02/17/19 at 20:00 MINDA CANTRELL NP Feb 17, 2019 14:22
[2019-02-17 19:23] VITALS: BP 138/87; PULSE 78; RESP 20
[2019-02-17] MEDS: FLUCONAZOLE 200 MG (PMX) 100 ML IVPB SCH (21:42)
[2019-02-18] MEDS: VANCOMYCIN HCL 1.75 GM in SOD CHLORIDE 0.9% 500 ML IVPB SCH ×2 (00:05→08:46)
[2019-02-18 01:40] VITALS: BP 134/86; PULSE 67; RESP 18
[2019-02-18] MEDS: DEXTROSE 5%-0.45% NACL 1,000 ML IV SCH ×2 (04:36→05:31)
[2019-02-18] MEDS: MEROPENEM 1 GM/50ML(PMX) 50 ML IVPB SCH ×3 (05:28→20:53)
[2019-02-18 07:22] VITALS: BP 131/78; PULSE 72; RESP 19
[2019-02-18] MEDS: FAMOTIDINE 20 MG INJ IV SCH ×2 (08:46→20:48)
[2019-02-18] MEDS ORDERED: SOD CHLORIDE 0.9% 100 ML ONE (13:55)
[2019-02-18] MEDS ORDERED: IOHEXOL 300MG/ML 150 ML BTL ONE (13:55)
[2019-02-18 14:10] VITALS: BP 136/72; RESP 18
--- NOTE | 2019-02-18 15:01 | PN ---
Date/Time of Note Date/Time of Note DATE: 02/18/19 TIME: 14:57 Assessment/Plan VTE Prophylaxis Risk score (from Ns)>0 risk: 0 SCD applied (from Ns): No SCD contraindicated: low risk/ambulating Pharmacological prophylaxis: NA/contraindicated Pharm contraindication: low risk/ambulating Lines/Catheters [facility] (from [facility]): Peripheral IV Urinary Cath still in place: No Assessment/Plan Assessment/Plan 1. Acute microperforated diverticulitis with abscess - Will repeat CT scan to evaluate abscess size. - Gen surgery on board and appreciate recommendations. - ID on board and appreciate recommendations - blood cultures negative 2. Sepsis secondary to #1 - resolved - remains afebrile with nl WBC 3. Diarrhea - stable - cdiff neg 4. Disposition - Will order CT scan A/P to reassess abscess size. Will start soft low residua l bland diet and if not tolerating transition back to full liquid Result Diagram: 02/17/19 0437 02/17/19 0437 Results 24hrs Laboratory Tests Test 02/18/19 07:51 Vancomycin Level Trough 14.6 Subjective 24 Hr Interval Summary Free Text/Dictation Patient doing well and tolerating full liquid diet. Discussed repeating CT scan and advancing diet as tolerated. Exam/Review of Systems Exam Vitals Vital Signs Date Temp Pulse Resp B/P (MAP) Pulse Ox O2 O2 Flow FiO2 Time Delivery Rate 02/18/19 98.2 72 19 131/78 96 07:22 (95) 02/18/19 Room Air 01:40 Intake and Output 02/17/19 02/17/19 02/18/19 1414:59 22:59 06:59 IntakeIntake Total 500 ml 1030 ml 775 ml OutputOutput Total 380 ml 320 ml BalanceBalance 500 ml 650 ml 455 ml Exam General: Patient is laying in bed and answers questions appropriately Neck: Supple Respiratory: Clear to auscultation bilaterally. no wheezing or rhonchi Cardiovascular: S1, S2, regular rate and rhythm, no obvious murmurs Gastrointestinal: soft, nontender to palpation, nondistended, bowel sounds heard. Neurological: Moves all extremities spontaneously Skin: No new skin lesions Results Results 24hrs Laboratory Tests Test 02/18/19 07:51 Vancomycin Level Trough 14.6 Medications Medication Current Medications Dextrose/Sodium Chloride 1,000 ml @ 50 mls/hr Q20H IV Last administered on 02/18/19 05:31; Admin Dose 50 MLS/HR; Start 02/11/19 at 01:51 IV Flush (NS 3 ml) 3 ml PER PROTOCOL IV ; Start 02/11/19 at 02:00 Ondansetron HCl (Zofran Inj) 4 mg Q6H PRN IV NAUSEA/VOMITING Last administered on 02/12/19 06:52; Admin Dose 4 MG; Start 02/11/19 at 02:00 Morphine Sulfate (morphine) 4 mg Q4H PRN IV .SEVERE PAIN 7-10 Last administered on 02/14/19 12:27; Admin Dose 4 MG; Start 02/11/19 at 02:00 Famotidine (Pepcid Iv) 20 mg Q12 IV Last administered on 02/18/19 08:46; Admin Dose 20 MG; Start 02/11/19 at 09:00 Meropenem/Sodium Chloride 50 ml @ 100 mls/hr Q8 IVPB Last administered on 02/18/19at 13:29; Admin Dose 100 MLS/HR; Start 02/11/19 at 14:00 Vancomycin HCl (Vanco Iv Per Pharmacy) VANCOMYCIN PER PHARMACY PER PROTOCOL XX ; Start 02/12/19 at 16:00 Fluconazole 100 ml @ 100 mls/hr Q24H IVPB Last administered on 02/17/19at 21:42; Admin Dose 100 MLS/HR; Start 02/17/19 at 20:00 Vancomycin HCl 1.5 gm/Sodium Chloride 250 ml @ 83.333 mls/ hr Q8H IVPB ; Start 02/18/19 at 16:00 Miscellaneous Information (*Rx Drug Level Order Reminder*) VANCOMYCIN TR 02/19 AT 1,500 1500 ONCE XX ; Start 02/19/19 at 15:00; Stop 02/19/19 at 15:01 DELFINO BULLOCK MD Feb 18, 2019 15:01
--- NOTE | 2019-02-18 15:44 | CONS ---
Assessment/Plan Assessment/Plan Hospital Course (Demo Recall) Alert feels good, no pain, no fevers, tolerates diet CT abdomen and pelvis repeated this am noted, see report in chart Antimicrobials: Vanco Merrem fluconazole Physical examination: Well-developed young man who is alert in no distress head atraumatic normocephalic neck is supple chest rise symmetrical breath sounds clear heart: S1-S2 abdomen soft mild tenderness on palpation. Extremities without cyanosis Assessment: 1. Systemic inflammatory response syndrome 2. Perforated sigmoid diverticulitis 3. Diarrhea==> neg C. difficile Plan: Stable, CT with improvement, continue antibiotics, f/u surgical rec-s Consultation Date/Type/Reason Admit Date/Time Feb 11, 2019 at 00:43 Initial Consult Date 02/11/19 Type of Consult id Date/Time of Note DATE: 02/18/19 TIME: 15:43 Exam/Review of Systems Exam Vitals Vital Signs Date Temp Pulse Resp B/P (MAP) Pulse Ox O2 O2 Flow FiO2 Time Delivery Rate 02/18/19 98.2 72 19 131/78 96 07:22 (95) 02/18/19 Room Air 01:40 Intake and Output 02/17/19 02/17/19 02/18/19 1515:00 23:00 07:00 IntakeIntake Total 500 ml 1030 ml 775 ml OutputOutput Total 380 ml 320 ml BalanceBalance 500 ml 650 ml 455 ml Results Result Diagram: 02/17/19 0437 02/17/19 0437 Results 24hrs Laboratory Tests Test 02/18/19 07:51 Vancomycin Level Trough 14.6 Medications Medication Current Medications Dextrose/Sodium Chloride 1,000 ml @ 50 mls/hr Q20H IV Last administered on 02/18/19at 05:31; Admin Dose 50 MLS/HR; Start 02/11/19 at 01:51 IV Flush (NS 3 ml) 3 ml PER PROTOCOL IV ; Start 02/11/19 at 02:00 Ondansetron HCl (Zofran Inj) 4 mg Q6H PRN IV NAUSEA/VOMITING Last administered on 02/12/19at 06:52; Admin Dose 4 MG; Start 02/11/19 at 02:00 Morphine Sulfate (morphine) 4 mg Q4H PRN IV .SEVERE PAIN 7-10 Last administered on 02/14/19at 12:27; Admin Dose 4 MG; Start 02/11/19 at 02:00 Famotidine (Pepcid Iv) 20 mg Q12 IV Last administered on 02/18/19at 08:46; Admin Dose 20 MG; Start 02/11/19 at 09:00 Meropenem/Sodium Chloride 50 ml @ 100 mls/hr Q8 IVPB Last administered on 02/18/19at 13:29; Admin Dose 100 MLS/HR; Start 02/11/19 at 14:00 Vancomycin HCl (Vanco Iv Per Pharmacy) VANCOMYCIN PER PHARMACY PER PROTOCOL XX ; Start 02/12/19 at 16:00 Fluconazole 100 ml @ 100 mls/hr Q24H IVPB Last administered on 02/17/19at 21:42; Admin Dose 100 MLS/HR; Start 02/17/19 at 20:00 Vancomycin HCl 1.5 gm/Sodium Chloride 250 ml @ 83.333 mls/ hr Q8H IVPB ; Start 02/18/19 at 16:00 Miscellaneous Information (*Rx Drug Level Order Reminder*) VANCOMYCIN TR 02/19 AT 1,500 1500 ONCE XX ; Start 02/19/19 at 15:00; Stop 02/19/19 at 15:01 MINDA CANTRELL NP Feb 18, 2019 15:44
[2019-02-18] MEDS: VANCOMYCIN HCL 1.5 GM in SOD CHLORIDE 0.9% 250 ML IVPB SCH (16:20)
[2019-02-18 19:25] VITALS: BP 137/80; PULSE 83; RESP 16
--- NOTE | 2019-02-18 19:39 | PN ---
Date/Time of Note Date/Time of Note DATE: 02/18/19 TIME: 19:31 Assessment/Plan Lines/Catheters IV Catheter Type (from Nrsg): Peripheral IV De Dios in Place (from Nrsg): No Assessment/Plan Chief Complaint/Hosp Course 28 year old with 1 wk of intermittent pain admitted with small perforation patient managed conservatively with an area of abscess in the deep pelvis that is currently not accessible to drainage. The case was reviewed with Dr. Vinson over the weekend and decision was made to wait for a few more days and rescan the patient and evaluate for possible improvement. Todays images reviewed and there appears to be interval decrease in the size of the abscess. Will need to discuss and review images with IR on whether there is any potential window to drainage. Alternatively continuation of antibiotics vs. Surgery with Colostomy. Plan: 1. Consult Radiology for repeat consideration for drainage of pelvic Abscess 2. Continue antibiotics 3. Continue soft diet Subjective 24 Hr Interval Summary Pt is doing better, able to tolerate diet without difficult, decrease abdominal pain, CT completed today Constitutional: no complaints, improved, ambulates, BM, flatus Feeding: advancing diet Pain Control: well controlled Exam/Review of Systems Vital Signs Vitals Vital Signs Date Temp Pulse Resp B/P (MAP) Pulse Ox O2 O2 Flow FiO2 Time Delivery Rate 02/18/19 97.9 83 16 137/80 98 Room Air 19:25 (99) Intake and Output 02/17/19 02/17/19 02/18/19 1515:00 23:00 07:00 IntakeIntake Total 500 ml 1030 ml 775 ml OutputOutput Total 380 ml 320 ml BalanceBalance 500 ml 650 ml 455 ml Results Result Diagram: 02/17/19 0437 02/17/[address] with interval improvement with size of the abscess RANJITH RICE MD Feb 18, 2019 19:39
[2019-02-18] MEDS: DOCUSATE SODIUM 100 MG CAP PO SCH (20:45)
[2019-02-18] MEDS: MAGNESIUM HYDROXIDE 30ML CUP PO SCH (20:45)
[2019-02-18] MEDS: FLUCONAZOLE 200 MG (PMX) 100 ML IVPB SCH (22:26)
[2019-02-19] MEDS: VANCOMYCIN HCL 1.5 GM in SOD CHLORIDE 0.9% 250 ML IVPB SCH ×3 (00:37→16:35)
[2019-02-19 01:38] VITALS: BP 113/67; PULSE 80; RESP 18
[2019-02-19] MEDS: MEROPENEM 1 GM/50ML(PMX) 50 ML IVPB SCH ×3 (06:13→22:46)
[2019-02-19 07:48] VITALS: BP 119/68; PULSE 76; RESP 18
[2019-02-19] MEDS: FAMOTIDINE 20 MG INJ IV SCH ×2 (08:18→20:37)
[2019-02-19] MEDS: DOCUSATE SODIUM 100 MG CAP PO SCH ×2 (08:18→20:37)
[2019-02-19] MEDS: MAGNESIUM HYDROXIDE 30ML CUP PO SCH ×2 (08:19→20:38)
--- NOTE | 2019-02-19 12:32 | PN ---
Date/Time of Note Date/Time of Note DATE: 02/19/19 TIME: 12:32 Assessment/Plan VTE Prophylaxis Risk score (from Ns)>0 risk: 0 SCD applied (from Ns): No SCD contraindicated: low risk/ambulating Pharmacological prophylaxis: NA/contraindicated Pharm contraindication: low risk/ambulating Lines/Catheters IV [facility] (from [facility]): Peripheral IV Urinary Cath still in place: No Assessment/Plan Assessment/Plan 1. Acute microperforated diverticulitis with abscess - Repeat CT scan shows slight decrease in size of abscess. Per surgery will t ouch base with IR to see if able to drain - Gen surgery on board and appreciate recommendations. - ID on board and appreciate recommendations. continue current antibiotics - blood cultures negative 2. Sepsis secondary to #1 - resolved - remains afebrile with nl WBC 3. Diarrhea- resolved - cdiff neg 4. Disposition - Will touch base with IR if able to drain abscess. Continue current antibiotics Result Diagram: 02/17/1943602/17/19436 Subjective 24 Hr Interval Summary Free Text/Dictation Patient doing well and tolerating soft diet. No acute overnight events. Exam/Review of Systems Exam Vitals Vital Signs Date Temp Pulse Resp B/P (MAP) Pulse Ox O2 O2 Flow FiO2 Time Delivery Rate 02/19/19 98.7 76 18 119/68 98 07:48 (85) 02/19/19 Room Air 01:38 Intake and Output 02/18/19 02/18/19 02/19/19 1515:00 23:00 07:00 IntakeIntake Total 750 ml 925 ml 1000 ml BalanceBalance 750 ml 925 ml 1000 ml Exam General: Patient is laying in bed and answers questions appropriately Neck: Supple Respiratory: Clear to auscultation bilaterally. no wheezing or rhonchi Cardiovascular: S1, S2, regular rate and rhythm, no obvious murmurs Gastrointestinal: soft, nontender to palpation, nondistended, bowel sounds hear d. Neurological: Moves all extremities spontaneously Skin: No new skin lesions Medications Medication Current Medications Dextrose/Sodium Chloride 1,000 ml @ 50 mls/hr Q20H IV Last administered on 02/18/19at 05:31; Admin Dose 50 MLS/HR; Start 02/11/19 at 01:51 IV Flush (NS 3 ml) 3 ml PER PROTOCOL IV ; Start 02/11/19 at 02:00 Ondansetron HCl (Zofran Inj) 4 mg Q6H PRN IV NAUSEA/VOMITING Last administered on 02/12/19 06:52; Admin Dose 4 MG; Start 02/11/19 at 02:00 Morphine Sulfate (morphine) 4 mg Q4H PRN IV .SEVERE PAIN 7-10 Last administered on 02/14/19 12:27; Admin Dose 4 MG; Start 02/11/19 at 02:00 Famotidine (Pepcid Iv) 20 mg Q12 IV Last administered on 02/19/19 08:18; Admin Dose 20 MG; Start 02/11/19 at 09:00 Meropenem/Sodium Chloride 50 ml @ 100 mls/hr Q8 IVPB Last administered on 02/19/19 06:13; Admin Dose 100 MLS/HR; Start 02/11/19 at 14:00 Vancomycin HCl (Vanco Iv Per Pharmacy) VANCOMYCIN PER PHARMACY PER PROTOCOL XX ; Start 02/12/19 at 16:00 Fluconazole 100 ml @ 100 mls/hr Q24H IVPB Last administered on 02/18/19 22:26; Admin Dose 100 MLS/HR; Start 02/17/19 at 20:00 Vancomycin HCl 1.5 gm/Sodium Chloride 250 ml @ 83.333 mls/ hr Q8H IVPB Last administered on 02/19/19 08:18; Admin Dose 83.333 MLS/HR; Start 02/18/19 at 16:00 Miscellaneous Information (*Rx Drug Level Order Reminder*) VANCOMYCIN TR 02/19 AT 1,500 1500 ONCE XX ; Start 02/19/19 at 15:00; Stop 02/19/19 at 15:01 Docusate Sodium (Colace) 200 mg BID PO Last administered on 02/19/19 08:18; Admin Dose 200 MG; Start 02/18/19 at 21:00 Magnesium Hydroxide (Milk Of Mag) 20 ml BID PO Last administered on 02/19/19 08:19; Admin Dose 20 ML; Start 02/18/19 at 21:00 DELFINO BULLOCK MD February 19, 2019 12:32
--- NOTE | 2019-02-19 12:49 | CONS ---
Assessment/Plan Assessment/Plan Hospital Course (Demo Recall) No acute changes, afebrile, nad Antimicrobials: Vanco Merrem fluconazole Physical examination: Well-developed young man who is alert in no distress head atraumatic normocephalic neck is supple chest rise symmetrical breath sounds clear heart: S1-S2 abdomen soft mild tenderness on palpation. Extremities without cyanosis Assessment: 1. Systemic inflammatory response syndrome 2. Perforated sigmoid diverticulitis/abscesses 3. S/p diarrhea==> neg C. difficile Plan: Stable, continue antibiotics, surgical rec-s noted, poss CT guided drainage Consultation Date/Type/Reason Admit Date/Time Feb 11, 2019 at 00:43 Initial Consult Date 02/11/19 Type of Consult id Date/Time of Note DATE: 02/19/19 TIME: 12:47 Exam/Review of Systems Exam Vitals Vital Signs Date Temp Pulse Resp B/P (MAP) Pulse Ox O2 O2 Flow FiO2 Time Delivery Rate 02/19/19 98.7 76 18 119/68 98 07:48 (85) 02/19/19 Room Air 01:38 Intake and Output 02/18/19 02/18/19 02/19/19 1515:00 23:00 07:00 IntakeIntake Total 750 ml 925 ml 1000 ml BalanceBalance 750 ml 925 ml 1000 ml Results Result Diagram: 02/17/19 0437 02/17/19 0437 Medications Medication Current Medications Dextrose/Sodium Chloride 1,000 ml @ 50 mls/hr Q20H IV Last administered on 02/18/19at 05:31; Admin Dose 50 MLS/HR; Start 02/11/19 at 01:51 IV Flush (NS 3 ml) 3 ml PER PROTOCOL IV ; Start 02/11/19 at 02:00 Ondansetron HCl (Zofran Inj) 4 mg Q6H PRN IV NAUSEA/VOMITING Last administered on 02/12/19at 06:52; Admin Dose 4 MG; Start 02/11/19 at 02:00 Morphine Sulfate (morphine) 4 mg Q4H PRN IV .SEVERE PAIN 7-10 Last administered on 02/14/19at 12:27; Admin Dose 4 MG; Start 02/11/19 at 02:00 Famotidine (Pepcid Iv) 20 mg Q12 IV Last administered on 02/19/19at 08:18; Admin Dose 20 MG; Start 02/11/19 at 09:00 Meropenem/Sodium Chloride 50 ml @ 100 mls/hr Q8 IVPB Last administered on 02/19at 06:13; Admin Dose 100 MLS/HR; Start 02/11/19 at 14:00 Vancomycin HCl (Vanco Iv Per Pharmacy) VANCOMYCIN PER PHARMACY PER PROTOCOL XX ; Start 02/12/19 at 16:00 Fluconazole 100 ml @ 100 mls/hr Q24H IVPB Last administered on 02/18/19at 22:26; Admin Dose 100 MLS/HR; Start 02/17/19 at 20:00 Vancomycin HCl 1.5 gm/Sodium Chloride 250 ml @ 83.333 mls/ hr Q8H IVPB Last administered on 02/19/19at 08:18; Admin Dose 83.333 MLS/HR; Start 02/18/19 at 16:00 Miscellaneous Information (*Rx Drug Level Order Reminder*) VANCOMYCIN TR 02/19 AT 1,500 1500 ONCE XX ; Start 02/19/19 at 15:00; Stop 02/19/19 at 15:01 Docusate Sodium (Colace) 200 mg BID PO Last administered on 02/19/19at 08:18; Admin Dose 200 MG; Start 02/18/19 at 21:00 Magnesium Hydroxide (Milk Of Mag) 20 ml BID PO Last administered on 02/19/19at 08:19; Admin Dose 20 ML; Start 02/18/19 at 21:00 MINDA CANTRELL NP February 19, 2019 12:49
[2019-02-19 15:02] VITALS: BP 119/66; PULSE 73; RESP 18
[2019-02-19 19:29] VITALS: BP 131/73; PULSE 78; RESP 18
[2019-02-19] MEDS: DEXTROSE 5%-0.45% NACL 1,000 ML IV SCH (20:36)
[2019-02-19] MEDS: FLUCONAZOLE 200 MG (PMX) 100 ML IVPB SCH (20:38)
[2019-02-20] MEDS: VANCOMYCIN HCL 1.5 GM in SOD CHLORIDE 0.9% 250 ML IVPB SCH ×4 (00:19→23:33)
[2019-02-20 01:19] VITALS: BP 138/83; PULSE 78; RESP 18
[2019-02-20] MEDS: MEROPENEM 1 GM/50ML(PMX) 50 ML IVPB SCH ×4 (06:15→21:03)
[2019-02-20 08:09] VITALS: BP 122/68; PULSE 72; RESP 18
[2019-02-20] MEDS: FAMOTIDINE 20 MG INJ IV SCH ×2 (08:36→20:39)
[2019-02-20] MEDS: DOCUSATE SODIUM 100 MG CAP PO SCH ×2 (09:00→20:39)
[2019-02-20] MEDS: MAGNESIUM HYDROXIDE 30ML CUP PO SCH ×2 (09:00→20:39)
--- NOTE | 2019-02-20 11:23 | CONS ---
Assessment/Plan Assessment/Plan Hospital Course (Demo Recall) No acute changes, looks comfortable, afebrile Antimicrobials: Vanco Merrem fluconazole Physical examination: Well-developed young man who is alert in no distress head atraumatic normocephalic neck is supple chest rise symmetrical breath sounds clear heart: S1-S2 abdomen soft mild tenderness on palpation. Extremities without cyanosis Assessment: 1. Systemic inflammatory response syndrome 2. Perforated sigmoid diverticulitis/abscesses 3. S/p diarrhea==> neg C. difficile Plan: Remains stable, surgical rec-s noted, poss CT guided drainage, if not able then will need to be on IV abx for another [address] before discontinuation Consultation Date/Type/Reason Admit Date/Time Feb 11, 2019 at 00:43 Initial Consult Date 02/11/19 Type of Consult id Date/Time of Note DATE: 02/20/19 TIME: 11:22 Exam/Review of Systems Exam Vitals Vital Signs Date Temp Pulse Resp B/P (MAP) Pulse Ox O2 O2 Flow FiO2 Time Delivery Rate 02/20/19 98.4 72 18 122/68 92 Room Air 08:09 (86) Intake and Output 02/19/19 02/19/19 02/20/19 1515:00 23:00 07:00 IntakeIntake Total 1000 ml 1350 ml 550 ml BalanceBalance 1000 ml 1350 ml 550 ml Results Result Diagram: 02/20/19 0438 02/20/19 0438 Results 24hrs Laboratory Tests Test 02/19/19 15:11 02/20/19 04:38 Vancomycin Level Trough 14.6 White Blood Count 11.4 #H Red Blood Count 4.77 Hemoglobin 12.9 L Hematocrit 39.6 L Mean Corpuscular Volume 83.0 Mean Corpuscular Hemoglobin 27.0 L Mean Corpuscular Hemoglobin Concent 32.6 Red Cell Distribution Width 13.5 Platelet Count 528 H Mean Platelet Volume 10.1 Immature Granulocytes % 0.400 Neutrophils % Segmented Neutrophils % (Manual) 72 Band Neutrophils % (Manual) 3 Lymphocytes % Lymphocytes % (Manual) 13 L Reactive Lymphocytes % (Manual) 4 H Monocytes % Monocytes % (Manual) 7 Eosinophils % Eosinophils % (Manual) 1 Basophils % Nucleated Red Blood Cells % 0.0 Immature Granulocytes # 0.050 H Neutrophils # Neutrophils # (Manual) 8.2 H Band Neutrophils # 0.3 Lymphocytes (Manual) 1.4 Lymphocytes # Reactive Lymphocytes # 0.4 H Monocytes # Monocytes # (Manual) 0.7 Eosinophils # Basophils # Nucleated Red Blood Cells # Platelet Estimate INCREASED Polychromasia 1+ Anisocytosis 1+ Microcytosis 1+ Spherocytes 1+ Sodium Level 144 Potassium Level 4.5 Chloride Level 106 Carbon Dioxide Level 30 Anion Gap 8 Blood Urea Nitrogen 9 Creatinine 0.72 Glucose Level 103 Calcium Level 9.6 Phosphorus Level 4.8 Magnesium Level 2.5 Albumin 3.9 Medications Medication Current Medications Dextrose/Sodium Chloride 1,000 ml @ 50 mls/hr Q20H IV Last administered on 02/18/19 05:31; Admin Dose 50 MLS/HR; Start 02/11/19 at 01:51 IV Flush (NS 3 ml) 3 ml PER PROTOCOL IV ; Start 02/11/19 at 02:00 Ondansetron HCl (Zofran Inj) 4 mg Q6H PRN IV NAUSEA/VOMITING Last administered on 02/12/19 06:52; Admin Dose 4 MG; Start 02/11/19 at 02:00 Morphine Sulfate (morphine) 4 mg Q4H PRN IV .SEVERE PAIN 7-10 Last administered on 02/14/19 12:27; Admin Dose 4 MG; Start 02/11/19 at 02:00 Famotidine (Pepcid Iv) 20 mg Q12 IV Last administered on 02/20/19 08:36; Admin Dose 20 MG; Start 02/11/19 at 09:00 Meropenem/Sodium Chloride 50 ml @ 100 mls/hr Q8 IVPB Last administered on 02/20/19 06:15; Admin Dose 100 MLS/HR; Start 02/11/19 at 14:00 Vancomycin HCl (Vanco Iv Per Pharmacy) VANCOMYCIN PER PHARMACY PER PROTOCOL XX ; Start 02/12/19 at 16:00 Fluconazole 100 ml @ 100 mls/hr Q24H IVPB Last administered on 02/19/19at 20:38; Admin Dose 100 MLS/HR; Start 02/17/19 at 20:00 Vancomycin HCl 1.5 gm/Sodium Chloride 250 ml @ 83.333 mls/ hr Q8H IVPB Last administered on 02/20/19 08:36; Admin Dose 83.333 MLS/HR; Start 02/18/19 at 16:00 Docusate Sodium (Colace) 200 mg BID PO Last administered on 02/19/19at 20:37; Admin Dose 200 MG; Start 02/18/19 at 21:00 Magnesium Hydroxide (Milk Of Mag) 20 ml BID PO Last administered on 02/19/19at 20:38; Admin Dose 20 ML; Start 02/18/19 at 21:00 MINDA CANTRELL NP February 20, 2019 11:23
[2019-02-20] MEDS ORDERED: LIDOCAINE 1% (MDV) 20 ML INJ ONE (12:35)
[2019-02-20] MEDS ORDERED: FENTAnyl 50 MCG/ML VIAL ONE (13:24)
[2019-02-20 14:52] VITALS: BP 118/73; PULSE 88; RESP 18
--- NOTE | 2019-02-20 16:20 | PN ---
Date/Time of Note Date/Time of Note DATE: 02/20/19 TIME: 16:16 Assessment/Plan VTE [place]axis [place] [facility] [place]: 2 [place] [facility] [place] SCD contraindicated: low risk/ambulating Pharmacological prophylaxis: NA/contraindicated Pharm contraindication: surgical contra Lines/Catheters IV Catheter Type (from [facility]): Peripheral IV Urinary Cath still in place: No Assessment/Plan Assessment/Plan 1. Acute microperforated diverticulitis with abscess - Plans for IR drainage today and will send sample to lab - Gen surgery on board and appreciate recommendations. - ID on board and appreciate recommendations. continue current antibiotics - blood cultures negative 2. Diarrhea- resolved - cdiff neg 3. Disposition - IR drainage schedule for today. Will monitor drain output Result Diagram: 02/20/198 02/20/19 0438 Results 24hrs Laboratory Tests Test 02/20/19 04:38 White Blood Count 11.4 #H Red Blood Count 4.77 Hemoglobin 12.9 L Hematocrit 39.6 L Mean Corpuscular Volume 83.0 Mean Corpuscular Hemoglobin 27.0 L Mean Corpuscular Hemoglobin Concent 32.6 Red Cell Distribution Width 13.5 Platelet Count 528 H Mean Platelet Volume 10.1 Immature Granulocytes % 0.400 Neutrophils % Segmented Neutrophils % (Manual) 72 Band Neutrophils % (Manual) 3 Lymphocytes % Lymphocytes % (Manual) 13 L Reactive Lymphocytes % (Manual) 4 H Monocytes % Monocytes % (Manual) 7 Eosinophils % Eosinophils % (Manual) 1 Basophils % Nucleated Red Blood Cells % 0.0 Immature Granulocytes # 0.050 H Neutrophils # Neutrophils # (Manual) 8.2 H Band Neutrophils # 0.3 Lymphocytes (Manual) 1.4 Lymphocytes # Reactive Lymphocytes # 0.4 H Monocytes # Monocytes # (Manual) 0.7 Eosinophils # Basophils # Nucleated Red Blood Cells # Platelet Estimate INCREASED Polychromasia 1+ Anisocytosis 1+ Microcytosis 1+ Spherocytes 1+ Sodium Level 144 Potassium Level 4.5 Chloride Level 106 Carbon Dioxide Level 30 Anion Gap 8 Blood Urea Nitrogen 9 Creatinine 0.72 Glucose Level 103 Calcium Level 9.6 Phosphorus Level 4.8 Magnesium Level 2.5 Albumin 3.9 Subjective 24 Hr Interval Summary Free Text/Dictation Patient denies any worsening abdominal pain and nervous about procedure today. No acute overnight events. Exam/Review of Systems Exam Vitals Vital Signs Date Temp Pulse Resp B/P (MAP) Pulse Ox O2 O2 Flow FiO2 Time Delivery Rate 02/20/19 98.8 88 18 118/73 97 Room Air 14:52 (88) Intake and Output 02/19/19 02/19/19 02/20/19 1515:00 23:00 07:00 IntakeIntake Total 1000 ml 1350 ml 550 ml BalanceBalance 1000 ml 1350 ml 550 ml Exam General: Patient is laying in bed and answers questions appropriately Neck: Supple Respiratory: Clear to auscultation bilaterally. no wheezing or rhonchi Cardiovascular: S1, S2, regular rate and rhythm, no obvious murmurs Gastrointestinal: soft, nontender to palpation, nondistended, bowel sounds heard. Neurological: Moves all extremities spontaneously Skin: No new skin lesions Results Results 24hrs Laboratory Tests Test 02/20/19 04:38 White Blood Count 11.4 #H Red Blood Count 4.77 Hemoglobin 12.9 L Hematocrit 39.6 L Mean Corpuscular Volume 83.0 Mean Corpuscular Hemoglobin 27.0 L Mean Corpuscular Hemoglobin Concent 32.6 Red Cell Distribution Width 13.5 Platelet Count 528 H Mean Platelet Volume 10.1 Immature Granulocytes % 0.400 Neutrophils % Segmented Neutrophils % (Manual) 72 Band Neutrophils % (Manual) 3 Lymphocytes % Lymphocytes % (Manual) 13 L Reactive Lymphocytes % (Manual) 4 H Monocytes % Monocytes % (Manual) 7 Eosinophils % Eosinophils % (Manual) 1 Basophils % Nucleated Red Blood Cells % 0.0 Immature Granulocytes # 0.050 H Neutrophils # Neutrophils # (Manual) 8.2 H Band Neutrophils # 0.3 Lymphocytes (Manual) 1.4 Lymphocytes # Reactive Lymphocytes # 0.4 H Monocytes # Monocytes # (Manual) 0.7 Eosinophils # Basophils # Nucleated Red Blood Cells # Platelet Estimate INCREASED Polychromasia 1+ Anisocytosis 1+ Microcytosis 1+ Spherocytes 1+ Sodium Level 144 Potassium Level 4.5 Chloride Level 106 Carbon Dioxide Level 30 Anion Gap 8 Blood Urea Nitrogen 9 Creatinine 0.72 Glucose Level 103 Calcium Level 9.6 Phosphorus Level 4.8 Magnesium Level 2.5 Albumin 3.9 Medications Medication Current Medications Dextrose/Sodium Chloride 1,000 ml @ 50 mls/hr Q20H IV Last administered on 02/18/19at 05:31; Admin Dose 50 MLS/HR; Start 02/11/19 at 01:51 IV Flush (NS 3 ml) 3 ml PER PROTOCOL IV ; Start 02/11/19 at 02:00 Ondansetron HCl (Zofran Inj) 4 mg Q6H PRN IV NAUSEA/VOMITING Last administered on 02/12/19 06:52; Admin Dose 4 MG; Start 02/11/19 at 02:00 Morphine Sulfate (morphine) 4 mg Q4H PRN IV .SEVERE PAIN 7-10 Last administered on 02/14/19 12:27; Admin Dose 4 MG; Start 02/11/19 at 02:00 Famotidine (Pepcid Iv) 20 mg Q12 IV Last administered on 02/20/19 08:36; Admin Dose 20 MG; Start 02/11/19 at 09:00 Meropenem/Sodium Chloride 50 ml @ 100 mls/hr Q8 IVPB Last administered on 02/20/19 14:50; Admin Dose 100 MLS/HR; Start 02/11/19 at 14:00 Vancomycin HCl (Vanco Iv Per Pharmacy) VANCOMYCIN PER PHARMACY PER PROTOCOL XX ; Start 02/12/19 at 16:00 Fluconazole 100 ml @ 100 mls/hr Q24H IVPB Last administered on 02/19/19 20:38; Admin Dose 100 MLS/HR; Start 02/17/19 at 20:00 Vancomycin HCl 1.5 gm/Sodium Chloride 250 ml @ 83.333 mls/ hr Q8H IVPB Last administered on 02/20/19 08:36; Admin Dose 83.333 MLS/HR; Start 02/18/19 at 16:00 Docusate Sodium (Colace) 200 mg BID PO Last administered on 02/19/19 20:37; Admin Dose 200 MG; Start 02/18/19 at 21:00 Magnesium Hydroxide (Milk Of Mag) 20 ml BID PO Last administered on 02/19/19 20:38; Admin Dose 20 ML; Start 02/18/19 at 21:00 DELFINO BULLOCK MD February 20, 2019 16:20
[2019-02-20] MEDS ORDERED: HYDROCODONE/APAP (5/325) TAB PO PRN (16:30)
[2019-02-20] MEDS: HYDROCODONE/APAP (10/325) TAB PO PRN (16:32)
[2019-02-20] MEDS: DEXTROSE 5%-0.45% NACL 1,000 ML IV SCH ×2 (16:36→22:31)
--- NOTE | 2019-02-20 19:16 | PN ---
Date/Time of Note Date/Time of Note DATE: 02/20/19 TIME: 19:15 Assessment/Plan Lines/Catheters IV Catheter Type (from Nrs): Peripheral IV De [place] in Place (from Nrs): No Assessment/Plan Assessment/Plan Perforated diverticulitis. Patient is recovering with antibiotics. Patient had additional per cutaneous drain. Diet can be advanced. Continue antibiotics. Subjective 24 Hr Interval Summary The patient had a percutaneous CT-guided drainage of the pelvic abscess today Constitutional: no complaints Feeding: advancing diet Pain Control: well controlled Exam/Review of Systems Vital Signs Vitals Vital Signs Date Temp Pulse Resp B/P (MAP) Pulse Ox O2 O2 Flow FiO2 Time Delivery Rate 02/20/19 98.8 88 18 118/73 97 Room Air 14:52 (88) Intake and Output 02/19/19 02/19/19 02/20/19 1515:00 23:00 07:00 IntakeIntake Total 1000 ml 1350 ml 550 ml BalanceBalance 1000 ml 1350 ml 550 ml Exam Gastrointestinal: soft, non-tender Results Result Diagram: 02/20/19 0438 02/20/19 0438 CARMEN CHAIREZ MD February 20, 2019 19:16
[2019-02-20 19:55] VITALS: BP 122/66; PULSE 79; RESP 18
[2019-02-20] MEDS: FLUCONAZOLE 200 MG (PMX) 100 ML IVPB SCH (22:31)
[2019-02-21 02:30] VITALS: BP 125/74; PULSE 71; RESP 18
[2019-02-21] MEDS: HYDROCODONE/APAP (10/325) TAB PO PRN (05:05)
[2019-02-21] MEDS: MEROPENEM 1 GM/50ML(PMX) 50 ML IVPB SCH ×3 (05:05→22:55)
[2019-02-21] MEDS: VANCOMYCIN HCL 1.5 GM in SOD CHLORIDE 0.9% 250 ML IVPB SCH ×2 (08:20→16:21)
[2019-02-21] MEDS: FAMOTIDINE 20 MG INJ IV SCH ×2 (08:20→20:37)
[2019-02-21] MEDS: MAGNESIUM HYDROXIDE 30ML CUP PO SCH ×2 (08:21→20:37)
[2019-02-21] MEDS: DOCUSATE SODIUM 100 MG CAP PO SCH ×2 (08:21→20:38)
[2019-02-21 08:31] VITALS: BP 124/71; PULSE 76; RESP 18
[2019-02-21 08:41] VITALS: BP 113/71; RESP 18
[2019-02-21] MEDS: DEXTROSE 5%-0.45% NACL 1,000 ML IV SCH (12:36)
--- NOTE | 2019-02-21 13:17 | CONS ---
Assessment/Plan Assessment/Plan Hospital Course (Demo Recall) Alert, feels good, no fevers overnight Antimicrobials: Vanco Merrem fluconazole Physical examination: Well-developed young man who is alert in no distress head atraumatic normocephalic neck is supple chest rise symmetrical breath sounds clear heart: S1-S2 abdomen soft, left-sided pigtail catheter present with bloody drainage, small amount Assessment: 1. Systemic inflammatory response syndrome 2. Perforated sigmoid diverticulitis/abscesses, status post CT-guided drainage 3. S/p diarrhea==> neg C. difficile Plan: Remains stable, s/p CT guided drainage 02/20/19, continue abx, f/u fluid cx, surgical rec-s Consultation Date/Type/Reason Admit Date/Time Feb 11, 2019 at 00:43 Initial Consult Date 02/11/19 Type of Consult id Date/Time of Note DATE: 02/21/19 TIME: 13:16 Exam/Review of Systems Exam Vitals Vital Signs Date Temp Pulse Resp B/P (MAP) Pulse Ox O2 O2 Flow FiO2 Time Delivery Rate 02/21/19 98.1 18 113/71 98 08:41 (85) 02/21/19 76 08:31 02/20/19 Room Air 14:52 Intake and Output 02/20/19 02/20/19 02/21/19 1515:00 23:00 07:00 IntakeIntake Total 250 ml 390 ml 750 ml OutputOutput Total 405 ml BalanceBalance 250 ml 390 ml 345 ml Results Result Diagram: 02/21/19 0448 02/21/19 0448 Results 24hrs Laboratory Tests Test 02/21/19 04:48 White Blood Count 9.2 Red Blood Count 4.81 Hemoglobin 12.9 L Hematocrit 40.1 L Mean Corpuscular Volume 83.4 Mean Corpuscular Hemoglobin 26.8 L Mean Corpuscular Hemoglobin Concent 32.2 Red Cell Distribution Width 13.4 Platelet Count 477 H Mean Platelet Volume 10.2 Immature Granulocytes % 0.400 Neutrophils % 67.1 Segmented Neutrophils % (Manual) 56 Band Neutrophils % (Manual) 3 Lymphocytes % 24.9 Lymphocytes % (Manual) 30 Reactive Lymphocytes % (Manual) 3 H Monocytes % 5.4 Monocytes % (Manual) 6 Eosinophils % 1.5 Eosinophils % (Manual) 2 Basophils % 0.7 Nucleated Red Blood Cells % 0.0 Immature Granulocytes # 0.040 H Neutrophils # 6.1 Neutrophils # (Manual) 5.2 Band Neutrophils # 0.2 Lymphocytes (Manual) 2.7 Lymphocytes # 2.3 Reactive Lymphocytes # 0.2 H Monocytes # 0.5 Monocytes # (Manual) 0.5 Eosinophils # 0.1 Basophils # 0.1 Nucleated Red Blood Cells # 0.0 Platelet Estimate NORMAL Polychromasia 1+ Anisocytosis 1+ Microcytosis 1+ Sodium Level 141 Potassium Level 4.3 Chloride Level 104 Carbon Dioxide Level 29 Anion Gap 8 Blood Urea Nitrogen 10 Creatinine 0.59 L Glucose Level 97 Calcium Level 9.3 Phosphorus Level 4.3 Magnesium Level 2.5 Albumin 4.0 Medications Medication Current Medications Dextrose/Sodium Chloride 1,000 ml @ 50 mls/hr Q20H IV Last administered on 02/20/19 22:31; Admin Dose 50 MLS/HR; Start 02/11/19 at 01:51 IV Flush (NS 3 ml) 3 ml PER PROTOCOL IV ; Start 02/11/19 at 02:00 Ondansetron HCl (Zofran Inj) 4 mg Q6H PRN IV NAUSEA/VOMITING Last administered on 02/12/19at 06:52; Admin Dose 4 MG; Start 02/11/19 at 02:00 Morphine Sulfate (morphine) 4 mg Q4H PRN IV .SEVERE PAIN 7-10 Last administered on 02/14/19 12:27; Admin Dose 4 MG; Start 02/11/19 at 02:00 Famotidine (Pepcid Iv) 20 mg Q12 IV Last administered on 02/21/19 08:20; Admin Dose 20 MG; Start 02/11/19 at 09:00 Meropenem/Sodium Chloride 50 ml @ 100 mls/hr Q8 IVPB Last administered on 02/21/19 05:05; Admin Dose 100 MLS/HR; Start 02/11/19 at 14:00 Vancomycin HCl (Vanco Iv Per Pharmacy) VANCOMYCIN PER PHARMACY PER PROTOCOL XX ; Start 02/12/19 at 16:00 Fluconazole 100 ml @ 100 mls/hr Q24H IVPB Last administered on 02/20/19 22:31; Admin Dose 100 MLS/HR; Start 02/17/19 at 20:00 Vancomycin HCl 1.5 gm/Sodium Chloride 250 ml @ 83.333 mls/ hr Q8H IVPB Last administered on 02/21/19at 08:20; Admin Dose 83.333 MLS/HR; Start 02/18/19 at 16:00 Docusate Sodium (Colace) 200 mg BID PO Last administered on 02/21/19at 08:21; Admin Dose 200 MG; Start 02/18/19 at 21:00 Magnesium Hydroxide (Milk Of Mag) 20 ml BID PO Last administered on 02/21/19at 08:21; Admin Dose 20 ML; Start 02/18/19 at 21:00 Acetaminophen/ Hydrocodone Bitart ([place] (5/325)) 1 tab Q4H PRN PO MODERATE PAIN LEVEL 4-6; Start 02/20/19 at 16:30 Acetaminophen/ Hydrocodone Bitart ([place] (10/325)) 1 tab Q6H PRN PO PAIN LEVEL 7-10 Last administered on 02/21/19at 05:05; Admin Dose 1 TAB; Start 02/20/19 at 16:30 Miscellaneous Information (*Rx Drug Level Order Reminder*) VANCO TROUGH 02/22 @ 0,700 0700 ONCE XX ; Start 02/22/19 at 07:00; Stop 02/22/19 at 07:01 MINDA CANTRELL NP February 21, 2019 13:17
[2019-02-21 14:20] VITALS: BP 114/62; RESP 18
--- NOTE | 2019-02-21 14:59 | PN ---
Date/Time of Note Date/Time of Note DATE: 02/21/19 TIME: 14:55 Assessment/Plan VTE Prophylaxis Risk score (from [facility] [place])>0 risk: 1 SCD applied (from [facility] [place]): Yes Pharmacological prophylaxis: NA/contraindicated Pharm contraindication: low risk/ambulating Lines/Catheters IV [facility]ter Type (from [facility]): Peripheral IV Urinary Cath still in place: No Assessment/Plan Assessment/Plan 1. Acute microperforated diverticulitis with abscess - drain in place and appreciate IR consultation. Will monitor output and repeat CT scan for resolution of abscess. Patient would like drain removed prior to discharge home - Gen surgery on board and appreciate recommendations. - ID on board and appreciate recommendations. continue current antibiotics - blood cultures negative 2. Diarrhea- resolved - cdiff neg 3. Disposition - Continue drain care and will monitor output. Reassess in a couple days for resolution of abscess based on drain output Result Diagram: 02/21/19 0448 02/21/198 Results 24hrs Laboratory Tests Test 02/21/19 04:48 White Blood Count 9.2 Red Blood Count 4.81 Hemoglobin 12.9 L Hematocrit 40.1 L Mean Corpuscular Volume 83.4 Mean Corpuscular Hemoglobin 26.8 L Mean Corpuscular Hemoglobin Concent 32.2 Red Cell Distribution Width 13.4 Platelet Count 477 H Mean Platelet Volume 10.2 Immature Granulocytes % 0.400 Neutrophils % 67.1 Segmented Neutrophils % (Manual) 56 Band Neutrophils % (Manual) 3 Lymphocytes % 24.9 Lymphocytes % (Manual) 30 Reactive Lymphocytes % (Manual) 3 H Monocytes % 5.4 Monocytes % (Manual) 6 Eosinophils % 1.5 Eosinophils % (Manual) 2 Basophils % 0.7 Nucleated Red Blood Cells % 0.0 Immature Granulocytes # 0.040 H Neutrophils # 6.1 Neutrophils # (Manual) 5.2 Band Neutrophils # 0.2 Lymphocytes (Manual) 2.7 Lymphocytes # 2.3 Reactive Lymphocytes # 0.2 H Monocytes # 0.5 Monocytes # (Manual) 0.5 Eosinophils # 0.1 Basophils # 0.1 Nucleated Red Blood Cells # 0.0 Platelet Estimate NORMAL Polychromasia 1+ Anisocytosis 1+ Microcytosis 1+ Sodium Level 141 Potassium Level 4.3 Chloride Level 104 Carbon Dioxide Level 29 Anion Gap 8 Blood Urea Nitrogen 10 Creatinine 0.59 L Glucose Level 97 Calcium Level 9.3 Phosphorus Level 4.3 Magnesium Level 2.5 Albumin 4.0 Subjective 24 Hr Interval Summary Free Text/Dictation Patient complaining of soreness but denies any severe pain, nausea, or vomiting, tolerating PO intake. Had BM without any blood noted. Exam/Review of Systems Exam Vitals Vital Signs Date Temp Pulse Resp B/P (MAP) Pulse Ox O2 O2 Flow FiO2 Time Delivery Rate 02/21/19 98.4 18 114/62 96 14:20 (79) 02/21/19 76 08:31 02/20/19 Room Air 14:52 Intake and Output 02/20/19 02/20/19 02/21/19 1515:00 23:00 07:00 IntakeIntake Total 250 ml 390 ml 750 ml OutputOutput Total 405 ml BalanceBalance 250 ml 390 ml 345 ml Exam General: Patient is laying in bed and answers questions appropriately Neck: Supple Respiratory: Clear to auscultation bilaterally. no wheezing or rhonchi Cardiovascular: S1, S2, regular rate and rhythm, no obvious murmurs Gastrointestinal: soft, mildly tender to palpation site of drain placement, nondistended, bowel sounds heard. accordion drain in place, scant blood tinged fluid Neurological: Moves all extremities spontaneously Skin: No new skin lesions Results Results 24hrs Laboratory Tests Test 02/21/19 04:48 White Blood Count 9.2 Red Blood Count 4.81 Hemoglobin 12.9 L Hematocrit 40.1 L Mean Corpuscular Volume 83.4 Mean Corpuscular Hemoglobin 26.8 L Mean Corpuscular Hemoglobin Concent 32.2 Red Cell Distribution Width 13.4 Platelet Count 477 H Mean Platelet Volume 10.2 Immature Granulocytes % 0.400 Neutrophils % 67.1 Segmented Neutrophils % (Manual) 56 Band Neutrophils % (Manual) 3 Lymphocytes % 24.9 Lymphocytes % (Manual) 30 Reactive Lymphocytes % (Manual) 3 H Monocytes % 5.4 Monocytes % (Manual) 6 Eosinophils % 1.5 Eosinophils % (Manual) 2 Basophils % 0.7 Nucleated Red Blood Cells % 0.0 Immature Granulocytes # 0.040 H Neutrophils # 6.1 Neutrophils # (Manual) 5.2 Band Neutrophils # 0.2 Lymphocytes (Manual) 2.7 Lymphocytes # 2.3 Reactive Lymphocytes # 0.2 H Monocytes # 0.5 Monocytes # (Manual) 0.5 Eosinophils # 0.1 Basophils # 0.1 Nucleated Red Blood Cells # 0.0 Platelet Estimate NORMAL Polychromasia 1+ Anisocytosis 1+ Microcytosis 1+ Sodium Level 141 Potassium Level 4.3 Chloride Level 104 Carbon Dioxide Level 29 Anion Gap 8 Blood Urea Nitrogen 10 Creatinine 0.59 L Glucose Level 97 Calcium Level 9.3 Phosphorus Level 4.3 Magnesium Level 2.5 Albumin 4.0 Medications Medication Current Medications Dextrose/Sodium Chloride 1,000 ml @ 50 mls/hr Q20H IV Last administered on 02/20/19 22:31; Admin Dose 50 MLS/HR; Start 02/11/19 at 01:51 IV Flush (NS 3 ml) 3 ml PER PROTOCOL IV ; Start 02/11/19 at 02:00 Ondansetron HCl (Zofran Inj) 4 mg Q6H PRN IV NAUSEA/VOMITING Last administered on 02/12/19 06:52; Admin Dose 4 MG; Start 02/11/19 at 02:00 Morphine Sulfate (morphine) 4 mg Q4H PRN IV .SEVERE PAIN 7-10 Last administered on 02/14/19 12:27; Admin Dose 4 MG; Start 02/11/19 at 02:00 Famotidine (Pepcid Iv) 20 mg Q12 IV Last administered on 02/21/19 08:20; Admin Dose 20 MG; Start 02/11/19 at 09:00 Meropenem/Sodium Chloride 50 ml @ 100 mls/hr Q8 IVPB Last administered on 02/21/19 14:05; Admin Dose 100 MLS/HR; Start 02/11/19 at 14:00 Vancomycin HCl (Vanco Iv Per Pharmacy) VANCOMYCIN PER PHARMACY PER PROTOCOL XX ; Start 02/12/19 at 16:00 Fluconazole 100 ml @ 100 mls/hr Q24H IVPB Last administered on 02/20/19 22:31; Admin Dose 100 MLS/HR; Start 02/17/19 at 20:00 Vancomycin HCl 1.5 gm/Sodium Chloride 250 ml @ 83.333 mls/ hr Q8H IVPB Last administered on 02/21/19 08:20; Admin Dose 83.333 MLS/HR; Start 02/18/19 at 16:00 Docusate Sodium (Colace) 200 mg BID PO Last administered on 02/21/19 08:21; Admin Dose 200 MG; Start 4/30/19 at 21:00 Magnesium Hydroxide (Milk Of Mag) 20 ml BID PO Last administered on 02/21/19at 08:21; Admin Dose 20 ML; Start 02/18/19 at 21:00 Acetaminophen/ Hydrocodone Bitart ([place] (5/325)) 1 tab Q4H PRN PO MODERATE PAIN LEVEL 4-6; Start 02/20/19 at 16:30 Acetaminophen/ Hydrocodone Bitart ([place] (10/325)) 1 tab Q6H PRN PO PAIN LEVEL 7-10 Last administered on 02/21/19at 05:05; Admin Dose 1 TAB; Start 02/20/19 at 16:30 Miscellaneous Information (*Rx Drug Level Order Reminder*) VANCO TROUGH 02/22 @ 0,700 0700 ONCE XX ; Start 02/22/19 at 07:00; Stop 02/22/19 at 07:01 DELFINO BULLOCK MD February 21, 2019 14:59
[2019-02-21 19:45] VITALS: BP 121/69; PULSE 80; RESP 20
[2019-02-21] MEDS: FLUCONAZOLE 200 MG (PMX) 100 ML IVPB SCH (20:37)
[2019-02-22] MEDS: VANCOMYCIN HCL 1.5 GM in SOD CHLORIDE 0.9% 250 ML IVPB SCH (00:57)
[2019-02-22] MEDS: MEROPENEM 1 GM/50ML(PMX) 50 ML IVPB SCH (05:59)
[2019-02-22 08:15] VITALS: BP 118/62; PULSE 68; RESP 18
[2019-02-22] MEDS: MAGNESIUM HYDROXIDE 30ML CUP PO SCH ×2 (09:39→20:49)
[2019-02-22] MEDS: DOCUSATE SODIUM 100 MG CAP PO SCH ×2 (09:39→20:49)
[2019-02-22] MEDS: FAMOTIDINE 20 MG INJ IV SCH ×2 (09:40→20:49)
[2019-02-22] MEDS: DEXTROSE 5%-0.45% NACL 1,000 ML IV SCH ×2 (09:44→18:08)
--- NOTE | 2019-02-22 10:22 | CONS ---
Consultation Date/Type/Reason Admit Date/Time Feb 11, 2019 at 00:43 Initial Consult Date 02/11/19 Type of Consult SUBJECTIVE: Pt is awake, alert. Resting in bed. NO fevers. s/p CT guided drainage 02/20/19 of abscess. VS: stable. T: 98.2 LABS: WBC-8.0 Antimicrobials: Vanco, Merrem, fluconazole, Levaquin MICROBIOLOGY: Blood Cx are negative. Wound culture: GRAM STAIN Final POLYMORPH. LEUKOCYTE 1+ GRAM POSITIVE COCCI RARE WOUND CULTURE Preliminary Organism 1 ESCHERICHIA COLI QUANTITY SCANT GROWTH E COLI M.I.C. RX --------- --- AMPICILLIN <=2 S CEFAZOLIN <=4 S CEFOTAXIME S CIPROFLOXACIN <=0.25 S GENTAMICIN <=1 S LEVOFLOXACIN <=0.12 S NITROFURANTOIN <=16 S TOBRAMYCIN <=1 S TRIMETHOPRIM/SULFAMETHOXAZOLE <=20 S Physical examination: GEN: Well-developed young man, who is alert in no distress HENT: head atraumatic normocephalic, neck is supple PULM: chest rise symmetrical, breath sounds clear Heart: S1-S2 Abdomen: soft, left-sided pigtail catheter present with bloody drainage, small amount Assessment: 1. Systemic inflammatory response syndrome 2. Perforated sigmoid diverticulitis/abscesses, status post CT-guided drainage 3. S/p diarrhea==> neg C. difficile Plan: Remains stable. Drain intact. Final wound cx noted + E.coli. Will D/C VAnco, Diflucan and Merrem. Start Levaquin. Surgery following. Date/Time of Note DATE: 02/22/19 TIME: 10:15 Exam/Review of Systems Exam Vitals Vital Signs Date Temp Pulse Resp B/P (MAP) Pulse Ox O2 O2 Flow FiO2 Time Delivery Rate 02/22/19 98.2 68 18 118/62 90 Room Air 08:15 (80) Intake and Output 02/21/19 02/21/19 02/22/19 1515:00 23:00 07:00 IntakeIntake Total 900 ml 800 ml 850 ml OutputOutput Total 5 ml 705 ml BalanceBalance 900 ml 795 ml 145 ml Results Result Diagram: 02/22/19 0656 02/22/19 0656 Results 24hrs Laboratory Tests Test 02/22/19 06:56 White Blood Count 8.0 Red Blood Count 4.85 Hemoglobin 13.1 L Hematocrit 40.7 L Mean Corpuscular Volume 83.9 Mean Corpuscular Hemoglobin 27.0 L Mean Corpuscular Hemoglobin Concent 32.2 Red Cell Distribution Width 13.3 Platelet Count 480 H Mean Platelet Volume 10.4 Immature Granulocytes % 0.500 H Neutrophils % 63.9 Lymphocytes % 28.1 Monocytes % 5.4 Eosinophils % 1.1 Basophils % 1.0 Nucleated Red Blood Cells % 0.0 Immature Granulocytes # 0.040 H Neutrophils # 5.1 Lymphocytes # 2.3 Monocytes # 0.4 Eosinophils # 0.1 Basophils # 0.1 Nucleated Red Blood Cells # 0.0 Sodium Level 142 Potassium Level 4.5 Chloride Level 104 Carbon Dioxide Level 27 Anion Gap 11 Blood Urea Nitrogen 11 Creatinine 0.59 L Glucose Level 94 Calcium Level 9.8 Phosphorus Level 4.3 Magnesium Level 2.5 Albumin 4.1 Vancomycin Level Trough 17.2 Medications Medication Current Medications Dextrose/Sodium Chloride 1,000 ml @ 50 mls/hr Q20H IV Last administered on 02/22/19 09:44; Admin Dose 50 MLS/HR; Start 02/11/19 at 01:51 IV Flush (NS 3 ml) 3 ml PER PROTOCOL IV ; Start 02/11/19 at 02:00 Ondansetron HCl (Zofran Inj) 4 mg Q6H PRN IV NAUSEA/VOMITING Last administered on 02/12/19 06:52; Admin Dose 4 MG; Start 02/11/19 at 02:00 Morphine Sulfate (morphine) 4 mg Q4H PRN IV .SEVERE PAIN 7-10 Last administered on 02/14/19 12:27; Admin Dose 4 MG; Start 02/11/19 at 02:00 Famotidine (Pepcid Iv) 20 mg Q12 IV Last administered on 02/22/19 09:40; Admin Dose 20 MG; Start 02/11/19 at 09:00 Docusate Sodium (Colace) 200 mg BID PO Last administered on 02/22/19 09:39; Admin Dose 200 MG; Start 02/18/19 at 21:00 Magnesium Hydroxide (Milk Of Mag) 20 ml BID PO Last administered on 02/22/19 09:39; Admin Dose 20 ML; Start 02/18/19 at 21:00 Acetaminophen/ Hydrocodone Bitart ([place] (325)) 1 tab Q4H PRN PO MODERATE PAIN LEVEL 4-6; Start 02/20/19 at 16:30 Acetaminophen/ Hydrocodone Bitart ([place] (325)) 1 tab Q6H PRN PO PAIN LEVEL 7-10 Last administered on 02/21/19at 05:05; Admin Dose 1 TAB; Start 02/20/19 at 16:30 Levofloxacin (Levaquin) 750 mg DAILY@06 PO ; Start 02/23/19 at 06:00 MARKEL SANFORD February 22, 2019 10:22
--- NOTE | 2019-02-22 12:27 | PN ---
Date/Time of Note Date/Time of Note DATE: 02/22/19 TIME: 12:24 Assessment/Plan VTE Prophylaxis Risk score (from Ns)>0 risk: 0 SCD applied (from Ns): Yes Pharmacological prophylaxis: NA/contraindicated Pharm contraindication: low risk/ambulating Lines/Catheters IV [facility] Type (from [facility] Peripheral IV Urinary Cath still in place: No Assessment/Plan Assessment/Plan 1. Acute microperforated diverticulitis with abscess - drain in place and appreciate IR consultation. Will monitor output. Patient would like drain removed prior to discharge home - Gen surgery on board and appreciate recommendations. - ID on board and appreciate recommendations. Changed to PO Levaquin - blood cultures negative 2. Diarrhea- resolved - cdiff neg 3. Disposition - Continue drain care and if output continues to improve, repeat CT scan Sunday or Sunday and possible d/c accordion drain Result Diagram: 02/22/19 0656 02/22/19 0656 Results 24hrs Laboratory Tests Test 02/22/19 06:56 White Blood Count 8.0 Red Blood Count 4.85 Hemoglobin 13.1 L Hematocrit 40.7 L Mean Corpuscular Volume 83.9 Mean Corpuscular Hemoglobin 27.0 L Mean Corpuscular Hemoglobin Concent 32.2 Red Cell Distribution Width 13.3 Platelet Count 480 H Mean Platelet Volume 10.4 Immature Granulocytes % 0.500 H Neutrophils % 63.9 Segmented Neutrophils % (Manual) 68 Lymphocytes % 28.1 Lymphocytes % (Manual) 16 Reactive Lymphocytes % (Manual) 3 H Monocytes % 5.4 Monocytes % (Manual) 8 Eosinophils % 1.1 Eosinophils % (Manual) 1 Basophils % 1.0 Basophils % (Manual) 1 Plasma Cells % (manual) 3 Nucleated Red Blood Cells % 0.0 Immature Granulocytes # 0.040 H Neutrophils # 5.1 Lymphocytes (Manual) 1.2 Lymphocytes # 2.3 Reactive Lymphocytes # 0.2 H Monocytes # 0.4 Monocytes # (Manual) 0.6 Eosinophils # 0.1 Basophils # 0.1 Basophils # (Manual) 0.0 Plasma Cells # (manual) 0.2 H Nucleated Red Blood Cells # 0.0 Platelet Estimate INCREASED Giant Platelets 1 H Anisocytosis 1+ Microcytosis 1+ Sodium Level 142 Potassium Level 4.5 Chloride Level 104 Carbon Dioxide Level 27 Anion Gap 11 Blood Urea Nitrogen 11 Creatinine 0.59 L Glucose Level 94 Calcium Level 9.8 Phosphorus Level 4.3 Magnesium Level 2.5 Albumin 4.1 Vancomycin Level Trough 17.2 Subjective 24 Hr Interval Summary Free Text/Dictation Patient denies any acute issues. Output from drain improving. No acute overnight events. Exam/Review of Systems Exam Vitals Vital Signs Date Temp Pulse Resp B/P (MAP) Pulse Ox O2 O2 Flow FiO2 Time Delivery Rate 02/22/19 98.2 68 18 118/62 90 Room Air 08:15 (80) Intake and Output 02/21/19 02/21/19 02/22/19 1515:00 23:00 07:00 IntakeIntake Total 900 ml 800 ml 850 ml OutputOutput Total 5 ml 705 ml BalanceBalance 900 ml 795 ml 145 ml Exam General: Patient is laying in bed and answers questions appropriately Neck: Supple Respiratory: Clear to auscultation bilaterally. no wheezing or rhonchi Cardiovascular: S1, S2, regular rate and rhythm, no obvious murmurs Gastrointestinal: soft, nontender to palpation, nondistended, bowel sounds heard. accordion drain in place, scant blood tinged fluid Neurological: Moves all extremities spontaneously Skin: No new skin lesions Results Results 24hrs Laboratory Tests Test 02/22/19 06:56 White Blood Count 8.0 Red Blood Count 4.85 Hemoglobin 13.1 L Hematocrit 40.7 L Mean Corpuscular Volume 83.9 Mean Corpuscular Hemoglobin 27.0 L Mean Corpuscular Hemoglobin Concent 32.2 Red Cell Distribution Width 13.3 Platelet Count 480 H Mean Platelet Volume 10.4 Immature Granulocytes % 0.500 H Neutrophils % 63.9 Segmented Neutrophils % (Manual) 68 Lymphocytes % 28.1 Lymphocytes % (Manual) 16 Reactive Lymphocytes % (Manual) 3 H Monocytes % 5.4 Monocytes % (Manual) 8 Eosinophils % 1.1 Eosinophils % (Manual) 1 Basophils % 1.0 Basophils % (Manual) 1 Plasma Cells % (manual) 3 Nucleated Red Blood Cells % 0.0 Immature Granulocytes # 0.040 H Neutrophils # 5.1 Lymphocytes (Manual) 1.2 Lymphocytes # 2.3 Reactive Lymphocytes # 0.2 H Monocytes # 0.4 Monocytes # (Manual) 0.6 Eosinophils # 0.1 Basophils # 0.1 Basophils # (Manual) 0.0 Plasma Cells # (manual) 0.2 H Nucleated Red Blood Cells # 0.0 Platelet Estimate INCREASED Giant Platelets 1 H Anisocytosis 1+ Microcytosis 1+ Sodium Level 142 Potassium Level 4.5 Chloride Level 104 Carbon Dioxide Level 27 Anion Gap 11 Blood Urea Nitrogen 11 Creatinine 0.59 L Glucose Level 94 Calcium Level 9.8 Phosphorus Level 4.3 Magnesium Level 2.5 Albumin 4.1 Vancomycin Level Trough 17.2 Medications Medication Current Medications Dextrose/Sodium Chloride 1,000 ml @ 50 mls/hr Q20H IV Last administered on 02/22/19 09:44; Admin Dose 50 MLS/HR; Start 02/11/19 at 01:51 IV Flush (NS 3 ml) 3 ml PER PROTOCOL IV ; Start 02/11/19 at 02:00 Ondansetron HCl (Zofran Inj) 4 mg Q6H PRN IV NAUSEA/VOMITING Last administered on 02/12/19 06:52; Admin Dose 4 MG; Start 02/11/19 at 02:00 Morphine Sulfate (morphine) 4 mg Q4H PRN IV .SEVERE PAIN 7-10 Last administered on 02/14/19 12:27; Admin Dose 4 MG; Start 02/11/19 at 02:00 Famotidine (Pepcid Iv) 20 mg Q12 IV Last administered on 02/22/19 09:40; Admin Dose 20 MG; Start 02/11/19 at 09:00 Docusate Sodium (Colace) 200 mg BID PO Last administered on 02/22/19 09:39; Admin Dose 200 MG; Start 02/18/19 at 21:00 Magnesium Hydroxide (Milk Of Mag) 20 ml BID PO Last administered on 02/22/19 09:39; Admin Dose 20 ML; Start 02/18/19 at 21:00 Acetaminophen/ Hydrocodone Bitart ([employer] (5/325)) 1 tab Q4H PRN PO MODERATE PAIN LEVEL 4-6; Start 02/20/19 at 16:30 Acetaminophen/ Hydrocodone Bitart ([employer] (10/325)) 1 tab Q6H PRN PO PAIN LEVEL 7-10 Last administered on 02/21/19 05:05; Admin Dose 1 TAB; Start 02/20/19 at 16:30 Levofloxacin (Levaquin) 750 mg DAILY@06 PO ; Start 02/23/19 at 06:00 DELFINO BULLOCK MD February 22, 2019 12:27
[2019-02-22 14:25] VITALS: BP 120/66; PULSE 70; RESP 18
[2019-02-22 20:00] VITALS: BP 133/77; PULSE 79; RESP 18
[2019-02-23] MEDS: LEVOFLOXACIN 750 MG TABLET PO SCH (06:04)
[2019-02-23 07:29] VITALS: BP 117/66; PULSE 79
[2019-02-23] MEDS: DOCUSATE SODIUM 100 MG CAP PO SCH ×2 (08:47→20:36)
[2019-02-23] MEDS: FAMOTIDINE 20 MG INJ IV SCH ×2 (08:47→20:36)
[2019-02-23] MEDS: MAGNESIUM HYDROXIDE 30ML CUP PO SCH ×2 (08:47→20:36)
--- NOTE | 2019-02-23 11:24 | PN ---
Date/Time of Note Date/Time of Note DATE: 02/23/19 TIME: 11:21 Assessment/Plan VTE Prophylaxis Risk score (from Ns)>0 risk: 1 SCD applied (from Ns): Yes Pharmacological prophylaxis: NA/contraindicated Pharm contraindication: low risk/ambulating Lines/Catheters IV [facility] (from [facility] Peripheral IV Urinary Cath still in place: No Assessment/Plan Assessment/Plan 1. Acute microperforated diverticulitis with abscess s/p percutaneous drainage 02/20 - Drain outpt decreasing daily and will repeat CT scan tomorrow to reassess abscess size. If resolved, will request drain removal - Gen surgery on board and appreciate recommendations. - ID on board and appreciate recommendations. Continue on PO Levaquin - blood cultures negative 2. Diarrhea- resolved - cdiff neg 3. Disposition - Repeat CT scan tomorrow to reevaluate abscess and if resolved, will d/c drain and discharge on PO levaquin Result Diagram: 02/22/19 0656 02/22/19 0656 Subjective 24 Hr Interval Summary Free Text/Dictation Patient doing well and denies any new issues. Drain output decreasing daily. Discussed plan of care and patient understands. Exam/Review of Systems Exam Vitals Vital Signs Date Temp Pulse Resp B/P (MAP) Pulse Ox O2 O2 Flow FiO2 Time Delivery Rate 02/23/19 98.1 79 117/66 99 Room Air 07:29 (83) 02/22/19 18 20:00 Intake and Output 02/22/19 02/22/19 02/23/19 1515:00 23:00 07:00 IntakeIntake Total 680 ml 1720 ml 910 ml OutputOutput Total 600 ml 5 ml 5 ml BalanceBalance 80 ml 1715 ml 905 ml Exam General: Patient is laying in bed and answers questions appropriately Neck: Supple Respiratory: Clear to auscultation bilaterally. no wheezing or rhonchi Cardiovascular: S1, S2, regular rate and rhythm, no obvious murmurs Gastrointestinal: soft, nontender to palpation, nondistended, bowel sounds heard. accordion drain in place, scant blood tinged fluid noted Neurological: Moves all extremities spontaneously Skin: No new skin lesions Medications Medication Current Medications Dextrose/Sodium Chloride 1,000 ml @ 50 mls/hr Q20H IV Last administered on 02/22/19at 18:08; Admin Dose 50 MLS/HR; Start 4/23/19 at 01:51 IV Flush (NS 3 ml) 3 ml PER PROTOCOL IV ; Start 02/11/19 at 02:00 Ondansetron HCl (Zofran Inj) 4 mg Q6H PRN IV NAUSEA/VOMITING Last administered on 02/12/19 06:52; Admin Dose 4 MG; Start 02/11/19 at 02:00 Morphine Sulfate (morphine) 4 mg Q4H PRN IV .SEVERE PAIN 7-10 Last administered on 02/14/19 12:27; Admin Dose 4 MG; Start 02/11/19 at 02:00 Famotidine (Pepcid Iv) 20 mg Q12 IV Last administered on 02/23/19 08:47; Admin Dose 20 MG; Start 02/11/19 at 09:00 Docusate Sodium (Colace) 200 mg BID PO Last administered on 02/23/19 08:47; Admin Dose 200 MG; Start 02/18/19 at 21:00 Magnesium Hydroxide (Milk Of Mag) 20 ml BID PO Last administered on 02/23/19 08:47; Admin Dose 20 ML; Start 02/18/19 at 21:00 Acetaminophen/ Hydrocodone Bitart ([place] (5/325)) 1 tab Q4H PRN PO MODERATE PAIN LEVEL 4-6; Start 02/20/19 at 16:30 Acetaminophen/ Hydrocodone Bitart ([place] (10/325)) 1 tab Q6H PRN PO PAIN LEVEL 7-10 Last administered on 02/21/19 05:05; Admin Dose 1 TAB; Start 02/20/19 at 16:30 Levofloxacin (Levaquin) 750 mg DAILY@06 PO Last administered on 02/23/19 06:04; Admin Dose 750 MG; Start 02/23/19 at 06:00 Ampicillin 50 ml @ 100 mls/hr Q8 IVPB ; Start 02/23/19 at 14:00 DELFINO BULLOCK MD February 23, 2019 11:24
--- NOTE | 2019-02-23 11:27 | CONS ---
Consultation Date/Type/Reason Admit Date/Time Feb 11, 2019 at 00:43 Initial Consult Date 02/11/19 Type of Consult SUBJECTIVE: Pt is awake, alert. Resting in bed. NO fevers. s/p CT guided drainage 02/20/19 of abscess. VS: stable. T: 98.2 LABS: WBC-8.0 Antimicrobials: Levaquin and Ampicillin MICROBIOLOGY: Blood Cx are negative. Wound culture: GRAM STAIN Final POLYMORPH. LEUKOCYTE 1+ GRAM POSITIVE COCCI RARE WOUND CULTURE Preliminary Organism 1 ESCHERICHIA COLI QUANTITY SCANT GROWTH Organism 2 GRAM NEGATIVE [place] QUANTITY SCANT GROWTH Organism 3 ENTEROCOCCUS SPECIES QUANTITY ISOLATED FROM BROTH ONLY GNROD ID RAOULTELLA PLANTICOLA E COLI GNR ENT SPS M.I.C. RX M.I.C. RX M.I.C. RX --------- --- --------- --- --------- --- AMPICILLIN <=2 S <=2 S CEFAZOLIN <=4 S R CEFOTAXIME S S CIPROFLOXACIN <=0.25 S <=0.25 S GENTAMICIN <=1 S <=1 S LEVOFLOXACIN <=0.12 S <=0.12 S PENICILLIN-G 4 S VANCOMYCIN 1 S TOBRAMYCIN <=1 S <=1 S TRIMETHOPRIM/SULFAMETHOXAZOLE <=20 S <=20 S Physical examination: GEN: Well-developed young man, who is alert in no distress HENT: head atraumatic normocephalic, neck is supple PULM: chest rise symmetrical, breath sounds clear Heart: S1-S2 Abdomen: soft, left-sided pigtail catheter present with bloody drainage, small amount Assessment: 1. Systemic inflammatory response syndrome 2. Perforated sigmoid diverticulitis/abscesses, status post CT-guided drainage 3. S/p diarrhea==> neg C. difficile Plan: Remains stable. Drain intact. Final wound cx noted. Start PO Levaquin and IV Ampicillin. Surgery following. Date/Time of Note DATE: 02/23/19 TIME: 11:25 Exam/Review of Systems Exam Vitals Vital Signs Date Temp Pulse Resp B/P (MAP) Pulse Ox O2 O2 Flow FiO2 Time Delivery Rate 02/23/19 98.1 79 117/66 99 Room Air 07:29 (83) 02/22/19 18 20:00 Intake and Output 02/22/19 02/22/19 02/23/19 1515:00 23:00 07:00 IntakeIntake Total 680 ml 1720 ml 910 ml OutputOutput Total 600 ml 5 ml 5 ml BalanceBalance 80 ml 1715 ml 905 ml Results Result Diagram: 02/22/19 0656 02/22/19 0656 Medications Medication Current Medications Dextrose/Sodium Chloride 1,000 ml @ 50 mls/hr Q20H IV Last administered on 02/22/19 18:08; Admin Dose 50 MLS/HR; Start 02/11/19 at 01:51 IV Flush (NS 3 ml) 3 ml PER PROTOCOL IV ; Start 02/11/19 at 02:00 Ondansetron HCl (Zofran Inj) 4 mg Q6H PRN IV NAUSEA/VOMITING Last administered on 02/12/19 06:52; Admin Dose 4 MG; Start 02/11/19 at 02:00 Morphine Sulfate (morphine) 4 mg Q4H PRN IV .SEVERE PAIN 7-10 Last administered on 02/14/19 12:27; Admin Dose 4 MG; Start 02/11/19 at 02:00 Famotidine (Pepcid Iv) 20 mg Q12 IV Last administered on 02/23/19 08:47; Admin Dose 20 MG; Start 02/11/19 at 09:00 Docusate Sodium (Colace) 200 mg BID PO Last administered on 02/23/19 08:47; Admin Dose 200 MG; Start 02/18/19 at 21:00 Magnesium Hydroxide (Milk Of Mag) 20 ml BID PO Last administered on 02/23/19 08:47; Admin Dose 20 ML; Start 02/18/19 at 21:00 Acetaminophen/ Hydrocodone Bitart ([place] (5/325)) 1 tab Q4H PRN PO MODERATE PAIN LEVEL 4-6; Start 02/20/19 at 16:30 Acetaminophen/ Hydrocodone Bitart ([place] ()) 1 tab Q6H PRN PO PAIN LEVEL 7-10 Last administered on 02/21/19at 05:05; Admin Dose 1 TAB; Start 02/20/19 at 16:30 Levofloxacin (Levaquin) 750 mg DAILY@06 PO Last administered on 02/23/19at 06:04; Admin Dose 750 MG; Start 02/23/19 at 06:00 Ampicillin 50 ml @ 100 mls/hr Q8 IVPB ; Start 02/23/19 at 14:00 MARKEL SANFORD February 23, 2019 11:27
[2019-02-23] MEDS: AMPICILLIN 1 GM/NS (PMX) 50 ML IVPB SCH ×2 (13:36→21:27)
[2019-02-23 16:46] VITALS: BP 112/59; PULSE 71; RESP 20
[2019-02-23] MEDS: DEXTROSE 5%-0.45% NACL 1,000 ML IV SCH (17:42)
[2019-02-23 19:55] VITALS: BP 118/71; PULSE 76; RESP 20
[2019-02-24 01:50] VITALS: BP 121/69; PULSE 78; RESP 18
[2019-02-24] MEDS: LEVOFLOXACIN 750 MG TABLET PO SCH ×2 (05:34→08:37)
[2019-02-24] MEDS: AMPICILLIN 1 GM/NS (PMX) 50 ML IVPB SCH ×3 (05:34→21:42)
[2019-02-24 07:35] VITALS: BP 127/74; PULSE 82; RESP 18
[2019-02-24] MEDS: MAGNESIUM HYDROXIDE 30ML CUP PO SCH ×2 (08:37→21:41)
[2019-02-24] MEDS: FAMOTIDINE 20 MG INJ IV SCH (08:38)
[2019-02-24] MEDS: DOCUSATE SODIUM 100 MG CAP PO SCH ×2 (08:38→21:42)
--- NOTE | 2019-02-24 13:53 | CONS ---
Assessment/Plan Assessment/Plan Hospital Course (Demo Recall) Alert, feels good, no fevers overnight Fluid culture growing E. coli and enterococcus species Antimicrobials: Oral Levaquin, IV ampicillin Physical examination: Well-developed young man who is alert in no distress head atraumatic normocephalic neck is supple chest rise symmetrical breath sounds clear heart: S1-S2 abdomen soft, left-sided pigtail catheter present with bloody drainage, small amount Assessment: 1. Systemic inflammatory response syndrome 2. Perforated sigmoid diverticulitis/abscesses, status post CT-guided drainage 3. S/p diarrhea==> neg C. difficile Plan: Remains stable, s/p CT guided drainage 02/20/19, continue abx, f/u surgical rec-s Consultation Date/Type/Reason Admit Date/Time Feb 11, 2019 at 00:43 Initial Consult Date 02/11/19 Type of Consult id Date/Time of Note DATE: 02/24/19 TIME: 13:53 Exam/Review of Systems Exam Vitals Vital Signs Date Temp Pulse Resp B/P (MAP) Pulse Ox O2 O2 Flow FiO2 Time Delivery Rate 02/24/19 98.0 82 18 127/74 93 Room Air 07:35 (91) Intake and Output 02/23/19 02/23/19 02/24/19 1515:00 23:00 07:00 IntakeIntake Total 490 ml 1200 ml 1010 ml OutputOutput Total 5 ml 500 ml BalanceBalance 490 ml 1195 ml 510 ml Results Result Diagram: 02/24/19 0437 02/24/19 0437 Results 24hrs Laboratory Tests Test 02/24/19 04:37 White Blood Count 7.0 Red Blood Count 5.08 Hemoglobin 13.8 L Hematocrit 42.0 Mean Corpuscular Volume 82.7 Mean Corpuscular Hemoglobin 27.2 L Mean Corpuscular Hemoglobin Concent 32.9 Red Cell Distribution Width 13.3 Platelet Count 511 H Mean Platelet Volume 10.6 H Immature Granulocytes % 0.300 Neutrophils % 54.6 Segmented Neutrophils % (Manual) 51 Band Neutrophils % (Manual) 3 Lymphocytes % 32.1 Lymphocytes % (Manual) 31 Reactive Lymphocytes % (Manual) 4 H Monocytes % 10.4 Monocytes % (Manual) 5 Eosinophils % 1.7 Eosinophils % (Manual) 2 Basophils % 0.9 Basophils % (Manual) 2 Promyelocytes % (Manual) 1 H Plasma Cells % (manual) 1 Nucleated Red Blood Cells % 0.0 Immature Granulocytes # 0.020 Neutrophils # 3.8 Neutrophils # (Manual) 3.6 Band Neutrophils # 0.2 Lymphocytes (Manual) 2.1 Lymphocytes # 2.2 Reactive Lymphocytes # 0.2 H Monocytes # 0.7 Monocytes # (Manual) 0.3 Eosinophils # 0.1 Basophils # 0.1 Basophils # (Manual) 0.1 H Promyelocytes # 0.0 Plasma Cells # (manual) 0.0 Nucleated Red Blood Cells # 0.0 Platelet Estimate INCREASED Giant Platelets 4 H Poikilocytosis 1+ Anisocytosis 1+ Sodium Level 142 Potassium Level 4.4 Chloride Level 107 Carbon Dioxide Level 25 Anion Gap 10 Blood Urea Nitrogen 14 Creatinine 0.61 Glucose Level 94 Calcium Level 9.6 Phosphorus Level 5.1 H Magnesium Level 2.4 Albumin 4.1 Medications Medication Current Medications Dextrose/Sodium Chloride 1,000 ml @ 50 mls/hr Q20H IV Last administered on 02/23/19 17:42; Admin Dose 50 MLS/HR; Start 02/11/19 at 01:51 IV Flush (NS 3 ml) 3 ml PER PROTOCOL IV ; Start 02/11/19 at 02:00 Ondansetron HCl (Zofran Inj) 4 mg Q6H PRN IV NAUSEA/VOMITING Last administered on 02/12/19 06:52; Admin Dose 4 MG; Start 02/11/19 at 02:00 Morphine Sulfate (morphine) 4 mg Q4H PRN IV .SEVERE PAIN 7-10 Last administered on 02/14/19 12:27; Admin Dose 4 MG; Start 02/11/19 at 02:00 Docusate Sodium (Colace) 200 mg BID PO Last administered on 02/24/19at 08:38; Admin Dose 200 MG; Start 02/18/19 at 21:00 Magnesium Hydroxide (Milk Of Mag) 20 ml BID PO Last administered on 02/24/19 08:37; Admin Dose 20 ML; Start 02/18/19 at 21:00 Acetaminophen/ Hydrocodone Bitart ([place] (5/325)) 1 tab Q4H PRN PO MODERATE PAIN LEVEL 4-6; Start 02/20/19 at 16:30 Acetaminophen/ Hydrocodone Bitart ([place] (10/325)) 1 tab Q6H PRN PO PAIN LEVEL 7-10 Last administered on 02/21/19at 05:05; Admin Dose 1 TAB; Start 02/20/19 at 16:30 Levofloxacin (Levaquin) 750 mg DAILY@06 PO Last administered on 02/24/19at 08:37; Admin Dose 750 MG; Start 02/23/19 at 06:00 Ampicillin 50 ml @ 100 mls/hr Q8 IVPB Last administered on 02/24/19at 05:34; Admin Dose 100 MLS/HR; Start 02/23/19 at 14:00 Famotidine (Pepcid) 20 mg BID PO ; Start 02/24/19 at 21:00 MINDA CANTRELL NP February 24, 2019 13:53
--- NOTE | 2019-02-24 14:49 | PN ---
Date/Time of Note Date/Time of Note DATE: 02/24/19 TIME: 14:48 Assessment/Plan Lines/Catheters IV Catheter Type (from Nrs): Peripheral IV [place] in Place (from Nrs): No Subjective 24 Hr Interval Summary Patient is doing much better. He is afebrile, no complaints, tolerated diet, white count is normal. Minimal amount of purulent drainage through the catheter. Patient is awaiting CT scan today and possible drain removal. Exam/Review of Systems Vital Signs Vitals Vital Signs Date Temp Pulse Resp B/P (MAP) Pulse Ox O2 O2 Flow FiO2 Time Delivery Rate 02/24/19 98.0 82 18 127/74 93 Room Air 07:35 (91) Intake and Output 02/23/19 02/23/19 02/24/19 1515:00 23:00 07:00 IntakeIntake Total 490 ml 1200 ml 1010 ml OutputOutput Total 5 ml 500 ml BalanceBalance 490 ml 1195 ml 510 ml Results Result Diagram: 02/24/19 0437 02/24/19 0437 CARMEN CHAIREZ MD February 24, 2019 14:49
[2019-02-24 14:50] VITALS: BP 120/76; PULSE 72; RESP 18
[2019-02-24] MEDS: DEXTROSE 5%-0.45% NACL 1,000 ML IV SCH (16:24)
--- NOTE | 2019-02-24 17:59 | PN ---
Date/Time of Note Date/Time of Note DATE: 02/24/19 TIME: 17:57 Assessment/Plan VTE Prophylaxis Risk score (from Ns)>0 risk: 1 SCD applied (from [facility] [place]): Yes SCD contraindicated: low risk/ambulating Pharmacological prophylaxis: LMWH Lines/Catheters IV Catheter Type (from [facility]): Peripheral IV Urinary Cath still in place: No Assessment/Plan Hospital Course Assessment and plan 1. Perforated sigmoid diverticulitis, stable finish antibiotics. Drain care. appreciate surgical assistance 2. Peritonitis 3. Sirs/ sepsis? 4. History of nephrolithiasis Subjective: Events noted Objective: Vital signs stable Physical exam No pallor Regular Clear Bs+ nt nd; no RRG drain CDI No edema Result Diagram: 02/24/1943602/24/19436 Results 24hrs Laboratory Tests Test 02/24/19 04:37 White Blood Count 7.0 Red Blood Count 5.08 Hemoglobin 13.8 L Hematocrit 42.0 Mean Corpuscular Volume 82.7 Mean Corpuscular Hemoglobin 27.2 L Mean Corpuscular Hemoglobin Concent 32.9 Red Cell Distribution Width 13.3 Platelet Count 511 H Mean Platelet Volume 10.6 H Immature Granulocytes % 0.300 Neutrophils % 54.6 Segmented Neutrophils % (Manual) 51 Band Neutrophils % (Manual) 3 Lymphocytes % 32.1 Lymphocytes % (Manual) 31 Reactive Lymphocytes % (Manual) 4 H Monocytes % 10.4 Monocytes % (Manual) 5 Eosinophils % 1.7 Eosinophils % (Manual) 2 Basophils % 0.9 Basophils % (Manual) 2 Promyelocytes % (Manual) 1 H Plasma Cells % (manual) 1 Nucleated Red Blood Cells % 0.0 Immature Granulocytes # 0.020 Neutrophils # 3.8 Neutrophils # (Manual) 3.6 Band Neutrophils # 0.2 Lymphocytes (Manual) 2.1 Lymphocytes # 2.2 Reactive Lymphocytes # 0.2 H Monocytes # 0.7 Monocytes # (Manual) 0.3 Eosinophils # 0.1 Basophils # 0.1 Basophils # (Manual) 0.1 H Promyelocytes # 0.0 Plasma Cells # (manual) 0.0 Nucleated Red Blood Cells # 0.0 Platelet Estimate INCREASED Giant Platelets 4 H Poikilocytosis 1+ Anisocytosis 1+ Sodium Level 142 Potassium Level 4.4 Chloride Level 107 Carbon Dioxide Level 25 Anion Gap 10 Blood Urea Nitrogen 14 Creatinine 0.61 Glucose Level 94 Calcium Level 9.6 Phosphorus Level 5.1 H Magnesium Level 2.4 Albumin 4.1 Exam/Review of Systems Exam Vitals Vital Signs Date Temp Pulse Resp B/P (MAP) Pulse Ox O2 O2 Flow FiO2 Time Delivery Rate 02/24/19 98.2 72 18 120/76 98 Room Air 14:50 (91) Intake and Output 02/23/19 02/23/19 02/24/19 1414:59 22:59 06:59 IntakeIntake Total 490 ml 1200 ml 1010 ml OutputOutput Total 5 ml 500 ml BalanceBalance 490 ml 1195 ml 510 ml Results Results 24hrs Laboratory Tests Test 02/24/19 04:37 White Blood Count 7.0 Red Blood Count 5.08 Hemoglobin 13.8 L Hematocrit 42.0 Mean Corpuscular Volume 82.7 Mean Corpuscular Hemoglobin 27.2 L Mean Corpuscular Hemoglobin Concent 32.9 Red Cell Distribution Width 13.3 Platelet Count 511 H Mean Platelet Volume 10.6 H Immature Granulocytes % 0.300 Neutrophils % 54.6 Segmented Neutrophils % (Manual) 51 Band Neutrophils % (Manual) 3 Lymphocytes % 32.1 Lymphocytes % (Manual) 31 Reactive Lymphocytes % (Manual) 4 H Monocytes % 10.4 Monocytes % (Manual) 5 Eosinophils % 1.7 Eosinophils % (Manual) 2 Basophils % 0.9 Basophils % (Manual) 2 Promyelocytes % (Manual) 1 H Plasma Cells % (manual) 1 Nucleated Red Blood Cells % 0.0 Immature Granulocytes # 0.020 Neutrophils # 3.8 Neutrophils # (Manual) 3.6 Band Neutrophils # 0.2 Lymphocytes (Manual) 2.1 Lymphocytes # 2.2 Reactive Lymphocytes # 0.2 H Monocytes # 0.7 Monocytes # (Manual) 0.3 Eosinophils # 0.1 Basophils # 0.1 Basophils # (Manual) 0.1 H Promyelocytes # 0.0 Plasma Cells # (manual) 0.0 Nucleated Red Blood Cells # 0.0 Platelet Estimate INCREASED Giant Platelets 4 H Poikilocytosis 1+ Anisocytosis 1+ Sodium Level 142 Potassium Level 4.4 Chloride Level 107 Carbon Dioxide Level 25 Anion Gap 10 Blood Urea Nitrogen 14 Creatinine 0.61 Glucose Level 94 Calcium Level 9.6 Phosphorus Level 5.1 H Magnesium Level 2.4 Albumin 4.1 Medications Medication Current Medications Dextrose/Sodium Chloride 1,000 ml @ 50 mls/hr Q20H IV Last administered on 02/24/19 16:24; Admin Dose 50 MLS/HR; Start 02/11/19 at 01:51 IV Flush (NS 3 ml) 3 ml PER PROTOCOL IV ; Start 02/11/19 at 02:00 Ondansetron HCl (Zofran Inj) 4 mg Q6H PRN IV NAUSEA/VOMITING Last administered on 02/12/19 06:52; Admin Dose 4 MG; Start 02/11/19 at 02:00 Morphine Sulfate (morphine) 4 mg Q4H PRN IV .SEVERE PAIN 7-10 Last administered on 02/14/19 12:27; Admin Dose 4 MG; Start 02/11/19 at 02:00 Docusate Sodium (Colace) 200 mg BID PO Last administered on 02/24/19 08:38; Admin Dose 200 MG; Start 02/18/19 at 21:00 Magnesium Hydroxide (Milk Of Mag) 20 ml BID PO Last administered on 02/24/19 08:37; Admin Dose 20 ML; Start 02/18/19 at 21:00 Acetaminophen/ Hydrocodone Bitart ([place] (5/325)) 1 tab Q4H PRN PO MODERATE PAIN LEVEL 4-6; Start 02/20/19 at 16:30 Acetaminophen/ Hydrocodone Bitart ([place] (10/325)) 1 tab Q6H PRN PO PAIN LEVEL 7-10 Last administered on 02/21/19 05:05; Admin Dose 1 TAB; Start 02/20/19 at 16:30 Levofloxacin (Levaquin) 750 mg DAILY@06 PO Last administered on 02/24/19 08:37; Admin Dose 750 MG; Start 02/23/19 at 06:00 Ampicillin 50 ml @ 100 mls/hr Q8 IVPB Last administered on 02/24/19 14:23; Admin Dose 100 MLS/HR; Start 02/23/19 at 14:00 Famotidine (Pepcid) 20 mg BID PO ; Start 02/24/19 at 21:00 LAY JOSÉ MD February 24, 2019 17:59
[2019-02-24 19:32] VITALS: BP 111/69; PULSE 67; RESP 16
[2019-02-24] MEDS: LACTOBACILLUS RHAMNOSUS CAP PO SCH (21:42)
[2019-02-24] MEDS: FAMOTIDINE 20 MG TAB PO SCH (21:42)
[2019-02-25 01:55] VITALS: BP 107/75; PULSE 73; RESP 18
[2019-02-25] MEDS: LEVOFLOXACIN 750 MG TABLET PO SCH (05:09)
[2019-02-25] MEDS: AMPICILLIN 1 GM/NS (PMX) 50 ML IVPB SCH ×3 (05:10→21:55)
[2019-02-25] MEDS: MAGNESIUM HYDROXIDE 30ML CUP PO SCH ×2 (08:17→20:19)
[2019-02-25] MEDS: LACTOBACILLUS RHAMNOSUS CAP PO SCH ×2 (08:18→20:19)
[2019-02-25] MEDS: DOCUSATE SODIUM 100 MG CAP PO SCH ×2 (08:18→20:19)
[2019-02-25] MEDS: FAMOTIDINE 20 MG TAB PO SCH ×2 (08:19→20:19)
[2019-02-25] MEDS: ENOXAPARIN 40 MG/0.4 ML SYG SC SCH (08:21)
[2019-02-25 09:14] VITALS: BP 116/67; PULSE 76; RESP 19
--- NOTE | 2019-02-25 11:35 | CONS ---
Assessment/Plan Assessment/Plan Hospital Course (Demo Recall) Alert, feels good, no fevers overnight Fluid culture growing E. coli and enterococcus species Antimicrobials: Oral Levaquin, IV ampicillin Physical examination: Well-developed young man who is alert in no distress head atraumatic normocephalic neck is supple chest rise symmetrical breath sounds clear heart: S1-S2 abdomen soft, left-sided pigtail catheter present with bloody drainage, small amount Assessment: 1. Systemic inflammatory response syndrome 2. Perforated sigmoid diverticulitis/abscesses, status post CT-guided drainage 3. S/p diarrhea==> neg C. difficile Plan: Remains stable, s/p CT guided drainage 02/20/19, continue abx, f/u repeat CT abdomen Consultation Date/Type/Reason Admit Date/Time Feb 11, 2019 at 00:43 Initial Consult Date 02/11/19 Type of Consult id Date/Time of Note DATE: 02/25/19 TIME: 11:35 Exam/Review of Systems Exam Vitals Vital Signs Date Temp Pulse Resp B/P (MAP) Pulse Ox O2 O2 Flow FiO2 Time Delivery Rate 02/25/19 98.7 76 19 116/67 99 Room Air 09:14 (83) Intake and Output 02/24/19 02/24/19 02/25/19 1515:00 23:00 07:00 IntakeIntake Total 650 ml 800 ml 1100 ml OutputOutput Total 5 ml BalanceBalance 650 ml 800 ml 1095 ml Results Result Diagram: 02/25/19 0458 02/25/19 0458 Results 24hrs Laboratory Tests Test 02/25/19 04:58 White Blood Count 5.7 Red Blood Count 4.90 Hemoglobin 13.2 L Hematocrit 41.1 L Mean Corpuscular Volume 83.9 Mean Corpuscular Hemoglobin 26.9 L Mean Corpuscular Hemoglobin Concent 32.1 Red Cell Distribution Width 13.2 Platelet Count 506 H Mean Platelet Volume 10.8 H Immature Granulocytes % 0.400 Neutrophils % 52.2 Lymphocytes % 31.7 Monocytes % 12.0 H Eosinophils % 3.0 Basophils % 0.7 Nucleated Red Blood Cells % 0.0 Immature Granulocytes # 0.020 Neutrophils # 3.0 Lymphocytes # 1.8 Monocytes # 0.7 Eosinophils # 0.2 Basophils # 0.0 Nucleated Red Blood Cells # 0.0 Sodium Level 144 Potassium Level 4.0 Chloride Level 106 Carbon Dioxide Level 27 Anion Gap 11 Blood Urea Nitrogen 14 Creatinine 0.59 L Est Glomerular Filtrat Rate mL/min > 60 Glucose Level 93 Calcium Level 9.5 Phosphorus Level 5.1 H Magnesium Level 2.3 Total Bilirubin 0.2 Direct Bilirubin 0.00 Indirect Bilirubin 0.2 Aspartate Amino Transf (AST/SGOT) 47 H Alanine Aminotransferase (ALT/SGPT) 71 H Alkaline Phosphatase 84 Total Protein 7.8 Albumin 4.0 Globulin 3.80 H Albumin/Globulin Ratio 1.05 Thyroid Stimulating Hormone (TSH) 1.780 Medications Medication Current Medications Dextrose/Sodium Chloride 1,000 ml @ 50 mls/hr Q20H IV Last administered on 02/24/19 16:24; Admin Dose 50 MLS/HR; Start 02/11/19 at 01:51 IV Flush (NS 3 ml) 3 ml PER PROTOCOL IV ; Start 02/11/19 at 02:00 Ondansetron HCl (Zofran Inj) 4 mg Q6H PRN IV NAUSEA/VOMITING Last administered on 02/12/19 06:52; Admin Dose 4 MG; Start 02/11/19 at 02:00 Morphine Sulfate (morphine) 4 mg Q4H PRN IV .SEVERE PAIN 7-10 Last administered on 02/14/19 12:27; Admin Dose 4 MG; Start 02/11/19 at 02:00 Docusate Sodium (Colace) 200 mg BID PO Last administered on 02/25/19 08:18; Admin Dose 200 MG; Start 02/18/19 at 21:00 Magnesium Hydroxide (Milk Of Mag) 20 ml BID PO Last administered on 02/25/19 08 :17; Admin Dose 20 ML; Start 02/18/19 at 21:00 Acetaminophen/ Hydrocodone Bitart ([place] (5/325)) 1 tab Q4H PRN PO MODERATE PAIN LEVEL 4-6; Start 02/20/19 at 16:30 Acetaminophen/ Hydrocodone Bitart ([place] (10/325)) 1 tab Q6H PRN PO PAIN LEVEL 7-10 Last administered on 02/21/19 05:05; Admin Dose 1 TAB; Start 02/20/19 at 16:30 Levofloxacin (Levaquin) 750 mg DAILY@06 PO Last administered on 02/25/19 05:09; Admin Dose 750 MG; Start 02/23/19 at 06:00 Ampicillin 50 ml @ 100 mls/hr Q8 IVPB Last administered on 02/25/19at 05:10; Admin Dose 100 MLS/HR; Start 02/23/19 at 14:00 Famotidine (Pepcid) 20 mg BID PO Last administered on 02/25/19at 08:19; Admin Dose 20 MG; Start 02/24/19 at 21:00 Lactobacillus Acidophilus/ Rhamnosus (Culturelle) 1 cap BID PO Last administered on 02/25/19at 08:18; Admin Dose 1 CAP; Start 02/24/19 at 21:00 Enoxaparin Sodium (Lovenox) 40 mg DAILY SC Last administered on 02/25/19at 08:21; Admin Dose 40 MG; Start 02/25/19 at 09:00 MINDA CANTRELL NP February 25, 2019 11:35
[2019-02-25 15:29] VITALS: BP 120/72; PULSE 72; RESP 18
[2019-02-25] MEDS ORDERED: SOD CHLORIDE 0.9% 100 ML ONE (16:00)
[2019-02-25] MEDS ORDERED: IOHEXOL 300MG/ML 150 ML BTL ONE (16:00)
--- NOTE | 2019-02-25 16:04 | PN ---
Date/Time of Note Date/Time of Note DATE: 02/25/19 TIME: 16:03 Assessment/Plan VTE Prophylaxis Risk score (from Ns)>0 risk: 1 SCD applied (from Ns): Yes SCD contraindicated: low risk/ambulating Pharmacological prophylaxis: LMWH Lines/Catheters IV Catheter Type (from [facility]): [place] Urinary Cath still in place: No Assessment/Plan Hospital Course Assessment and plan 1. Perforated sigmoid diverticulitis, stable finish antibiotics. Drain care. appreciate surgical assistance 2. Peritonitis 3. Sirs/ sepsis? 4. History of nephrolithiasis S: 02/24 events noted /: No fever O: Vital signs stable PE No pallor Regular Clear Bs+ nt nd; no RRG drain CDI No edema Result Diagram: 02/25/198 02/25/198 Results 24hrs Laboratory Tests Test 02/25/19 04:58 White Blood Count 5.7 Red Blood Count 4.90 Hemoglobin 13.2 L Hematocrit 41.1 L Mean Corpuscular Volume 83.9 Mean Corpuscular Hemoglobin 26.9 L Mean Corpuscular Hemoglobin Concent 32.1 Red Cell Distribution Width 13.2 Platelet Count 506 H Mean Platelet Volume 10.8 H Immature Granulocytes % 0.400 Neutrophils % 52.2 Lymphocytes % 31.7 Monocytes % 12.0 H Eosinophils % 3.0 Basophils % 0.7 Nucleated Red Blood Cells % 0.0 Immature Granulocytes # 0.020 Neutrophils # 3.0 Lymphocytes # 1.8 Monocytes # 0.7 Eosinophils # 0.2 Basophils # 0.0 Nucleated Red Blood Cells # 0.0 Sodium Level 144 Potassium Level 4.0 Chloride Level 106 Carbon Dioxide Level 27 Anion Gap 11 Blood Urea Nitrogen 14 Creatinine 0.59 L Est Glomerular Filtrat Rate mL/min > 60 Glucose Level 93 Calcium Level 9.5 Phosphorus Level 5.1 H Magnesium Level 2.3 Total Bilirubin 0.2 Direct Bilirubin 0.00 Indirect Bilirubin 0.2 Aspartate Amino Transf (AST/SGOT) 47 H Alanine Aminotransferase (ALT/SGPT) 71 H Alkaline Phosphatase 84 Total Protein 7.8 Albumin 4.0 Globulin 3.80 H Albumin/Globulin Ratio 1.05 Thyroid Stimulating Hormone (TSH) 1.780 Exam/Review of Systems Exam Vitals Vital Signs Date Temp Pulse Resp B/P (MAP) Pulse Ox O2 O2 Flow FiO2 Time Delivery Rate 5/7/19 98.2 72 18 120/72 98 Room Air 15:29 (88) Intake and Output 02/24/19 02/24/19 02/25/19 1515:00 23:00 07:00 IntakeIntake Total 650 ml 800 ml 1100 ml OutputOutput Total 5 ml BalanceBalance 650 ml 800 ml 1095 ml Results Results 24hrs Laboratory Tests Test 02/25/19 04:58 White Blood Count 5.7 Red Blood Count 4.90 Hemoglobin 13.2 L Hematocrit 41.1 L Mean Corpuscular Volume 83.9 Mean Corpuscular Hemoglobin 26.9 L Mean Corpuscular Hemoglobin Concent 32.1 Red Cell Distribution Width 13.2 Platelet Count 506 H Mean Platelet Volume 10.8 H Immature Granulocytes % 0.400 Neutrophils % 52.2 Lymphocytes % 31.7 Monocytes % 12.0 H Eosinophils % 3.0 Basophils % 0.7 Nucleated Red Blood Cells % 0.0 Immature Granulocytes # 0.020 Neutrophils # 3.0 Lymphocytes # 1.8 Monocytes # 0.7 Eosinophils # 0.2 Basophils # 0.0 Nucleated Red Blood Cells # 0.0 Sodium Level 144 Potassium Level 4.0 Chloride Level 106 Carbon Dioxide Level 27 Anion Gap 11 Blood Urea Nitrogen 14 Creatinine 0.59 L Est Glomerular Filtrat Rate mL/min > 60 Glucose Level 93 Calcium Level 9.5 Phosphorus Level 5.1 H Magnesium Level 2.3 Total Bilirubin 0.2 Direct Bilirubin 0.00 Indirect Bilirubin 0.2 Aspartate Amino Transf (AST/SGOT) 47 H Alanine Aminotransferase (ALT/SGPT) 71 H Alkaline Phosphatase 84 Total Protein 7.8 Albumin 4.0 Globulin 3.80 H Albumin/Globulin Ratio 1.05 Thyroid Stimulating Hormone (TSH) 1.780 Medications Medication Current Medications Dextrose/Sodium Chloride 1,000 ml @ 50 mls/hr Q20H IV Last administered on 02/24/19at 16:24; Admin Dose 50 MLS/HR; Start 02/11/19 at 01:51 IV Flush (NS 3 ml) 3 ml PER PROTOCOL IV ; Start 02/11/19 at 02:00 Ondansetron HCl (Zofran Inj) 4 mg Q6H PRN IV NAUSEA/VOMITING Last administered on 02/12/19at 06:52; Admin Dose 4 MG; Start 02/11/19 at 02:00 Morphine Sulfate (morphine) 4 mg Q4H PRN IV .SEVERE PAIN 7-10 Last administered on 02/14/19 12:27; Admin Dose 4 MG; Start 02/11/19 at 02:00 Docusate Sodium (Colace) 200 mg BID PO Last administered on 02/25/19 08:18; Admin Dose 200 MG; Start 02/18/19 at 21:00 Magnesium Hydroxide (Milk Of Mag) 20 ml BID PO Last administered on 02/25/19 08:17; Admin Dose 20 ML; Start 02/18/19 at 21:00 Acetaminophen/ Hydrocodone Bitart ([place] (5/325)) 1 tab Q4H PRN PO MODERATE PAIN LEVEL 4-6; Start 02/20/19 at 16:30 Acetaminophen/ Hydrocodone Bitart ([place] (10/325)) 1 tab Q6H PRN PO PAIN LEVEL 7-10 Last administered on 02/21/19 05:05; Admin Dose 1 TAB; Start 02/20/19 at 16:30 Levofloxacin (Levaquin) 750 mg DAILY@06 PO Last administered on 02/25/19 05:09; Admin Dose 750 MG; Start 02/23/19 at 06:00 Ampicillin 50 ml @ 100 mls/hr Q8 IVPB Last administered on 02/25/19 13:32; Admin Dose 100 MLS/HR; Start 02/23/19 at 14:00 Famotidine (Pepcid) 20 mg BID PO Last administered on 02/25/19 08:19; Admin Dose 20 MG; Start 02/24/19 at 21:00 Lactobacillus Acidophilus/ Rhamnosus (Culturelle) 1 cap BID PO Last administered on 02/25/19 08:18; Admin Dose 1 CAP; Start 02/24/19 at 21:00 Enoxaparin Sodium (Lovenox) 40 mg DAILY SC Last administered on 02/25/19 08:21; Admin Dose 40 MG; Start 02/25/19 at 09:00 LAY JOSÉ MD February 25, 2019 16:04
[2019-02-25] MEDS: DEXTROSE 5%-0.45% NACL 1,000 ML IV SCH (17:10)
[2019-02-25 20:08] VITALS: BP 119/66; PULSE 80; RESP 18
[2019-02-26 01:41] VITALS: BP 127/69; PULSE 59; RESP 16
[2019-02-26] MEDS: LEVOFLOXACIN 750 MG TABLET PO SCH (05:27)
[2019-02-26] MEDS: AMPICILLIN 1 GM/NS (PMX) 50 ML IVPB SCH ×3 (05:28→20:53)
[2019-02-26 08:00] VITALS: BP 120/66; PULSE 63; RESP 18
[2019-02-26] MEDS: FAMOTIDINE 20 MG TAB PO SCH ×2 (08:25→20:55)
[2019-02-26] MEDS: LACTOBACILLUS RHAMNOSUS CAP PO SCH ×2 (08:25→20:55)
[2019-02-26] MEDS: MAGNESIUM HYDROXIDE 30ML CUP PO SCH ×2 (08:26→20:55)
[2019-02-26] MEDS: DOCUSATE SODIUM 100 MG CAP PO SCH ×2 (08:28→20:54)
[2019-02-26] MEDS: ENOXAPARIN 40 MG/0.4 ML SYG SC SCH (08:28)
[2019-02-26] MEDS: DEXTROSE 5%-0.45% NACL 1,000 ML IV SCH ×2 (12:36→18:28)
--- NOTE | 2019-02-26 13:35 | CONS ---
Assessment/Plan Assessment/Plan Hospital Course (Demo Recall) All noted Fluid culture growing E. coli and enterococcus species Antimicrobials: Oral Levaquin, IV ampicillin Physical examination: Well-developed young man who is alert in no distress head atraumatic normocephalic neck is supple chest rise symmetrical breath sounds clear heart: S1-S2 abdomen soft, left-sided pigtail catheter present with bloody drainage, small amount Assessment: 1. Systemic inflammatory response syndrome 2. Perforated sigmoid diverticulitis/abscesses, status post CT-guided drainage 3. S/p diarrhea==> neg C. difficile Plan: Remains stable, s/p CT guided drainage 02/20/19, repeat CT noted, abscess resolved, diverticulitis persists, continue present care, anticipate dcv on oral Levaquin and Augmentin for 7 more days Consultation Date/Type/Reason Admit Date/Time Feb 11, 2019 at 00:43 Initial Consult Date 02/11/19 Type of Consult id Date/Time of Note DATE: 02/26/19 TIME: 13:34 Exam/Review of Systems Exam Vitals Vital Signs Date Temp Pulse Resp B/P (MAP) Pulse Ox O2 O2 Flow FiO2 Time Delivery Rate 02/26/19 97.7 63 18 120/66 98 08:00 (84) 02/26/19 Room Air 01:41 Intake and Output 02/25/19 02/25/19 02/26/19 1414:59 22:59 06:59 IntakeIntake Total 770 ml 1500 ml 650 ml OutputOutput Total 205 ml 5 ml BalanceBalance 770 ml 1295 ml 645 ml Results Result Diagram: 02/25/19 0458 02/25/19 0458 Medications Medication Current Medications Dextrose/Sodium Chloride 1,000 ml @ 50 mls/hr Q20H IV Last administered on 02/25/19at 17:10; Admin Dose 50 MLS/HR; Start 02/11/19 at 01:51 IV Flush (NS 3 ml) 3 ml PER PROTOCOL IV ; Start 02/11/19 at 02:00 Ondansetron HCl (Zofran Inj) 4 mg Q6H PRN IV NAUSEA/VOMITING Last administered on 02/12/19at 06:52; Admin Dose 4 MG; Start 02/11/19 at 02:00 Morphine Sulfate (morphine) 4 mg Q4H PRN IV .SEVERE PAIN 7-10 Last administered on 02/14/19 12:27; Admin Dose 4 MG; Start 02/11/19 at 02:00 Docusate Sodium (Colace) 200 mg BID PO Last administered on 02/25/19 20:19; Admin Dose 200 MG; Start 02/18/19 at 21:00 Magnesium Hydroxide (Milk Of Mag) 20 ml BID PO Last administered on 02/26/19 08:26; Admin Dose 20 ML; Start 02/18/19 at 21:00 Acetaminophen/ Hydrocodone Bitart ([place] (5/325)) 1 tab Q4H PRN PO MODERATE PAIN LEVEL 4-6; Start 02/20/19 at 16:30 Acetaminophen/ Hydrocodone Bitart ([place] (10/325)) 1 tab Q6H PRN PO PAIN LEVEL 7-10 Last administered on 02/21/19 05:05; Admin Dose 1 TAB; Start 02/20/19 at 16:30 Levofloxacin (Levaquin) 750 mg DAILY@06 PO Last administered on 02/26/19 05:27; Admin Dose 750 MG; Start 02/23/19 at 06:00 Ampicillin 50 ml @ 100 mls/hr Q8 IVPB Last administered on 02/26/19 05:28; Admin Dose 100 MLS/HR; Start 02/23/19 at 14:00 Famotidine (Pepcid) 20 mg BID PO Last administered on 02/26/19 08:25; Admin Dose 20 MG; Start 02/24/19 at 21:00 Lactobacillus Acidophilus/ Rhamnosus (Culturelle) 1 cap BID PO Last administered on 02/26/19 08:25; Admin Dose 1 CAP; Start 02/24/19 at 21:00 Enoxaparin Sodium (Lovenox) 40 mg DAILY SC Last administered on 02/25/19 08:21; Admin Dose 40 MG; Start 02/25/19 at 09:00 MINDA CANTRELL NP February 26, 2019 13:35
[2019-02-26 14:00] VITALS: BP 121/67; PULSE 69; RESP 18
--- NOTE | 2019-02-26 15:54 | PN ---
Date/Time of Note Date/Time of Note DATE: 02/26/19 TIME: 15:51 Assessment/Plan VTE Prophylaxis Risk score (from Ns)>0 risk: 1 SCD applied (from Nsg): Yes SCD contraindicated: low risk/ambulating Pharmacological prophylaxis: LMWH Lines/Catheters IV Catheter Type (from Nrsg): Saline Lock Urinary Cath still in place: No Assessment/Plan Hospital Course Assessment and plan 1. Perforated sigmoid diverticulitis, stable finish antibiotics. Drain care. appreciate surgical assistance 2. Peritonitis 3. Sirs/ sepsis? 4. History of nephrolithiasis S: 02/24 events : No fever 02/26: Tolerating diet no fever. O: Vital signs stable PE No pallor Regular Clear Bs+ nt nd; no RRG drain CDI No edema Result Diagram: 02/25/19 0458 02/25/19 0458 Exam/Review of Systems Exam Vitals Vital Signs Date Temp Pulse Resp B/P (MAP) Pulse Ox O2 O2 Flow FiO2 Time Delivery Rate 02/26/19 69 18 121/67 97 14:00 (85) 02/26/19 97.7 08:00 02/26/19 Room Air 01:41 Intake and Output 02/25/19 02/25/19 02/26/19 1515:00 23:00 07:00 IntakeIntake Total 770 ml 1500 ml 650 ml OutputOutput Total 205 ml 5 ml BalanceBalance 770 ml 1295 ml 645 ml Medications Medication Current Medications Dextrose/Sodium Chloride 1,000 ml @ 50 mls/hr Q20H IV Last administered on 02/25/19 17:10; Admin Dose 50 MLS/HR; Start 02/11/19 at 01:51 IV Flush (NS 3 ml) 3 ml PER PROTOCOL IV ; Start 02/11/19 at 02:00 Ondansetron HCl (Zofran Inj) 4 mg Q6H PRN IV NAUSEA/VOMITING Last administered on 02/12/19at 06:52; Admin Dose 4 MG; Start 02/11/19 at 02:00 Morphine Sulfate (morphine) 4 mg Q4H PRN IV .SEVERE PAIN 7-10 Last administered on 02/14/19at 12:27; Admin Dose 4 MG; Start 02/11/19 at 02:00 Docusate Sodium (Colace) 200 mg BID PO Last administered on 02/25/19 20:19; Admin Dose 200 MG; Start 02/18/19 at 21:00 Magnesium Hydroxide (Milk Of Mag) 20 ml BID PO Last administered on 02/26/19 08:26; Admin Dose 20 ML; Start 02/18/19 at 21:00 Acetaminophen/ Hydrocodone Bitart ([place] (5/325)) 1 tab Q4H PRN PO MODERATE P AIN LEVEL 4-6; Start 02/20/19 at 16:30 Acetaminophen/ Hydrocodone Bitart ([place] (10/325)) 1 tab Q6H PRN PO PAIN LEVEL 7-10 Last administered on 02/21/19 05:05; Admin Dose 1 TAB; Start 02/20/19 at 16:30 Levofloxacin (Levaquin) 750 mg DAILY@06 PO Last administered on 02/26/19 05:27; Admin Dose 750 MG; Start 02/23/19 at 06:00 Ampicillin 50 ml @ 100 mls/hr Q8 IVPB Last administered on 02/26/19 13:41; Admin Dose 100 MLS/HR; Start 02/23/19 at 14:00 Famotidine (Pepcid) 20 mg BID PO Last administered on 02/26/19 08:25; Admin Dose 20 MG; Start 02/24/19 at 21:00 Lactobacillus Acidophilus/ Rhamnosus (Culturelle) 1 cap BID PO Last administered on 02/26/19 08:25; Admin Dose 1 CAP; Start 02/24/19 at 21:00 Enoxaparin Sodium (Lovenox) 40 mg DAILY SC Last administered on 02/25/19 08:21; Admin Dose 40 MG; Start 02/25/19 at 09:00 LAY JOSÉ MD February 26, 2019 15:54
[2019-02-26 20:30] VITALS: BP 119/65; PULSE 71; RESP 19
[2019-02-27 02:33] VITALS: BP 132/63; PULSE 71; RESP 18
[2019-02-27] MEDS: AMPICILLIN 1 GM/NS (PMX) 50 ML IVPB SCH ×2 (05:07→14:19)
[2019-02-27] MEDS: LEVOFLOXACIN 750 MG TABLET PO SCH (05:08)
[2019-02-27 08:11] VITALS: BP 115/66; PULSE 66; RESP 18
--- NOTE | 2019-02-27 08:24 | DS ---
Date/Time of Note Date/Time of Note DATE: 02/27/19 TIME: 08:22 Discharge Summary Admission/Discharge Info Admit Date/Time Feb 11, 2019 at 00:43 Discharge Date/Time Patient Condition: Stable Consults Dr Rommel Gillis Procedures CAT scan abdomen pelvis #3 IMPRESSION: 1. Since the previous CT of 02/18/2019, a drainage catheter with the pigtail tip has been placed from a left gluteal approach into the midline pelvic intraperitoneal abscess cavity which has essentially resolved. The smaller loculated fluid collection previously seen anterior to the left psoas muscle and external iliac vessels is no longer identified. 2. Persistent diverticulitis involving the sigmoid colon with bowel wall thickening and stranding within the adjacent fat. There is no evidence of bowel obstruction. The vermiform appendix is mildly prominent in caliber but otherwise unremarkable. The stomach is now moderately distended with food debris. 3. There is no free intraperitoneal fluid or air. 4. Mild persistent hepatomegaly with a persistent 1.2 cm nodular lucency seen within the posterior right lobe which may represent a cyst or a small hemangioma. The spleen remains mildly enlarged. 5. The lung bases are now clear. 02/25/2019 21:53 Hx of Present Illness 28-year-old gentleman admitted with concern of colitis Hospital Course Hospitalist coverage/hospital course Evaluated managed for colitis due to diverticulitis. Contained perforation. Patient seen by general surgery. Underwent CT-guided drain drainage of abscess. Repeat imaging shows resolution of abscess. Drain will be removed today by IR. Home on antibiotics/ diet instructions. And follow ups. 1. Perforated sigmoid diverticulitis/ abscess, stable finish antibiotics. appreciate surgical assistance 2. Peritonitis 3. Sirs/ sepsis? 4. History of nephrolithiasis S: 6 events noted /: No fever 02/26: Tolerating diet no fever. 02/27: no events O: Vital signs stable PE No pallor Regular Clear Bs+ nt nd; no RRG drain CDI No edema Home Meds Reported Medications Acetaminophen* (Acetaminophen*) 500 MG Extra Strength Tablet, 500 MG PO Q4H PRN for PAIN AND OR ELEVATED TEMP, TAB 02/11/19 Ibuprofen* (Ibuprofen*) 200 Mg Capsule, 400 MG PO QID PRN for PAIN, CAP 02/11/19 Primary Care Provider Not On Staff Doctor Time spent on discharge: > 30 minutes LAY JOSÉ MD February 27, 2019 08:24
--- NOTE | 2019-02-27 08:25 | PDOCDIS ---
Discharge Instructions CONDITION [id number] Patient Condition: [id number] Stable HOME CARE INSTRUCTIONS: [id number] Special Diet: [id number] soft/ bland; no nuts / seeds; low fiber ACTIVITY: [id number] Activity Restrictions: [id number] Slowly Increase Activity FOLLOW UP/APPOINTMENTS Follow-up Plan appt Primary 1wk Dr Rommel Gillis 1wk GI referral 1wks LAY JOSÉ MD February 27, 2019 08:25
[2019-02-27] MEDS ORDERED: METR-122 PO (08:27)
[2019-02-27] MEDS ORDERED: DOCU-144 PO (08:27)
[2019-02-27] MEDS ORDERED: CIPR500T4 PO (08:27)
[2019-02-27] MEDS: ENOXAPARIN 40 MG/0.4 ML SYG SC SCH (08:58)
[2019-02-27] MEDS: MAGNESIUM HYDROXIDE 30ML CUP PO SCH (08:58)
[2019-02-27] MEDS: FAMOTIDINE 20 MG TAB PO SCH (08:59)
[2019-02-27] MEDS: DOCUSATE SODIUM 100 MG CAP PO SCH (08:59)
[2019-02-27] MEDS: LACTOBACILLUS RHAMNOSUS CAP PO SCH (08:59)
--- NOTE | 2019-02-27 12:10 | CONS ---
Assessment/Plan Assessment/Plan Hospital Course (Demo Recall) No acute changes Fluid culture growing E. coli and enterococcus species Antimicrobials: Oral Levaquin, IV ampicillin Physical examination: Well-developed young man who is alert in no distress head atraumatic normocephalic neck is supple chest rise symmetrical breath sounds clear heart: S1-S2 abdomen soft, left-sided pigtail catheter present with bloody drainage, small amount Assessment: 1. Systemic inflammatory response syndrome 2. Perforated sigmoid diverticulitis/abscesses, status post CT-guided drainage 3. S/p diarrhea==> neg C. difficile Plan: Remains stable, s/p CT guided drainage 02/20/19, repeat CT noted, abscess resolved, diverticulitis persists, continue present care, anticipate dcv on oral Levaquin and Augmentin for 7 more days Consultation Date/Type/Reason Admit Date/Time Feb 11, 2019 at 00:43 Initial Consult Date 02/11/19 Type of Consult id Date/Time of Note DATE: 02/27/19 TIME: 12:09 Exam/Review of Systems Exam Vitals Vital Signs Date Temp Pulse Resp B/P (MAP) Pulse Ox O2 O2 Flow FiO2 Time Delivery Rate 02/27/19 97.8 66 18 115/66 96 Room Air 08:11 (82) Intake and Output 02/26/19 02/26/19 02/27/19 1515:00 23:00 07:00 IntakeIntake Total 450 ml 1360 ml 840 ml OutputOutput Total 200 ml 207 ml 400 ml BalanceBalance 250 ml 1153 ml 440 ml Results Result Diagram: 02/25/19 0458 02/25/19 0458 Medications Medication Current Medications Dextrose/Sodium Chloride 1,000 ml @ 50 mls/hr Q20H IV Last administered on 02/26/19at 18:28; Admin Dose 50 MLS/HR; Start 02/11/19 at 01:51 IV Flush (NS 3 ml) 3 ml PER PROTOCOL IV ; Start 02/11/19 at 02:00 Ondansetron HCl (Zofran Inj) 4 mg Q6H PRN IV NAUSEA/VOMITING Last administered on 02/12/19at 06:52; Admin Dose 4 MG; Start 02/11/19 at 02:00 Morphine Sulfate (morphine) 4 mg Q4H PRN IV .SEVERE PAIN 7-10 Last administered on 4/26/19at 12:27; Admin Dose 4 MG; Start 02/11/19 at 02:00 Docusate Sodium (Colace) 200 mg BID PO Last administered on 02/27/19 08:59; Ad min Dose 200 MG; Start 02/18/19 at 21:00 Magnesium Hydroxide (Milk Of Mag) 20 ml BID PO Last administered on 02/27/19 08:58; Admin Dose 20 ML; Start 02/18/19 at 21:00 Acetaminophen/ Hydrocodone Bitart ([place] (5/325)) 1 tab Q4H PRN PO MODERATE PAIN LEVEL 4-6; Start 02/20/19 at 16:30 Acetaminophen/ Hydrocodone Bitart ([place] (10/325)) 1 tab Q6H PRN PO PAIN LEVEL 7-10 Last administered on 02/21/19 05:05; Admin Dose 1 TAB; Start 02/20/19 at 16:30 Levofloxacin (Levaquin) 750 mg DAILY@06 PO Last administered on 02/27/19 05:08; Admin Dose 750 MG; Start 02/23/19 at 06:00 Ampicillin 50 ml @ 100 mls/hr Q8 IVPB Last administered on 02/27/19 05:07; Admin Dose 100 MLS/HR; Start 02/23/19 at 14:00 Famotidine (Pepcid) 20 mg BID PO Last administered on 02/27/19 08:59; Admin Dose 20 MG; Start 02/24/19 at 21:00 Lactobacillus Acidophilus/ Rhamnosus (Culturelle) 1 cap BID PO Last administered on 02/27/19 08:59; Admin Dose 1 CAP; Start 02/24/19 at 21:00 Enoxaparin Sodium (Lovenox) 40 mg DAILY SC Last administered on 02/27/19 08:58; Admin Dose 40 MG; Start 02/25/19 at 09:00 MINDA CANTRELL NP February 27, 2019 12:10
[2019-02-27 13:35] VITALS: BP 118/78; PULSE 78; RESP 18
== END 2019-02-27 17:35 | disposition home or self-care (01) | DRG 871 ==
LOC: FTE 16:28 → MS1 02-11 00:43
PROVIDERS: ADMIT Internal Medicine; ATTEND Internal Medicine
PROC: 0W9J30Z Drainage of Pelvic Cavity with Drainage Device, Percutaneous Approach (ICD-10-PCS; principal; 2019-02-20)
PROC: 0WPJ30Z Removal of Drainage Device from Pelvic Cavity, Percutaneous Approach (ICD-10-PCS; 2019-02-27)
DX: A41.9 Sepsis, unspecified organism (principal); K68.12 Psoas muscle abscess; K57.20 Diverticulitis of large intestine with perforation and abscess without bleeding; K59.00 Constipation, unspecified; R19.7 Diarrhea, unspecified
CPT/HCPCS: 36415; 36589; 71045; 74177; 77012; 80048; 80053; 80069; 80202; 81001; 83605; 83690; 83735; 84100; 84443; 85025; 85049; 85610; 85670; 85730; 87070; 87075; 87400; 96374; 96375; 96376; C1729; J0131; J0290; J1170; J1450; J1650; J2185; J2270; J2405; J2543; J3010; J3370; J3480; J7030; J7040; J7042; J7050; Q9967